=== PATIENT | male | born 1985 ===

== ENCOUNTER 2021-05-11 13:30 | Outpatient (REF) | payer MEDICAID, OTHER, SELFPAY ==
--- NOTE | ~2021-05-11 | XR_ITS ---
EXAMINATION: XR CHEST CLINICAL INFORMATION: Chest pain COMPARISON: None TECHNIQUE: 2 views of the chest were obtained. FINDINGS: No significant abnormality is noted involving the heart, lungs, mediastinum, bony thorax or soft tissues. XR/XR chest 2V IMPRESSION: Unremarkable examination.
== END 2021-05-11 13:31 | disposition home or self-care (01) ==
LOC: HO.XRAY 13:30
PROVIDERS: PCP Emergency Medicine; Visit Provider Emergency Medicine
DX: R07.9 Chest pain, unspecified (principal); M54.9 Dorsalgia, unspecified
CPT/HCPCS: 71046

== ENCOUNTER 2022-01-04 14:19 | Outpatient (REF) | payer MEDICAID, OTHER, SELFPAY ==
--- NOTE | ~2022-01-04 | XR_ITS ---
EXAMINATION: XR CERVICAL SPINE XR THORACIC SPINE CLINICAL INFORMATION: Cervical dorsalgia. COMPARISON: None TECHNIQUE: 6 views of the cervical spine, 2 views thoracic spine FINDINGS: Cervical Spine: There is reversal of the normal cervical lordosis. Vertebral body heights are well maintained. There is disc space narrowing at C7-T1. Remainder of the disc spaces are well maintained. Foramina are not optimally visualized. No soft tissue swelling, fractures or subluxations are seen. Thoracic Spine: Vertebral body heights and disc spaces are well maintained. No paravertebral soft tissue swelling is seen. No fractures or bony destructive lesions XR/XR cervical spine 4V IMPRESSION: 1. Mild disc space narrowing at C7-T1. 2. No significant abnormality seen in the thoracic spine.
--- NOTE | ~2022-01-04 | XR_ITS ---
EXAMINATION: XR CERVICAL SPINE XR THORACIC SPINE CLINICAL INFORMATION: Cervical dorsalgia. COMPARISON: None TECHNIQUE: 6 views of the cervical spine, 2 views thoracic spine FINDINGS: Cervical Spine: There is reversal of the normal cervical lordosis. Vertebral body heights are well maintained. There is disc space narrowing at C7-T1. Remainder of the disc spaces are well maintained. Foramina are not optimally visualized. No soft tissue swelling, fractures or subluxations are seen. Thoracic Spine: Vertebral body heights and disc spaces are well maintained. No paravertebral soft tissue swelling is seen. No fractures or bony destructive lesions XR/XR thoracic spine 3V IMPRESSION: 1. Mild disc space narrowing at C7-T1. 2. No significant abnormality seen in the thoracic spine.
== END 2022-01-04 14:20 | disposition home or self-care (01) ==
LOC: HO.XRAY 14:19
PROVIDERS: Visit Provider Registered Nurse
DX: M54.2 Cervicalgia (principal); M54.9 Dorsalgia, unspecified
CPT/HCPCS: 72050; 72072

== ENCOUNTER 2022-01-16 19:03 | Emergency (ER) | payer MEDICAID, OTHER, SELFPAY ==
[2022-01-16 19:24] VITALS: BP 128/67; PULSE 77; RESP 18; TEMP 36.7; O2SAT 97; BMI 24.9
--- NOTE | 2022-01-16 19:24 | ED.CHESTPAIN ---
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 Patient states that he has a constant burning sensation which is 9/10 at its worst. He states that the pain is in his the neck, throat, and chest. The pain does not change with hunger or with eating. He states that he has been seen by his primary care doctor and was started on medication but does not know the name of this medication. He states that the medication is not working. The patient states that he is not taking any other medications for the burning sensation. He also states for the last 3 days he has been urinating more frequently knees had pain with urination. He has not noticed any penile discharge. He is sexually active and states that he last had intercourse 1 month prior. The patient is being treated for TB exposure but he does not know the medications that he is taking. <Chris Christie MD - Last Filed: 01/16/22 21:35> MD complaint: chest pain <Chris Christie MD - Last Filed: 01/16/22 21:35> Onset (ago): month(s) (3) <Chris Christie MD - Last Filed: 01/16/22 21:35> Timing of current episode: constant <Chris Christie MD - Last Filed: 01/16/22 21:35> Prior episodes: Yes <Chris Christie MD - Last Filed: 01/16/22 21:35> Pain location: left chest <Chris Christie MD - Last Filed: 01/16/22 21:35> Pain radiation: none <Chris Christie MD - Last Filed: 01/16/22 21:35> Severity: severe <Chris Christie MD - Last Filed: 01/16/22 21:35> Pain scale (0-10): 8 <Chris Christie MD - Last Filed: 01/16/22 21:35> Quality: other (Burning) <Chris Christie MD - Last Filed: 01/16/22 21:35> Relieving factors: nothing <Chris Christie MD - Last Filed: 01/16/22 21:35> Exacerbating factors: nothing <Chris Christie MD - Last Filed: 01/16/22 21:35> Related Data Home Medications: Previous Rx's Medication Instructions Recorded aluminum hydrox-magnesium carb 254 10 ml PO QID PRN dyspepsia #355 mL 01/16/22 mg-237.5 mg/5 mL oral suspension (Gaviscon Extra Strength) omeprazole 20 mg capsule,delayed 40 mg PO DAILY 30 days #60 caps 01/16/22 release <Patricia Wang CNP - Last Filed: 01/16/22 20:59> Allergies/Adverse Reactions: Allergies Allergy/AdvReac Type Severity Reaction Status Date / Time No Known Allergies Allergy Verified 01/16/22 19:30 <Patricia Wang CNP - Last Filed: 01/16/22 20:59> Review of Systems Review of Systems: Yes all other systems are reviewed and are negative <Chris Christie MD - Last Filed: 01/16/22 21:35> [facility] Past Medical History [facility] Narrative: Past medical history: TB treatment-current. Past surgical history: None. Social history: He denies tobacco, alcohol and drug use. <Chris Christie MD - Last Filed: 01/16/22 21:35> Social History Social History: Social History Advance Directives: No Advance Directives Information Provided: No <Patricia WangDAVID - Last Filed: 01/16/22 20:59> Physical Exam Vital Signs: Vital Signs: Last Vital Signs Temp 99.1 F 01/16/22 20:57 Pulse 75 01/16/22 20:57 Resp 20 01/16/22 20:57 BP 131/90 H 01/16/22 20:57 Pulse Ox 99 01/16/22 20:57 O2 Del Method 01/16/22 20:57 BMI result Body Mass Index 24.9 <Patricia Wang CNP - Last Filed: 01/16/22 20:59> Vital Signs: Last Vital Signs Temp 99.1 F 01/16/22 20:57 Pulse 75 01/16/22 20:57 Resp 20 01/16/22 20:57 BP 131/90 H 01/16/22 20:57 Pulse Ox 99 01/16/22 20:57 O2 Del Method 01/16/22 20:57 BMI result Body Mass Index 24.9 <Chris Christie MD - Last Filed: 01/16/22 21:35> Const: General: cooperative and no acute distress <Chris Christie MD - Last Filed: 01/16/22 21:35> Orientation/consciousness: oriented to person and oriented to place <Chris Christie MD - Last Filed: 01/16/22 21:35> Limitations: no limitations <Chris Christie MD - Last Filed: 01/16/22 21:35> HEENT: Head: Yes normal to inspection, Yes normocephalic and Yes atraumatic <Chris Christie MD - Last Filed: 01/16/22 21:35> Ears: external ears normal <Chris Christie MD - Last Filed: 01/16/22 21:35> General nose exam: Normal external nose present <Chris Christie MD - Last Filed: 01/16/22 21:35> Face and sinus: Yes normal facial exam <Chris Christie MD - Last Filed: 01/16/22 21:35> Mouth: Normal oral and palatal mucosa present <Chris Christie MD - Last Filed: 01/16/22 21:35> Throat: Yes posterior oropharynx normal <MD Eleanor Petersen Last Filed: 01/16/22 21:35> Eyes: General: appearance normal, both eyes and all related structures <Chris Christie MD - Last Filed: 01/16/22 21:35> Pupils: Equal, round and reactive pupils present <Chris Christie MD - Last Filed: 01/16/22 21:35> Neck: Neck: Yes normal visual inspection, Yes no lymphadenopathy, Yes trachea midline and Yes supple <Chris Christie MD - Last Filed: 01/16/22 21:35> Chest: Chest palpation & inspection: normal inspection of the chest and normal palpation of entire chest wall <Chris Christie MD - Last Filed: 01/16/22 21:35> Resp: Effort & Inspection: normal respiratory effort and able to speak in complete sentences <MD Eleanor Petersen Last Filed: 01/16/22 21:35> Auscultation: clear to auscultation bilaterally <Chris Christie MD - Last Filed: 01/16/22 21:35> Cardio: Rate: regular rate <MD Eleanor Petersen Last Filed: 01/16/22 21:35> Rhythm: regular rhythm <MD Eleanor Petersen Last Filed: 01/16/22 21:35> Heart sounds: S1 normal heart sound present, S2 normal heart sound present and no murmurs <MD Eleanor Petersen Last Filed: 01/16/22 21:35> GI: Inspection: Yes normal to inspection <MD Eleanor Petersen Last Filed: 01/16/22 21:35> Palpation (GI): Soft to palpation, nontender and no guarding <MD Eleanor Petersen Last Filed: 01/16/22 21:35> Auscultation: normal bowel sounds <MD Eleanor Petersen Last Filed: 01/16/22 21:35> : Other: Normal, circumcised male penis, no penile discharge noted, no lesions noted, testicles are descended, nontender <Chris Christie MD - Last Filed: 01/16/22 21:35> General: Yes no CVA tenderness <Chris Christie MD - Last Filed: 01/16/22 21:35> Back/Spine/Pelvis: Back: no CVA tenderness <Chris Christie MD - Last Filed: 01/16/22 21:35> Skin: General skin exam: no rashes or lesions noted <Chris Christie MD - Last Filed: 01/16/22 21:35> Neuro: General: oriented to person and oriented to place <Chris Christie MD - Last Filed: 01/16/22 21:35> Cranial nerves: Yes CN's II-XII intact bilaterally and Yes Equal, round and reactive pupils present <Chris Christie MD - Last Filed: 01/16/22 21:35> Cognition (Neuro): normal cognition <Chris Christie MD - Last Filed: 01/16/22 21:35> Motor exam (neuro): 5/5 motor strength present throughout <Chris Christie MD - Last Filed: 01/16/22 21:35> Extrem: General: Yes normal to inspection <Chris Christie MD - Last Filed: 01/16/22 21:35> Psych: Appearance: grossly normal <Chris Christie MD - Last Filed: 01/16/22 21:35> Speech and movement: Normal speech and movement present <Chris Christie MD - Last Filed: 01/16/22 21:35> Affect: normal affect <Chris Christie MD - Last Filed: 01/16/22 21:35> Attitude: cooperative <Chris Christie MD - Last Filed: 01/16/22 21:35> Thought process: Normal thought process present <Chris Christie MD - Last Filed: 01/16/22 21:35> Thought content: Normal thought content present <Chris Christie MD - Last Filed: 01/16/22 21:35> Course Course Course Narrative: RME: Patient is a 36 year old male with no reported pmhx, who presents to the emergency department for chest pain. Described as a burning pain. felt all throughout the middle and left anterior chest. Pain is constant since onset a few months ago. States it is not made worsewith eating or while lying supine. Also having dysuria x 3 days. States he has been taking a medication from PCP for TB, reports he does not have an active infection but to prevent spread. Denies shortness of breath, weight loss, night sweats. PE: CA&Ox4, speaking clear full sentences, LSCTA, no respiratory distress. Ambulatory with steady gait. Epigastric tenderness upon exam Plan: CBC, CMP, troponin, EKG, Chest x-ray, unrinalysis <Patricia Wang, TAX ASSESSOR - Last Filed: 01/16/22 20:59> RME: Patient is a 36 year old male with no reported pmhx, who presents to the emergency department for chest pain. Described as a burning pain. felt all throughout the middle and left anterior chest. Pain is constant since onset a few months ago. States it is not made worsewith eating or while lying supine. Also having dysuria x 3 days. States he has been taking a medication from PCP for TB, reports he does not have an active infection but to prevent spread. Denies shortness of breath, weight loss, night sweats. PE: CA&Ox4, speaking clear full sentences, LSCTA, no respiratory distress. Ambulatory with steady gait. Epigastric tenderness upon exam Plan: CBC, CMP, troponin, EKG, Chest x-ray, unrinalysis Course: RME reviewed. Patient's physical examination was unremarkable, exam was normal. Laboratory evaluation revealed a normal CBC. CMP revealed an elevated glucose of 143. High sensitive troponin I was below detectable limits. Urinalysis was negative. COVID-19 and influenza were negative. Is 12 EKG was unremarkable. At this time I suspect that the patient's pain is secondary to his esophagitis/gastritis I did discuss this with him. Patient is not no what medications he is taking. I prescribed Prilosec 40 mg daily and this time Gaviscon 4 times a day. I also ordered a urine for gonorrhea and chlamydia. The patient was advised to follow-up with his PCP in 2 weeks for re-evaluation and return if he is worse in any way. <Chris Christie MD - Last Filed: 01/16/22 21:35> MDM - Chest Pain Medical Records Data Attestation: I reviewed the patient's medical records. <Chris Christie MD - Last Filed: 01/16/22 21:35> Lab Data Attestation: I reviewed the patient's lab results. <Chris Christie MD - Last Filed: 01/16/22 21:35> Result diagrams: : 01/16/22 20:07 01/16/22 20:07 <Patricia Wang CNP - Last Filed: 01/16/22 20:59> Labs: Lab Results 01/16/22 01/16/22 01/16/22 Range/Units 20:00 20:00 20:00 WBC (4.8-10.8) X10*3/uL RBC (4.60-5.80) X10*6/uL Hgb (14.0-18.0) g/dl Hct (42.0-52.0) % MCV (80.0-98.0) fL MCH (27.0-33.0) pg MCHC (31.0-36.0) g/dl RDW (11.0-16.0) % Plt Count (160-400) X10*3/uL MPV (9.4-12.4) fL Immature Gran % (Auto) (0.0-0.4) % Neut % (Auto) (45-73) % Lymph % (Auto) (20-40) % [place] % (Auto) (2-11) % Eos % (Auto) (0-4) % Baso % (Auto) (0-2) % Lymph # (Auto) (1.2-4.9) X10*3/uL [place] # (Auto) (0.1-1.2) X10*3/uL Eos # (Auto) (0.0-0.4) X10*3/uL Baso # (Auto) (0.0-0.2) X10*3/uL Abs Immat Gran (auto) (0.00-0.03) X10*3/uL Absolute Neuts (auto) (2.0-8.3) x10*3/uL Absolute Nucleated RBC (0.0-0.012) X10*3/uL Nucleated RBC % (auto) (0.0-0.2) /100WBC Sodium (135-145) mmol/L Potassium (3.3-5.1) mmol/L Chloride (96-108) mmol/L Carbon Dioxide (22-29) mmol/L Anion Gap (12-20) BUN (9-16) mg/dL Creatinine (0.5-1.4) mg/dL Estim Creat Clear Calc Estimated GFR Random Glucose (60-115) mg/dL Calcium (8.4-10.2) mg/dL Total Bilirubin (0.0-1.0) mg/dL AST (5-37) U/L ALT (0-40) U/L Alkaline Phosphatase (39-117) U/L Troponin I High Sens (<3.5-35.0) ng/L Total Protein (6.5-8.0) g/dL Albumin (3.5-5.0) g/dL Lipase (8-78) U/L Urine Color Yellow Urine Appearance Clear Urine pH 6.5 (5.0-9.0) Ur Specific [place] <= 1.005 (1.005-1.025) Urine Protein Negative (Neg-Trace) mg/dL Urine Glucose (UA) Negative (Negative) mg/dL Urine Ketones Negative (Negative) mg/dL Urine Blood Negative (Negative) Urine Nitrite Negative (Negative) Ur Leukocyte Esterase Negative (Negative) COVID-19 ([facility]ICK) Negative (Negative) COVID-19 Clin Com See Note Influenza Type A ([facility]) Negative (Negative) Influenza Type B ([facility]S) Negative (Negative) Influenza A & B Note See Note 01/16/22 01/16/22 01/16/22 Range/Units 20:07 20:07 20:07 WBC 5.4 (4.8-10.8) X10*3/uL RBC 4.49 L (4.60-5.80) X10*6/uL Hgb 14.3 (14.0-18.0) g/dl Hct 40.7 L (42.0-52.0) % MCV 90.6 (80.0-98.0) fL MCH 31.8 (27.0-33.0) pg MCHC 35.1 (31.0-36.0) g/dl RDW 11.9 (11.0-16.0) % Plt Count 212 (160-400) X10*3/uL MPV 8.9 L (9.4-12.4) fL Immature Gran % (Auto) 0.2 (0.0-0.4) % Neut % (Auto) 51.3 (45-73) % Lymph % (Auto) 40.6 H (20-40) % [place] % (Auto) 5.8 (2-11) % Eos % (Auto) 1.5 (0-4) % Baso % (Auto) 0.6 (0-2) % Lymph # (Auto) 2.2 (1.2-4.9) X10*3/uL [place] # (Auto) 0.3 (0.1-1.2) X10*3/uL Eos # (Auto) 0.1 (0.0-0.4) X10*3/uL Baso # (Auto) 0.0 (0.0-0.2) X10*3/uL Abs Immat Gran (auto) 0.01 (0.00-0.03) X10*3/uL Absolute Neuts (auto) 2.8 (2.0-8.3) x10*3/uL Absolute Nucleated RBC 0.000 (0.0-0.012) X10*3/uL Nucleated RBC % (auto) 0.0 (0.0-0.2) /100WBC Sodium 140 (135-145) mmol/L Potassium 4.0 (3.3-5.1) mmol/L Chloride 104 (96-108) mmol/L Carbon Dioxide 27 (22-29) mmol/L Anion Gap 13 (12-20) BUN 10 (9-16) mg/dL Creatinine 0.77 (0.5-1.4) mg/dL Estim Creat Clear Calc 125.1 Estimated GFR > 60 Random Glucose 143 H (60-115) mg/dL Calcium 9.3 (8.4-10.2) mg/dL Total Bilirubin 0.3 (0.0-1.0) mg/dL AST 28 (5-37) U/L ALT 39 (0-40) U/L Alkaline Phosphatase 96 (39-117) U/L Troponin I High Sens < 3.5 (<3.5-35.0) ng/L Total Protein 7.2 (6.5-8.0) g/dL Albumin 4.5 (3.5-5.0) g/dL Lipase 17 (8-78) U/L Urine Color Urine Appearance Urine pH (5.0-9.0) Ur Specific [place] (1.005-1.025) Urine Protein (Neg-Trace) mg/dL Urine Glucose (UA) (Negative) mg/dL Urine Ketones (Negative) mg/dL Urine Blood (Negative) Urine Nitrite (Negative) Ur Leukocyte Esterase (Negative) COVID-19 ([facility]ICK) (Negative) COVID-19 Clin Com Influenza Type A ([facility]) (Negative) Influenza Type B ([facility]) (Negative) Influenza A & B Note <Patricia Wang CNP - Last Filed: 01/16/22 20:59> Lab Results 01/16/22 01/16/22 01/16/22 Range/Units 20:00 20:00 20:00 WBC (4.8-10.8) X10*3/uL RBC (4.60-5.80) X10*6/uL Hgb (14.0-18.0) g/dl Hct (42.0-52.0) % MCV (80.0-98.0) fL MCH (27.0-33.0) pg MCHC (31.0-36.0) g/dl RDW (11.0-16.0) % Plt Count (160-400) X10*3/uL MPV (9.4-12.4) fL Immature Gran % (Auto) (0.0-0.4) % Neut % (Auto) (45-73) % Lymph % (Auto) (20-40) % [place] % (Auto) (2-11) % Eos % (Auto) (0-4) % Baso % (Auto) (0-2) % Lymph # (Auto) (1.2-4.9) X10*3/uL [place] # (Auto) (0.1-1.2) X10*3/uL Eos # (Auto) (0.0-0.4) X10*3/uL Baso # (Auto) (0.0-0.2) X10*3/uL Abs Immat Gran (auto) (0.00-0.03) X10*3/uL Absolute Neuts (auto) (2.0-8.3) x10*3/uL Absolute Nucleated RBC (0.0-0.012) X10*3/uL Nucleated RBC % (auto) (0.0-0.2) /100WBC Sodium (135-145) mmol/L Potassium (3.3-5.1) mmol/L Chloride (96-108) mmol/L Carbon Dioxide (22-29) mmol/L Anion Gap (12-20) BUN (9-16) mg/dL Creatinine (0.5-1.4) mg/dL Estim Creat Clear Calc Estimated GFR Random Glucose (60-115) mg/dL Calcium (8.4-10.2) mg/dL Total Bilirubin (0.0-1.0) mg/dL AST (5-37) U/L ALT (0-40) U/L Alkaline Phosphatase (39-117) U/L Troponin I High Sens (<3.5-35.0) ng/L Total Protein (6.5-8.0) g/dL Albumin (3.5-5.0) g/dL Lipase (8-78) U/L Urine Color Yellow Urine Appearance Clear Urine pH 6.5 (5.0-9.0) Ur Specific [place] <= 1.005 (1.005-1.025) Urine Protein Negative (Neg-Trace) mg/dL Urine Glucose (UA) Negative (Negative) mg/dL Urine Ketones Negative (Negative) mg/dL Urine Blood Negative (Negative) Urine Nitrite Negative (Negative) Ur Leukocyte Esterase Negative (Negative) COVID-19 ([facility]ICK) Negative (Negative) COVID-19 Clin Com See Note Influenza Type A ([facility]) Negative (Negative) Influenza Type B ([facility]) Negative (Negative) Influenza A & B Note See Note 01/16/22 01/16/22 01/16/22 Range/Units 20:07 20:07 20:07 WBC 5.4 (4.8-10.8) X10*3/uL RBC 4.49 L (4.60-5.80) X10*6/uL Hgb 14.3 (14.0-18.0) g/dl Hct 40.7 L (42.0-52.0) % MCV 90.6 (80.0-98.0) fL MCH 31.8 (27.0-33.0) pg MCHC 35.1 (31.0-36.0) g/dl RDW 11.9 (11.0-16.0) % Plt Count 212 (160-400) X10*3/uL MPV 8.9 L (9.4-12.4) fL Immature Gran % (Auto) 0.2 (0.0-0.4) % Neut % (Auto) 51.3 (45-73) % Lymph % (Auto) 40.6 H (20-40) % [place] % (Auto) 5.8 (2-11) % Eos % (Auto) 1.5 (0-4) % Baso % (Auto) 0.6 (0-2) % Lymph # (Auto) 2.2 (1.2-4.9) X10*3/uL [place] # (Auto) 0.3 (0.1-1.2) X10*3/uL Eos # (Auto) 0.1 (0.0-0.4) X10*3/uL Baso # (Auto) 0.0 (0.0-0.2) X10*3/uL Abs Immat Gran (auto) 0.01 (0.00-0.03) X10*3/uL Absolute Neuts (auto) 2.8 (2.0-8.3) x10*3/uL Absolute Nucleated RBC 0.000 (0.0-0.012) X10*3/uL Nucleated RBC % (auto) 0.0 (0.0-0.2) /100WBC Sodium 140 (135-145) mmol/L Potassium 4.0 (3.3-5.1) mmol/L Chloride 104 (96-108) mmol/L Carbon Dioxide 27 (22-29) mmol/L Anion Gap 13 (12-20) BUN 10 (9-16) mg/dL Creatinine 0.77 (0.5-1.4) mg/dL Estim Creat Clear Calc 125.1 Estimated GFR > 60 Random Glucose 143 H (60-115) mg/dL Calcium 9.3 (8.4-10.2) mg/dL Total Bilirubin 0.3 (0.0-1.0) mg/dL AST 28 (5-37) U/L ALT 39 (0-40) U/L Alkaline Phosphatase 96 (39-117) U/L Troponin I High Sens < 3.5 (<3.5-35.0) ng/L Total Protein 7.2 (6.5-8.0) g/dL Albumin 4.5 (3.5-5.0) g/dL Lipase 17 (8-78) U/L Urine Color Urine Appearance Urine pH (5.0-9.0) Ur Specific [place] (1.005-1.025) Urine Protein (Neg-Trace) mg/dL Urine Glucose (UA) (Negative) mg/dL Urine Ketones (Negative) mg/dL Urine Blood (Negative) Urine Nitrite (Negative) Ur Leukocyte Esterase (Negative) COVID-19 ([facility]) (Negative) COVID-19 Clin Com Influenza Type A ([facility]) (Negative) Influenza Type B ([facility]) (Negative) Influenza A & B Note <Chris Christie MD - Last Filed: 01/16/22 21:35> ECG Data ECG #1: Interpretation: 2000: Normal sinus rhythm with a rate of 71, normal intervals, no ST segment elevation, no ST segment depression, no PVCs, no PACs, no T-wave abnormalities. This is a normal EKG. There is no previous EKG for comparison. <Chris Christie MD - Last Filed: 01/16/22 21:35> Discharge Plan Discharge Clinical Impression: Esophagitis, Dysuria Gastritis Qualifiers: Gastritis type: unspecified gastritis Chronicity: acute Gastritis bleeding: without bleeding Qualified Code(s): K29.00 - Acute gastritis without bleeding <Patricia Wang CNP - Last Filed: 01/16/22 20:59> Patient Disposition: Home, Self-Care <Patricia Wang CNP - Last Filed: 01/16/22 20:59> Instructions: Gastritis (ED), Dysuria (ED), Esophagitis (ED) <Patricia Wang CNP - Last Filed: 01/16/22 20:59> Additional Instructions: Your blood work was normal. Your urinalysis was normal with no signs of an infection Your COVID-19 and flu test were negative. Your EKG was normal. At this time, I believe that your chest and throat pain or caused by too much acid in your stomach and on your esophagus which is causing the burning. Take Prilosec (omeprazole) 20 mg pills, 2 pill once a day for 1 month. This medication shuts off your acid production and lets the inflammation in your stomach and esophagus heal. Take Gaviscon 10 mL 4 times a day for 2 weeks. I sent a urine test for gonorrhea and chlamydia, this will not come back today, you will need to check this with your doctor to see if this is the cause of the burning sensation when you. Follow-up with your doctor in 2 days. Please return to the emergency department if your symptoms get worse or if you develop any symptoms that are concerning to you. <Patricia Wang CNP - Last Filed: 01/16/22 20:59> Prescriptions: New omeprazole 20 mg capsule,delayed release(DR/EC) 40 mg PO DAILY 30 Days Qty: 60 0RF Gaviscon Extra Strength 254-237.5 mg/5 mL suspension 10 ml PO QID PRN (Reason: dyspepsia) Qty: 355 0RF <Patricia Wang CNP - Last Filed: 01/16/22 20:59>
--- NOTE | 2022-01-16 19:30 | ECG_ITS ---
Test Reason : CP Blood Pressure : / mmHG Vent. Rate : 071 BPM Atrial Rate : 071 BPM P-R Int : 154 ms QRS Dur : 092 ms QT Int : 392 ms P-R-T Axes : 053 054 035 degrees QTc Int : 425 ms Normal sinus rhythm Normal ECG No previous ECGs available Referred By: Patricia Wang Electronically Signed By:ERIKA DIAZ MD
[2022-01-16 20:13] LABS: MANUAL DIFF FLAG NO
[2022-01-16 20:16] LABS: Basophils Percent Auto 0.6 % (0-2); Eosinophils Absolute Auto 0.1 X10*3/uL (0.0-0.4); Eosinophils Percent Auto 1.5 % (0-4); Hematocrit 40.7 % (42.0-52.0); Hemoglobin 14.3 g/dl (14.0-18.0); Imm Gran Abs Auto 0.01 X10*3/uL (0.00-0.03); Imm Gran Pct Auto 0.2 % (0.0-0.4); Lymphocytes Absolute Auto 2.2 X10*3/uL (1.2-4.9); Lymphocytes Percent Auto 40.6 % (20-40); Mean Corpuscular HGB Conc 35.1 g/dl (31.0-36.0); Mean Corpuscular Hemoglobin 31.8 pg (27.0-33.0); Mean Corpuscular Volume 90.6 fL (80.0-98.0); Mean Platelet Volume 8.9 fL (9.4-12.4); Monocytes Absolute Auto 0.3 X10*3/uL (0.1-1.2); Monocytes Percent Auto 5.8 % (2-11); Neutrophils Absolute Auto 2.8 x10*3/uL (2.0-8.3); Neutrophils Percent Auto 51.3 % (45-73); Platelet Count 212 X10*3/uL (160-400); Red Blood Count 4.49 X10*6/uL (4.60-5.80); Red Cell Distribution Width 11.9 % (11.0-16.0); White Blood Count 5.4 X10*3/uL (4.8-10.8)
[2022-01-16 20:26] LABS: Appearance Urine Clear; Color Urine Yellow; Glucose Urine UA Negative (Negative); Leukocyte Esterase Urine Negative (Negative); Nitrite Urine Negative (Negative); PH 6.5 (5.0-9.0); Specific Gravity - Urine <= 1.005 (1.005-1.025); Urine Blood Negative (Negative); Urine Ketones Negative (Negative); Urine Protein Negative (Neg-Trace)
[2022-01-16 20:35] LABS: Alanine Aminotransferase 39 U/L (0-40); Albumin Level 4.5 g/dL (3.5-5.0); Alkaline Phosphatase 96 U/L (39-117); Anion Gap 13 (12-20); Aspartate Amino Transferase 28 U/L (5-37); Bilirubin Total 0.3 mg/dL (0.0-1.0); Blood Urea Nitrogen 10 mg/dL (9-16); Calcium 9.3 mg/dL (8.4-10.2); Carbon Dioxide 27 mmol/L (22-29); Chloride 104 mmol/L (96-108); Creatinine Clr Calc Pharmacy 125.1; Estimated Glomerular Filt Rate > 60; Glucose Random 143 mg/dL (60-115); Lipase 17 U/L (8-78); Sodium 140 mmol/L (135-145); Total Protein 7.2 g/dL (6.5-8.0)
[2022-01-16 20:36] LABS: IDNOW Serial# BCCEAD1C; Influenza A Negative (Negative); Influenza B2 Negative (Negative)
[2022-01-16 20:37] LABS: COVID-19 Test Negative (Negative); IDNOW Serial# 16C4AD1C
[2022-01-16 20:42] LABS: Troponin-I High Sensitivity < 3.5 ng/L (<3.5-35.0)
[2022-01-16 20:57] VITALS: BP 131/90; PULSE 75; RESP 20; TEMP 37.3; O2SAT 99
[2022-01-16 21:49] VITALS: BP 111/71; PULSE 75; RESP 16; TEMP 37; O2SAT 98
[2022-01-17 01:16] LABS: CT PCR NOT DETECTED (Not Detect.); NG PCR NOT DETECTED (Not Detect.)
== END 2022-01-16 22:00 | disposition home or self-care (01) ==
PROVIDERS: Nurse Practitioner Family; Emergency Provider Emergency Medicine Emergency Medical Services
DX: K29.00 Acute gastritis without bleeding (principal); K20.90 Esophagitis, unspecified without bleeding; R30.0 Dysuria; Z20.822 Contact with and (suspected) exposure to COVID-19
CPT/HCPCS: 80053; 81003; 83690; 84484; 85025; 87491; 87502; 87591; 87635; 93005; 99283; 99284

== ENCOUNTER 2022-01-23 00:35 | Emergency (ER) | payer MEDICAID, OTHER, SELFPAY ==
--- NOTE | ~2022-01-23 | XR_ITS ---
EXAMINATION: XR CHEST CLINICAL INFORMATION: Chest pain COMPARISON: 05/11/2021 TECHNIQUE: 2 views of the chest were obtained. FINDINGS: The lungs are clear with no focal consolidation. No evidence of pneumothorax, pulmonary edema, or pleural effusions. The cardiomediastinal silhouette is unremarkable. No acute osseous findings. XR/XR chest 2V IMPRESSION: No acute cardiopulmonary findings.
[2022-01-23 00:40] VITALS: BP 126/79; PULSE 69; RESP 18; TEMP 36.6; O2SAT 100; BMI 30.4
--- OUTSIDE RECORDS SUMMARY | 2022-01-23 01:52 | XMS_ITS | Continuity of Care Document ---
:1985 Author Organization [facility] Address [address] [place] [id number]- Care Team Providers Name Role Phone Stella MCMILLAN, Kira Primary Care Physician Encounter [facility] [place] Date(s): 10/30/21 - 11/29/21 [facility] [address] [id number] Allergies, Adverse Reactions, Alerts No Known Medication Allergies Immunizations Given and Recorded Vaccine Date Status Refusal Reason influenza virus vaccine, inactivated 03/01/13 Given influenza virus vaccine, inactivated1 01/12/12 Given influenza virus vaccine, inactivated2 03/30/11 Given hepatitis B adult vaccine3 01/12/12 Given hepatitis B adult vaccine4 04/13/11 Given tetanus-diphtheria toxoids (Td)5 03/30/11 Given 1Admin Note: [id number] Note: vis 09/15/20103Admin Note: VIS 03/25/20114 Admin Note: VIS 09/07/06 [id number] Note: vis 10/19/2007 Given Medications albuterol CFC free 90 mcg/inh inhalation aerosol 2 puffs, Inhalation, 4 times a day, PRN for wheezing, # 18 Gm, 0 Refills, Maintenance, 11/29/13 17:17:53, Aerosol, 2 puffs Inhalation 4 times a day,PRN:for wheezing Start Date: 11/29/13 Status: Orderedamitriptyline 10 mg oral tablet 1 tablet = 10 mg, By Mouth, Daily at bedtime, # 90 tablet, 2 Refills, Maintenance, 06/04/13 13:30:10, Tablet, 1 tablet By Mouth Daily at bedtime Start Date: 06/04/13 Status: OrderedFlomax 0.4 mg oral capsule 0.4 mg, 1, capsule, By Mouth, Daily, # 5 capsule, Refills 0, Tot. Refills 0, Maintenance, 10/16/15 9:02:54, Print Requisition Start Date: 10/16/15 Status: Orderedibuprofen 600 mg oral tablet 1 tablet = 600 mg, By Mouth, Every 8 hours, PRN as needed for pain, Nauruan label, # 42 tablet, 0 Refills, Maintenance, 12/09/14 11:50:41, Tablet, 1 tablet By Mouth Every 8 hours,x14 days,PRN:as neededfor pain,Instr:Nauruan label Start Date: 12/09/14 Stop Date: 12/23/14 Status: OrderedLacri-Lube S.O.P. - ointment 1 application, Eyes, Both, Daily at bedtime, PRN for dry eyes, # 15 Gm, 0 Refills, Maintenance, Ointment Start Date: 08/11/12 Stop Date: 09/01/12 Status: Orderedomeprazole 20 mg oral enteric coated capsule 1 capsule = 20 mg, By Mouth, Daily, cymro instructions, # 30 capsule, 0 Refills, Maintenance, 03/21/14 15:23:52, EC Capsule, 1 capsule By Mouth Daily,Instr:cymro instructions Start Date: 03/21/14 Status: OrderedPercocet-5/325 325 mg-5 mg oral tablet 1, tablet, By Mouth, Every 4 hours, PRN, partial fill possible, # 12 tablet, Refills 0, Tot. Refills0, Maintenance, for pain, 10/16/15 9:03:05, Print Requisition, Tablet Start Date: 10/16/15 Status: Orderedrifampin 300 mg oral capsule 2 capsule = 600 mg, By Mouth, Daily, # 60 capsule, 3 Refills, Maintenance, 09/07/21 14:53:00 EDT, [facility], home delivery- ; [address] [place] [address], [facility], , 165, cm, 08/25/21 11:04:00 EDT, Height Start Date: 09/07/21 Stop Date: 01/05/22 Status: OrderedZofran ODT 4 mg oral tablet, disintegrating 1 tablet = 4 mg, By Mouth, 3 times a day, # 8 tablet, 0 Refills, Maintenance, 10/16/15 9:03:17 Start Date: 10/16/15 Status: Ordered Problem List Condition Confirmation Course Effective Dates Status Health Stat us Informant Tinea pedis Confirmed Active Social History Social History Type Response Smoking Status Never smoker entered on: 06/14/13 Sex Patient Care team information PersonnelName: Kira Douglas NP Address: Address: [address] [place] [id number]
--- OUTSIDE RECORDS SUMMARY | 2022-01-23 01:52 | XMS_ITS | Continuity of Care Document ---
:1985 Author Organization [facility] Address [address] [place] [address]- Care Team Providers Name Role Phone Stella MCMILLAN, Kira Primary Care Physician Encounter [facility] Date(s): 10/30/21 - 11/29/21 [facility] [address] [address] Allergies, Adverse Reactions, Alerts No Known Medication Allergies Immunizations Given and Recorded Vaccine Date Status Refusal Reason influenza virus vaccine, inactivated 03/01/13 Given influenza virus vaccine, inactivated1 01/12/12 Given influenza virus vaccine, inactivated2 03/30/11 Given hepatitis B adult vaccine3 01/12/12 Given hepatitis B adult vaccine4 04/13/11 Given tetanus-diphtheria toxoids (Td)5 03/30/11 Given 1Admin Note: [id number] Note: vis 09/15/20103Admin Note: VIS 03/25/20114 Admin Note: VIS 09/07/06 [id number] Note: vis 10/19/2007 Given Medications albuterol CFC [...] 8 hours, PRN as needed for pain, Kittitian label, # 42 tablet, 0 Refills, Maintenance, 12/09/14 11:50:41, Tablet, 1 tablet By Mouth Every 8 hours,x14 days,PRN:as neededfor pain,Instr:Kittitian label Start Date: 12/09/14 Stop Date: 12/23/14 Status: OrderedLacri-Lube S.O.P. - ointment 1 application, Eyes, Both, Daily at bedtime, PRN for dry eyes, # 15 Gm, 0 Refills, Maintenance, Ointment Start Date: 08/11/12 Stop Date: 09/01/12 Status: Orderedomeprazole 20 mg oral enteric coated capsule 1 capsule = 20 mg, By Mouth, Daily, guinean instructions, # 30 capsule, 0 Refills, Maintenance, 03/21/14 15:23:52, EC Capsule, 1 capsule By Mouth Daily,Instr:guinean instructions Start Date: 03/21/14 Status: OrderedPercocet-5/325 325 mg-5 mg oral tablet 1, tablet, By Mouth, Every 4 hours, PRN, partial fill possible, # 12 tablet, Refills 0, Tot. Refills0, Maintenance, for pain, 10/16/15 9:03:05, Print Requisition, Tablet Start Date: 10/16/15 Status: Orderedrifampin 300 mg oral capsule 2 capsule = 600 mg, By Mouth, Daily, # 60 capsule, 3 Refills, Maintenance, 09/07/21 14:53:00 EDT, [facility], home delivery- ; [address] [place] [address], [facility], , 165, cm, 08/25/21 11:04:00 EDT, [...] information PersonnelName: Kira Douglas NP Address: Address: [address] [place] [id number]
--- OUTSIDE RECORDS SUMMARY | 2022-01-23 01:52 | XMS_ITS | Continuity of Care Document ---
:1985 Author Organization [facility] Address [address] [place] [address]- Care Team Providers Name Role Phone Stella MCMILLAN, Kira Primary Care Physician Encounter [facility] [place] Date(s): 10/30/21 - 11/29/21 [facility] [address] [address] Allergies, Adverse Reactions, Alerts No Known Medication Allergies Immunizations Given and Recorded Vaccine Date Status Refusal Reason influenza virus vaccine, inactivated 03/01/13 Given influenza virus vaccine, inactivated1 01/12/12 Given influenza virus vaccine, inactivated2 03/30/11 Given hepatitis B adult vaccine3 01/12/12 Given hepatitis B adult vaccine4 04/13/11 Given tetanus-diphtheria toxoids (Td)5 03/30/11 Given 1Admin Note: [id number] Note: vis 09/15/20103Admin Note: VIS 03/25/20114 Admin Note: VIS 09/07/06 [id number] Note: vis 10/19/2007 Given Medications albuterol CFC [...] 8 hours, PRN as needed for pain, Malian label, # 42 tablet, 0 Refills, Maintenance, 12/09/14 11:50:41, Tablet, 1 tablet By Mouth Every 8 hours,x14 days,PRN:as neededfor pain,Instr:Malian label Start Date: 12/09/14 Stop Date: 12/23/14 Status: OrderedLacri-Lube S.O.P. - ointment 1 application, Eyes, Both, Daily at bedtime, PRN for dry eyes, # 15 Gm, 0 Refills, Maintenance, Ointment Start Date: 08/11/12 Stop Date: 09/01/12 Status: Orderedomeprazole 20 mg oral enteric coated capsule 1 capsule = 20 mg, By Mouth, Daily, mauritian instructions, # 30 capsule, 0 Refills, Maintenance, 03/21/14 15:23:52, EC Capsule, 1 capsule By Mouth Daily,Instr:mauritian instructions Start Date: 03/21/14 Status: OrderedPercocet-5/325 325 mg-5 mg oral tablet 1, tablet, By Mouth, Every 4 hours, PRN, partial fill possible, # 12 tablet, Refills 0, Tot. Refills0, Maintenance, for pain, 10/16/15 9:03:05, Print Requisition, Tablet Start Date: 10/16/15 Status: Orderedrifampin 300 mg oral capsule 2 capsule = 600 mg, By Mouth, Daily, # 60 capsule, 3 Refills, Maintenance, 09/07/21 14:53:00 EDT, [facility], home delivery- ; [address] [place] [address], [facility], , 165, cm, 08/25/21 11:04:00 EDT, Height [...] information PersonnelName: Kira Douglas NP Address: Address: [address] [place] [id number]
--- OUTSIDE RECORDS SUMMARY | 2022-01-23 01:52 | XMS_ITS | Continuity of Care Document ---
:1985 Author Organization [facility] enter/[facility] Address Unavailable , Care Team Providers Name Role Phone Abhi MCMILLAN, Calista Mcneill Primary Care Physician Encounter [facility] [id number] Date(s): 03/13/21 - 04/12/21 [facility] Attending Physician: Tima Gupta Admitting Physician: Tima Gupta Referring Physician: Tima Gupta Allergies, Adverse Reactions, Alerts No Known Medication Allergies Immunizations Given and Recorded Vaccine Date Status Refusal Reason influenza virus vaccine, inactivated 03/01/13 Given influenza virus vaccine, inactivated1 01/12/12 Given influenza virus vaccine, inactivated2 03/30/11 Given hepatitis B adult vaccine3 01/12/12 Given hepatitis B adult vaccine4 04/13/11 Given tetanus-diphtheria toxoids (Td)5 03/30/11 Given 1Admin Note: [id number] Note: vis 09/15/20103Admin Note: VIS 03/25/20114 Admin Note: VIS 09/07/06 [id number] Note: vis 10/19/2007 Given Medications albuterol CFC free 90 mcg/inh inhalation aerosol 2 puffs, Inhalation, 4 times a day, PRN for wheezing, # 18 Gm, 0 Refills, Maintenance, 11/29/13 17:17:53, Aerosol, 2 puffs Inhalation 4 times a day,PRN:for wheezing Start Date: 11/29/13 Status: Orderedibuprofen 600 mg oral tablet 1 tablet = 600 mg, By Mouth, Every 8 hours, PRN as needed for pain, Polish label, # 42 tablet, 0 Refills, Maintenance, 12/09/14 11:50:41, Tablet, 1 tablet By Mouth Every 8 hours,x14 days,PRN:as neededfor pain,Instr:Polish label Start Date: 12/09/14 Stop Date: 12/23/14 Status: Orderedomeprazole 20 mg oral enteric coated capsule 1 capsule = 20 mg, By Mouth, Daily, french instructions, # 30 capsule, 0 Refills, Maintenance, 03/21/14 15:23:52, EC Capsule, 1 capsule By Mouth Daily,Instr:french instructions Start Date: 03/21/14 Status: Ordered Problem List Condition Effective Dates Status Health Status Informant Tinea pedis(Confirmed) Active Vital Signs Most recent to oldest [Reference Range]: 1 Height 153 cm (12/09/14 11:30 AM) Weight 69 kg (12/09/14 11:30 AM) Pulse Rate [55-90 bpm] 69 bpm (12/09/14 11:30 AM) Body Mass Index [18.50-24.99] 29.48 *H* (12/09/14 11:30 AM) Blood Pressure [90-138/55-84 mm Hg] 118/72 mm Hg (12/09/14 11:30 AM) Temperature [96.8-100.4 DegF] 98.3 DegF (12/09/14 11:30 AM) Temperature Route Oral (12/09/14 11:30 AM) Weight Obtained Via Standing scale (12/09/14 11:30 AM) Social History Social History Type Response Smoking Status Never smoker entered on: 06/14/13 Sex
--- OUTSIDE RECORDS SUMMARY | 2022-01-23 01:53 | XMS_ITS | Continuity of Care Document ---
:1985 Author Organization [facility] Address [address] [place] [address]- Care Team Providers Name Role Phone Kira Douglas NP Primary Care Physician Encounter [facility] Date(s): 09/07/21 - 10/07/21 [facility] [address] [id number] Allergies, Adverse Reactions, Alerts No Known Medication Allergies Immunizations Given and Recorded Vaccine Date Status Refusal Reason influenza virus vaccine, inactivated 03/01/13 Given influenza virus vaccine, inactivated1 01/12/12 Given influenza virus vaccine, inactivated2 03/30/11 Given hepatitis B adult vaccine3 01/12/12 Given hepatitis B adult vaccine4 04/13/11 Given tetanus-diphtheria toxoids (Td)5 03/30/11 Given 1Admin Note: [id number] Note: vis 09/15/20103Admin Note: VIS 03/25/20114 Admin Note: VIS 09/07/06 [id number] Note: vis 10/19/2007 Given Medications albuterol CFC [...] 8 hours, PRN as needed for pain, Afghan label, # 42 tablet, 0 Refills, Maintenance, 12/09/14 11:50:41, Tablet, 1 tablet By Mouth Every 8 hours,x14 days,PRN:as neededfor pain,Instr:Afghan label Start Date: 12/09/14 Stop Date: 12/23/14 Status: OrderedLacri-Lube S.O.P. - ointment 1 application, Eyes, Both, Daily at bedtime, PRN for dry eyes, # 15 Gm, 0 Refills, Maintenance, Ointment Start Date: 08/11/12 Stop Date: 09/01/12 Status: Orderedomeprazole 20 mg oral enteric coated capsule 1 capsule = 20 mg, By Mouth, Daily, sinhala instructions, # 30 capsule, 0 Refills, Maintenance, 03/21/14 15:23:52, EC Capsule, 1 capsule By Mouth Daily,Instr:sinhala instructions Start Date: 03/21/14 Status: OrderedPercocet-5/325 325 mg-5 mg oral tablet 1, tablet, By Mouth, Every 4 hours, PRN, partial fill possible, # 12 tablet, Refills 0, Tot. Refills0, Maintenance, for pain, 10/16/15 9:03:05, Print Requisition, Tablet Start Date: 10/16/15 Status: Orderedrifampin 300 mg oral capsule 2 capsule = 600 mg, By Mouth, Daily, # 60 capsule, 3 Refills, Maintenance, 09/07/21 14:53:00 EDT, [facility], home delivery- ; [address] [place] [address], [facility], , 165, cm, 08/25/21 11:04:00 EDT, Height Start Date: 09/07/21 Stop Date: 01/05/22 Status: OrderedZofran ODT 4 mg oral tablet, disintegrating 1 tablet = 4 mg, By Mouth, 3 times a day, # 8 tablet, 0 Refills, Maintenance, 10/16/15 9:03:17 Start Date: 10/16/15 Status: Ordered Problem List Condition Effective Dates Status Health Status Informant Tinea pedis(Confirmed) Active Social History Social History Type Response Smoking Status Never smoker entered on: 06/14/13 Sex
--- OUTSIDE RECORDS SUMMARY | 2022-01-23 01:53 | XMS_ITS | Continuity of Care Document ---
:1985 Author Organization [facility] Address [address] [place] [address]- Care Team Providers Name Role Phone Kira Douglas NP Primary Care Physician Encounter [facility] Date(s): 08/25/21 - 09/24/21 [facility] [address] [address] Attending Physician: Tima Gupta Admitting Physician: Tima Gupta Referring Physician: AdmtrTima Allergies, Adverse Reactions, Alerts No Known Medication Allergies Immunizations Given and Recorded Vaccine Date Status Refusal Reason influenza virus vaccine, inactivated 03/01/13 Given influenza virus vaccine, inactivated1 01/12/12 Given influenza virus vaccine, inactivated2 03/30/11 Given hepatitis B adult vaccine3 01/12/12 Given hepatitis B adult vaccine4 04/13/11 Given tetanus-diphtheria toxoids (Td)5 03/30/11 Given 1Admin Note: [id number] Note: vis 09/15/20103Admin Note: VIS Admin Note: VIS 09/07/06 [id number] Note: vis 10/19/2007 Given Medications albuterol CFC [...] 8 hours, PRN as needed for pain, Kazakh label, # 42 tablet, 0 Refills, Maintenance, 12/09/14 11:50:41, Tablet, 1 tablet By Mouth Every 8 hours,x14 days,PRN:as neededfor pain,Instr:Kazakh label Start Date: 12/09/14 Stop Date: 12/23/14 Status: OrderedLacri-Lube S.O.P. - ointment 1 application, Eyes, Both, Daily at bedtime, PRN for dry eyes, # 15 Gm, 0 Refills, Maintenance, Ointment Start Date: 08/11/12 Stop Date: 09/01/12 Status: Orderedomeprazole 20 mg oral enteric coated capsule 1 capsule = 20 mg, By Mouth, Daily, wallisian instructions, # 30 capsule, 0 Refills, Maintenance, 03/21/14 15:23:52, EC Capsule, 1 capsule By Mouth Daily,Instr:wallisian instructions Start Date: 03/21/14 Status: OrderedPercocet-5/325 325 mg-5 mg oral tablet 1, tablet, By Mouth, Every 4 hours, PRN, partial fill possible, # 12 tablet, Refills 0, Tot. Refills0, Maintenance, for pain, 10/16/15 9:03:05, Print Requisition, Tablet Start Date: 10/16/15 Status: Orderedrifampin 300 mg oral capsule 2 capsule = 600 mg, By Mouth, Daily, # 60 capsule, 3 Refills, Maintenance, 09/07/21 14:53:00 EDT, [facility], home delivery- ; [address] [place] [address], , 165, cm, 08/25/21 11:04:00 EDT, Height [...]
--- OUTSIDE RECORDS SUMMARY | 2022-01-23 01:53 | XMS_ITS | Continuity of Care Document ---
:1985 Author Organization [facility] Address [address] [place] [address]- Care Team Providers Name Role Phone Stella MCMILLAN, Kira Primary Care Physician [place] [facility] [place] 10/[place]/21 - 11/29/21 [facility] [address] [id number] Allergies, Adverse Reactions, Alerts No Known Medication Allergies Immunizations Given and Recorded Vaccine Date Status Refusal Reason influenza virus vaccine, inactivated 03/01/13 Given influenza virus vaccine, inactivated1 01/12/12 Given influenza virus vaccine, inactivated2 03/30/11 Given hepatitis B adult vaccine3 01/12/12 Given hepatitis B adult vaccine4 04/13/11 Given tetanus-diphtheria toxoids (Td)5 03/30/11 Given 1Admin Note: [id number] Note: vis 09/15/20103Admin Note: VIS 03/25/20114 Admin Note: VIS 09/07/06 [id number] Note: vis 10/19/2007 Given Medications albuterol CFC [...] 8 hours, PRN as needed for pain, Botswanan label, # 42 tablet, 0 Refills, Maintenance, 12/09/14 11:50:41, Tablet, 1 tablet By Mouth Every 8 hours,x14 days,PRN:as neededfor pain,Instr:Botswanan label Start Date: 12/09/14 Stop Date: 12/23/14 Status: OrderedLacri-Lube S.O.P. - ointment 1 application, Eyes, Both, Daily at bedtime, PRN for dry eyes, # 15 Gm, 0 Refills, Maintenance, Ointment Start Date: 08/11/12 Stop Date: 09/01/12 Status: Orderedomeprazole 20 mg oral enteric coated capsule 1 capsule = 20 mg, By Mouth, Daily, taiwanese instructions, # 30 capsule, 0 Refills, Maintenance, 03/21/14 15:23:52, EC Capsule, 1 capsule By Mouth Daily,Instr:taiwanese instructions Start Date: 03/21/14 Status: OrderedPercocet-5/325 325 mg-5 mg oral tablet 1, tablet, By Mouth, Every 4 hours, PRN, partial fill possible, # 12 tablet, Refills 0, Tot. Refills0, Maintenance, for pain, 10/16/15 9:03:05, Print Requisition, Tablet Start Date: 10/16/15 Status: Orderedrifampin 300 mg oral capsule 2 capsule = 600 mg, By Mouth, Daily, # 60 capsule, 3 Refills, Maintenance, 09/07/21 14:53:00 EDT, [facility], home delivery- ; [address] [place] [address], [facility], , 165, cm, 08/25/21 11:04:00 EDT, [...] information PersonnelName: Kira Douglas NP Address: Address: [address] [place] [id number]
--- NOTE | 2022-01-23 03:47 | ED.GENADULT ---
HPI - General Adult General Chief complaint: General Medical Stated complaint: Chest discomfort Time Seen by Provider: 01/23/22 03:32 Source: patient Mode of arrival: ambulatory Limitations: no limitations History of Present Illness HPI narrative: 36-year-old male who presents emergency department for evaluation of left-sided chest pain times 2-3 months. Patient states that he has a constant burning sensation in his left chest and in the center of his chest. He states that the pain is 10/10 at its worst. He feels the pain in his neck and his throat as well. Pain does not change with hunger or with eating. The patient was seen in the emergency department by me on 01/16/2022 for similar complaints. The patient's laboratory evaluation was unremarkable and his EKG was unremarkable. I treated the patient for gastritis and esophagitis with omeprazole 40 mg once a day and Gaviscon extra-strength 10 mL 4 times a day. He states that despite taking this medication he is not feeling better, therefore came back to the emergency department for evaluation. Related Data Previous Rx's Medication Instructions Recorded aluminum hydrox-magnesium carb 254 10 ml PO QID PRN dyspepsia #355 mL 01/16/22 mg-237.5 mg/5 mL oral suspension (Gaviscon Extra Strength) omeprazole 20 mg capsule,delayed 40 mg PO DAILY 30 days #60 caps 01/16/22 release Allergies Allergy/AdvReac Type Severity Reaction Status Date / Time No Known Allergies Allergy Verified 01/23/22 00:54 Review of Systems Review of Systems: Yes all other systems are reviewed and are negative [facility] Past Medical History [facility] Narrative: Past medical history: None. Past surgical history: None. Social history: He denies tobacco, alcohol and drug use. Social History Social History Advance Directives: No Advance Directives Information Provided: Yes Physical Exam ED Vital Signs: Vital Signs - 24 hr 01/23/22 00:40 Temperature 97.9 F Pulse Rate 69 Respiratory Rate 18 Blood Pressure 126/79 Pulse Oximetry 100 Oxygen Delivery Method Room Air BMI result Body Mass Index 30.4 Const General: cooperative and no acute distress Orientation/consciousness: oriented to person and oriented to place Limitations: no limitations HENMT Head: Yes normal to inspection, Yes normocephalic and Yes atraumatic Ears: external ears normal General nose exam: Normal external nose present Face and sinus: Yes normal facial exam Mouth: Normal oral and palatal mucosa present Throat: Yes posterior oropharynx normal Eyes General: appearance normal, both eyes and all related structures Pupils: Equal, round and reactive pupils present Neck Neck: Yes normal visual inspection, Yes no lymphadenopathy, Yes trachea midline and Yes supple Chest Chest palpation & inspection: normal inspection of the chest and normal palpation of entire chest wall Resp Effort & Inspection: normal respiratory effort and able to speak in complete sentences Auscultation: clear to auscultation bilaterally Cardio Rate: regular rate Rhythm: regular rhythm Heart sounds: S1 normal heart sound present, S2 normal heart sound present and no murmurs GI Inspection: Yes normal to inspection Palpation (GI): Soft to palpation, nontender and no guarding Auscultation: normal bowel sounds General: Yes no CVA tenderness Back/Spine/Pelvis Back: no CVA tenderness Skin General skin exam: no rashes or lesions noted Neuro General: oriented to person and oriented to place Cranial nerves: Yes CN's II-XII intact bilaterally and Yes Equal, round and reactive pupils present Cognition (Neuro): normal cognition Motor exam (neuro): 5/5 motor strength present throughout Extrem General: Yes normal to inspection Psych Appearance: grossly normal Speech and movement: Normal speech and movement present Affect: normal affect Attitude: cooperative Thought process: Normal thought process present Thought content: Normal thought content present Course Course Course Narrative: 36-year-old male who presents emergency department for evaluation neck, sternal and left-sided chest burning sensation times 2-3 months. Patient was seen in the emergency department on 01/16/2022 by me and had a negative workup. Patient was treated for possible esophagitis and gastritis causes pain with Prilosec 40 mg once a day and Gaviscon extra-strength 10 mL 4 times a day. He states that despite taking this medication is not feeling better therefore came to the emergency department for re-evaluation. Patient's vital signs were normal. Examination was unremarkable. At this time I do not think that repeating his blood work would be helpful but I did order a chest x-ray two view. Patient was treated with Maalox 30 cc, viscous lidocaine 10 cc and 10 cc orally to see if this improves his discomfort. 0505: Patient did get improvement with the above medications. His chest x-ray was unremarkable. At this time I do believe that his pain is caused by gastritis esophagitis encouraged him to continue taking the Prilosec and the Gaviscon. Patient will need to follow-up with his PCP for re-evaluation and possible referral to a room service runner. Medications Administered Discontinued Medications Generic Name Dose Route Start Last Admin Trade Name Freq PRN Reason Stop Dose Admin Al Hydroxide/Mg Hydroxide 30 ml 01/23/22 03:46 01/23/22 03:56 Magnesium Hydrox/Alum Hydrox 30 Ml Oral.Susp PO 01/23/22 03:47 30 ml ONCE STA Administration Belladonna Alkaloids/Phenobarbital 10 ml 01/23/22 03:46 01/23/22 03:59 Phenobarb/Hyoscy/Atropine/Scop 10 Ml Elixir PO 01/23/22 03:47 10 ml ONCE ONE Administration Lidocaine HCl 10 ml 01/23/22 03:46 01/23/22 03:59 Lidocaine Hcl Viscous 2 % 15 Ml Solution PO 01/23/22 03:47 10 ml ONCE ONE Administration Discharge Plan Discharge Clinical Impression: Gastritis, Esophagitis Patient Disposition: Home, Self-Care Instructions: Esophagitis (ED) Additional Instructions: Continue taking your Prilosec and extra-strength Gaviscon as prescribed that your previous ED visit. Follow-up with your doctor in 2 days to discuss further treatment and to discuss referral to a room service runner. Please return to the emergency department if your symptoms get worse or if you develop any symptoms that are concerning to you. Prescriptions: No Action omeprazole 20 mg capsule,delayed release(DR/EC) 40 mg PO DAILY 30 Days Qty: 60 0RF Gaviscon Extra Strength 254-237.5 mg/5 mL suspension 10 ml PO QID PRN (Reason: dyspepsia) Qty: 355 0RF Print Language: Mongolian
[2022-01-23] MEDS: Magnesium Hydrox/Alum Hydrox 30 ML ORAL.SUSP PO (03:56)
[2022-01-23] MEDS: PHENobarb/Hyoscy/Atropine/Scop 10 ML ELIXIR PO (03:59)
[2022-01-23] MEDS: Lidocaine HCl Viscous 2 % 15 ML SOLUTION 10 ML PO (03:59)
== END 2022-01-23 05:17 | disposition home or self-care (01) ==
PROVIDERS: Emergency Provider Emergency Medicine Emergency Medical Services
DX: K29.70 Gastritis, unspecified, without bleeding (principal); K20.90 Esophagitis, unspecified without bleeding
CPT/HCPCS: 71046; 99283

== ENCOUNTER 2022-02-04 15:58 | Outpatient (REF) | payer MEDICAID, OTHER, SELFPAY ==
--- NOTE | ~2022-02-04 | XR_ITS ---
EXAMINATION: XR CHEST CLINICAL INFORMATION: Burning chest pain COMPARISON: Chest radiographs 01/23/2022, 05/11/2021 TECHNIQUE: 2 views of the chest were obtained. FINDINGS: Lungs clear. No pneumothorax, pleural reaction, infiltrate, or effusion. Heart size normal. The hilar and mediastinal contours and visualized bony structures are unremarkable. XR/XR chest 2V IMPRESSION: Unremarkable examination.
== END 2022-02-04 15:59 | disposition home or self-care (01) ==
LOC: HO.XRAY 15:58
PROVIDERS: PCP Registered Nurse; Visit Provider Registered Nurse
DX: R07.89 Other chest pain (principal)
CPT/HCPCS: 71046

== ENCOUNTER 2022-02-11 16:15 | Outpatient (REF) | payer MEDICAID, OTHER, SELFPAY | END 2022-02-11 16:16 | disposition home or self-care (01) | LOC: HO.RESP 16:15 | PROVIDERS: PCP Registered Nurse; Visit Provider Registered Nurse | DX: R06.02 Shortness of breath (principal) | CPT/HCPCS: 94060; 94727; 94729 ==

== ENCOUNTER 2022-02-24 23:25 | Emergency (ER) | payer MEDICAID, OTHER, SELFPAY ==
--- NOTE | 2022-02-24 | ECG_ITS ---
Test Reason : CHEST PAIN Blood Pressure : / mmHG Vent. Rate : 059 BPM Atrial Rate : 059 BPM P-R Int : 154 ms QRS Dur : 092 ms QT Int : 416 ms P-R-T Axes : 053 056 052 degrees QTc Int : 411 ms Sinus bradycardia Otherwise normal ECG When compared with ECG of 16-JAN-2022 20:01, No significant change was found Referred By: Generic ED Physician Electronically Signed By:BRAD LION
--- NOTE | ~2022-02-24 | XR_ITS ---
EXAMINATION: XR CHEST CLINICAL INFORMATION: Chest pain COMPARISON: 02/04/2022 TECHNIQUE: Frontal view of the chest was obtained. FINDINGS: No significant abnormality is noted involving the heart, lungs, mediastinum, bony thorax or soft tissues. XR/XR chest 1V IMPRESSION: Unremarkable examination.
[2022-02-24 23:35] VITALS: BP 126/80; PULSE 65; RESP 20; TEMP 36.6; O2SAT 99; BMI 25.0
[2022-02-25 00:12] LABS: Basophils Percent Auto 0.7 % (0-2); Eosinophils Absolute Auto 0.1 X10*3/uL (0.0-0.4); Eosinophils Percent Auto 1.9 % (0-4); Hematocrit 42.1 % (42.0-52.0); Hemoglobin 15.1 g/dl (14.0-18.0); Imm Gran Abs Auto 0.01 X10*3/uL (0.00-0.03); Imm Gran Pct Auto 0.2 % (0.0-0.4); Lymphocytes Percent Auto 48.3 % (20-40); MANUAL DIFF FLAG NO; Mean Corpuscular HGB Conc 35.9 g/dl (31.0-36.0); Mean Corpuscular Hemoglobin 32.5 pg (27.0-33.0); Mean Corpuscular Volume 90.5 fL (80.0-98.0); Mean Platelet Volume 9.4 fL (9.4-12.4); Monocytes Absolute Auto 0.3 X10*3/uL (0.1-1.2); Monocytes Percent Auto 6.4 % (2-11); Neutrophils Absolute Auto 1.8 x10*3/uL (2.0-8.3); Neutrophils Percent Auto 42.5 % (45-73); Platelet Count 188 X10*3/uL (160-400); Red Blood Count 4.65 X10*6/uL (4.60-5.80); Red Cell Distribution Width 11.5 % (11.0-16.0); White Blood Count 4.2 X10*3/uL (4.8-10.8)
[2022-02-25 00:26] LABS: Anion Gap 14 (12-20); Blood Urea Nitrogen 7 mg/dL (9-16); Calcium 9.4 mg/dL (8.4-10.2); Carbon Dioxide 26 mmol/L (22-29); Chloride 101 mmol/L (96-108); Creatinine Clr Calc Pharmacy 105.5; Estimated Glomerular Filt Rate > 60; Glucose Random 108 mg/dL (60-115); Potassium 4.3 mmol/L (3.3-5.1); Sodium 137 mmol/L (135-145)
[2022-02-25 00:34] LABS: Troponin-I High Sensitivity < 3.5 ng/L (<3.5-35.0)
[2022-02-25 02:26] VITALS: BP 113/78; PULSE 65; RESP 11; TEMP 36.7; O2SAT 98
--- NOTE | 2022-02-25 02:26 | MHC.EDTECH ---
pt is resting on the stretcher vitals were taken, i ask how he was feeling he replied not good i have pain , i said ok i will let the nurse know
--- NOTE | 2022-02-25 03:42 | ED.CHESTPAIN ---
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 No shortness of breath, symptoms is not exertional in nature. No lower extremity swelling or pain. No nausea, no vomiting, no change in the bowel movement, no recent loss of weight. Related Data Previous Rx's Medication Instructions Recorded aluminum hydrox-magnesium carb 254 10 ml PO QID PRN dyspepsia #355 mL 01/16/22 mg-237.5 mg/5 mL oral suspension (Gaviscon Extra Strength) omeprazole 20 mg capsule,delayed 40 mg PO DAILY 30 days #60 caps 01/16/22 release omeprazole magnesium 20 mg 20 mg PO BID #30 tabs 02/25/22 tablet,delayed release (Prilosec OTC) Allergies Allergy/AdvReac Type Severity Reaction Status Date / Time No Known Allergies Allergy Verified 01/23/22 00:54 Review of Systems Review of Systems: all other systems are reviewed and are negative Constitutional: Reports as per HPI and Reports no additional constitutional complaints Eyes: Reports as per HPI and Reports no additional eye complaints Reports system reviewed and no additional complaints, except as documented Cardiovascular: Reports as per HPI and Reports no additional cardiovascular complaints Respiratory: Reports as per HPI and Reports no additional respiratory complaints Gastrointestinal: Reports as per HPI and Reports no additional gastrointestinal complaints Genitourinary: Reports no additional female genitourinary complaints Musculoskeletal: Reports no additional musculoskeletal complaints Skin/Breast: Reports system reviewed and no additional complaints, except as docu Psychiatric: Reports no additional psychiatric complaints Endocrine: Reports no additional endocrine complaints Hematologic/Lymphatic: Reports no additional hematologic/lymphatic complaints Allergic/Immunologic: Reports no additional allergic/immunologic complaints Reports system reviewed and no additional complaints, except as documented and Reports Abnormal speech present [facility] Social History Social History Advance Directives: No Physical Exam Vital Signs: Vital Signs: Last Vital Signs Temp 98.1 F 02/25/22 02:26 Pulse 65 02/25/22 02:26 Resp 11 L 02/25/22 02:26 BP 113/78 02/25/22 02:26 Pulse Ox 98 02/25/22 02:26 O2 Del Method 02/25/22 02:26 BMI result Body Mass Index 25.0 vital signs have been reviewed as appeared to be correct. Blood pressure normal. Heart rate normal. Respiration rate normal. Temperature normal. Oxygen saturation normal. Appearance: Alert. Oriented X3. No acute distress. Head: Normal external exam. Normocephalic. Atraumatic. No Collazo signs noted. No raccoon eyes noted Eyes: PERRLA. EOMI. Conjunctiva and sclera normal. Eyelids normal. ENT: TM's Normal. Pharynx normal. Uvula midline. Moist mucous membranes. No trismus noted. No drooling noted. No muffled voice noted. Neck: Normal inspection. Neck supple. FROM. No adenopathy. Thyroid Normal. No meningeal signs. No neck mass noted. CVS: Normal heart rate and rhythm. Heart sound normal. No murmurs noted. Pulses normal throughout. Respiratory: No respiratory distress. Painless inspiration. Breath sounds normal. No wheezes/rales/rhonchi noted. Chest nontender. No accessory muscle usage noted or decreased air movement noted. Abdomen: Soft, epigastric tenderness, no rebound tenderness, no guarding. Bowel sounds normal in all 4 quadrants. No distention noted. No organomegaly noted. No visible injury noted. Back: No CVA tenderness. Full range of motion noted. Skin: Skin warm and dry. Normal skin color. Normal skin turgor. No rashes/lesions/lacerations noted. Extremities: No lower extremity edema. Extremities exhibit normal range of motion. Extremities nontender. Neuro: Oriented X 3. Cranial nerve exam: II-XII are grossly intact No motor deficit. No sensory deficit. Reflexes normal. Course Course Course Narrative: 37-year-old male came in for epigastric burning sensation with radiation to the chest history of GERD, patient's exam and history is consistent with gastritis/GERD. Will start the patient on PPI and will have the patient follow-up with PCP. Unremarkable cardiac workup with HEART score of 0. Medications Administered Discontinued Medications Generic Name Dose Route Start Last Admin Trade Name Freq PRN Reason Stop Dose Admin Al Hydroxide/Mg Hydroxide 30 ml 02/25/22 03:42 02/25/22 04:01 Magnesium Hydrox/Alum Hydrox 30 Ml Oral.Susp PO 02/25/22 03:43 30 ml ONCE ONE Administration Omeprazole 40 mg 02/25/22 03:42 02/25/22 04:01 Omeprazole 40 Mg Capsule. PO 02/25/22 03:43 40 mg ONCE ONE Administration Medical Decision Making Differential Diagnosis Differential Diagnoses: The differential diagnosis associated with the presentation includes ( Gastritis, GERD, ACS, pneumonia , pneumothorax.) Lab Data MDM Lab Attestation statement: I reviewed the patient's lab results. Result Diagrams: 02/25/22 00:06 02/25/22 00:06 Labs: Lab Results 02/25/22 02/25/22 02/25/22 Range/Units 00:06 00:06 00:06 WBC 4.2 L (4.8-10.8) X10*3/uL RBC 4.65 (4.60-5.80) X10*6/uL Hgb 15.1 (14.0-18.0) g/dl Hct 42.1 (42.0-52.0) % MCV 90.5 (80.0-98.0) fL MCH 32.5 (27.0-33.0) pg MCHC 35.9 (31.0-36.0) g/dl RDW 11.5 (11.0-16.0) % Plt Count 188 (160-400) X10*3/uL MPV 9.4 (9.4-12.4) fL Immature Gran % (Auto) 0.2 (0.0-0.4) % Neut % (Auto) 42.5 L (45-73) % Lymph % (Auto) 48.3 H (20-40) % [place] % (Auto) 6.4 (2-11) % Eos % (Auto) 1.9 (0-4) % Baso % (Auto) 0.7 (0-2) % Lymph # (Auto) 2.0 (1.2-4.9) X10*3/uL [place] # (Auto) 0.3 (0.1-1.2) X10*3/uL Eos # (Auto) 0.1 (0.0-0.4) X10*3/uL Baso # (Auto) 0.0 (0.0-0.2) X10*3/uL Abs Immat Gran (auto) 0.01 (0.00-0.03) X10*3/uL Absolute Neuts (auto) 1.8 L (2.0-8.3) x10*3/uL Absolute Nucleated RBC 0.000 (0.0-0.012) X10*3/uL Nucleated RBC % (auto) 0.0 (0.0-0.2) /100WBC Sodium 137 (135-145) mmol/L Potassium 4.3 (3.3-5.1) mmol/L Chloride 101 (96-108) mmol/L Carbon Dioxide 26 (22-29) mmol/L Anion Gap 14 (12-20) BUN 7 L (9-16) mg/dL Creatinine 0.81 (0.5-1.4) mg/dL Estim Creat Clear Calc 105.5 Estimated GFR > 60 Random Glucose 108 (60-115) mg/dL Calcium 9.4 (8.4-10.2) mg/dL Total Bilirubin 0.5 (0.0-1.0) mg/dL Direct Bilirubin 0.2 (0.0-0.5) mg/dL AST 19 (5-37) U/L ALT 19 (0-40) U/L Alkaline Phosphatase 106 (39-117) U/L Troponin I High Sens < 3.5 (<3.5-35.0) ng/L Total Protein 7.3 (6.5-8.0) g/dL Albumin 4.5 (3.5-5.0) g/dL Lipase 27 (8-78) U/L Independent Interpretation I performed an independent interpretation of an: EKG ( normal sinus rhythm at 60 beat per minutes, normal intervals, no ST-T changes, no change from old EKG.) and Plain X-Ray ( Chest: No acute pathology.) Radiology Impression Discussion of test interpretation with radiology: I have reviewed the radiologist's reading. Discharge Plan Discharge Clinical Impression: Chest pain due to GERD Patient Disposition: Home, Self-Care Instructions: Diet for Stomach Ulcers and Gastritis (ED) Prescriptions: New omeprazole magnesium [Prilosec OTC] 20 mg tablet,delayed release (DR/EC) 20 mg PO BID Qty: 30 0RF No Action omeprazole 20 mg capsule,delayed release(DR/EC) 40 mg PO DAILY 30 Days Qty: 60 0RF Gaviscon Extra Strength 254-237.5 mg/5 mL suspension 10 ml PO QID PRN (Reason: dyspepsia) Qty: 355 0RF Referrals: Jerod Serra MD [Physician] -
[2022-02-25] MEDS: Omeprazole 40 MG CAPSULE.DR PO (04:01)
[2022-02-25] MEDS: Magnesium Hydrox/Alum Hydrox 30 ML ORAL.SUSP PO (04:01)
[2022-02-25 04:07] LABS: Alanine Aminotransferase 19 U/L (0-40); Albumin Level 4.5 g/dL (3.5-5.0); Alkaline Phosphatase 106 U/L (39-117); Aspartate Amino Transferase 19 U/L (5-37); Bilirubin Direct 0.2 mg/dL (0.0-0.5); Bilirubin Total 0.5 mg/dL (0.0-1.0); Lipase 27 U/L (8-78); Total Protein 7.3 g/dL (6.5-8.0)
== END 2022-02-25 04:22 | disposition home or self-care (01) ==
PROVIDERS: Emergency Provider Emergency Medicine
DX: R07.89 Other chest pain (principal); K21.9 Gastro-esophageal reflux disease without esophagitis; Z79.899 Other long term (current) drug therapy
CPT/HCPCS: 36415; 71045; 71250; 80048; 80076; 83690; 84484; 85025; 93005; 99283; 99284

== ENCOUNTER 2022-02-25 14:24 | Outpatient (REF) | payer MEDICAID, OTHER, SELFPAY ==
--- NOTE | ~2022-02-25 | CT_ITS ---
EXAMINATION: CT CHEST WITHOUT CONTRAST CLINICAL INFORMATION: Chest pain COMPARISON: Chest x-ray 02/25/2022 TECHNIQUE: Multidetector volumetric CT imaging of the chest was done. Axial MIP volume rendering provided. Sagittal and coronal reformatted images were obtained. This CT examination was performed using dose optimization techniques as appropriate, variously including the following: *Automated exposure control *Adjustment of mA and/or kV according to patient size (this includes techniques or standardized protocols for targeted exams where dose is matched to indication/reason for exam; i.e. extremities or head) *Use of iterative reconstruction technique DLP: 120 mGy-cm FINDINGS: RETURNING OFFICER: Symmetrically expanded lungs LUNGS: 3 mm calcified right upper lobe granuloma image [id number]. There are a few areas of perifissural thickening likely representing intrapulmonary lymph nodes. 2-3 mm right lower lobe pulmonary nodule image [id number]. MEDIASTINUM: The mediastinum is normal. CORONARY ARTERY CALCIFICATION: None visualized on this study. PLEURA: There is no pleural effusion. No pleural mass or thickening. AXILLA: No lymphadenopathy. UPPER ABDOMEN: Unremarkable. OSSEOUS STRUCTURES: No rib fractures. CT/CT chest wo IV con IMPRESSION: 2 to 3 mm right lower lobe pulmonary micronodule. According to the UPDATED 2017 Fleischner Society recommendations, the advised follow-up imaging for solid nodules < 6 mm is: LOW RISK PATIENT: No routine follow-up. HIGH RISK PATIENT: Optional CT at 12 months. Fleischner guidelines were followed.
== END 2022-02-25 14:25 | disposition home or self-care (01) ==
LOC: HO.CT 14:24
PROVIDERS: PCP Registered Nurse; Visit Provider Internal Medicine
DX: R07.9 Chest pain, unspecified (principal); R63.4 Abnormal weight loss
CPT/HCPCS: 71250

== ENCOUNTER 2022-03-01 11:13 | Outpatient (REF) | payer MEDICAID, OTHER, SELFPAY ==
--- NOTE | ~2022-03-01 | FL_ITS ---
EXAMINATION: FL BARIUM SWALLOW CLINICAL INFORMATION: Dysphagia. COMPARISON: None. TECHNIQUE: Barium swallow examination is performed using fluoroscopic evaluation in addition to multiple fluoroscopic spot views. The patient is imaged both upright and prone and using both thick and thin sulfate along with effervescent granules. Fluoroscopy time: 1.6 minutes. DAP: 5.264 Gy-cm2. Images: 47. FINDINGS: Following oral administration of thick, thin barium and barium-coated turkey, there is normal propagation of bolus from the oral cavity through the pharynx and esophagus and into the stomach without any evidence of obstruction, narrowing or stricture. There is no laryngeal penetration or aspiration. No intraluminal filling defects seen in the pharynx. There is mild retention of barium in the piriform sinuses. On placing patient prone lying and oral administration thin barium, there is good distention of the entire esophagus without any intraluminal filling defect. No gastroesophageal reflux or hiatal hernia seen. FL/FL barium swallow IMPRESSION: Unremarkable barium swallow exam.
== END 2022-03-01 11:14 | disposition home or self-care (01) ==
LOC: HO.XRAY 11:13
PROVIDERS: PCP Internal Medicine; Visit Provider Internal Medicine
DX: R13.10 Dysphagia, unspecified (principal)
CPT/HCPCS: 74220

== ENCOUNTER → 2022-03-17 13:40 | Outpatient (BNVA) | payer MEDICAID, OTHER, SELFPAY | PROVIDERS: PCP Internal Medicine; Visit Provider Internal Medicine | DX: K21.9 Gastro-esophageal reflux disease without esophagitis (principal) | CPT/HCPCS: 99202 ==

== ENCOUNTER 2022-03-22 11:53 | Day surgery (SDC) | payer MEDICAID, OTHER, SELFPAY ==
--- NOTE | 2022-03-19 13:48 | HO.ANESPROP2 ---
Documented by User: Francy Coats NP 03/19/22 13:51 PMFSH Active Problems Active Problems: All Active Problems (Updated 03/17/22 @ 16:31 by Felicia Vega MD) GERD (gastroesophageal reflux disease) (Acute) Social History Social History Alcohol intake: never Patient Tobacco Use Status: Never used Tobacco Use of substances other than those prescribed or required for medical reasons: No Advance Directives: No Advance Directives Information Provided: Yes Meds Allergies Allergy/AdvReac Type Severity Reaction Status Date / Time No Known Allergies Allergy Verified 03/17/22 13:58 Exam Exam Date and Time: March 19, 2022 1348 Pertinent Lab Results Pertinent Lab Results: Laboratory Tests 02/25/22 02/25/22 00:06 00:06 WBC 4.2 L Hgb 15.1 Hct 42.1 Plt Count 188 Sodium 137 Potassium 4.3 Chloride 101 Carbon Dioxide 26 BUN 7 L Creatinine 0.81 Assessment and Plan Assessment Anesthesia Assessment: Chart Reviewed Documented by User: Rosanna Rose MD 03/22/22 14:46 HPI - Anesthesia Eval Consult details Narrative: 37 yr old male for upper GI PMFSH Family History Family history of problems with anesthesia: No Surgical History History of Problems with Anesthesia: No Social History Social History Alcohol intake: never Patient Tobacco Use Status: Never used Tobacco Use of substances other than those prescribed or required for medical reasons: No Advance Directives: No Advance Directives Information Provided: Yes Meds Allergies Allergy/AdvReac Type Severity Reaction Status Date / Time No Known Allergies Allergy Verified 03/17/22 13:58 Exam Airway Mallampati Class: II TM Dist: >3cm Heart: rrr Lungs: cta Assessment and Plan Assessment Anesthesia Assessment: Anesthesia Plan Discussed Final Anesthetic Review Family History of Problems with Anesthesia: No History of Problems with Anesthesia: No NPO: Yes ASA Class: II Final Preanesthetic Review: No Changes in Pt Med Stat, Meds/Allgs Chart Reviewed, Consent Obtained/Reviewed and Anes Risks/Benef Reviewed Patient Risk: Low Procedure Risk: Low Anesthetic Plan Anesthetic Plan: MAC: Disposition: Standard PACU
[2022-03-22 13:35] VITALS: BP 110/73; PULSE 66; RESP 16; TEMP 36.8; O2SAT 99; BMI 27.7
[2022-03-22] MEDS: Lactated Ringers 1,000 ML 100 ML IVCONT (13:47)
--- NOTE | 2022-03-22 14:05 | MHC.SHP ---
Pre-Procedural Eval Section A Date of Service: 03/22/22 The patient is an INPATIENT: No Changes since office visit: Yes Patient answered all questions; No Cold of Flu in the past 2 weeks, No New Medical Problems and No Changes in Medication The History & Physical has been completed within 30 days and I have reviewed it.: Yes Section B Chief Complaint: Esophagitis,reflux disease Allergies: Allergies Allergy/AdvReac Type Severity Reaction Status Date / Time No Known Allergies Allergy Verified 03/17/22 13:58 Plan I have reviewed the history and physical and performed a pertinent physical examination on my patient. No changes have occurred unless specified. Time Spent With Patient Time: Total time managing care of this patient today ____ minutes.
--- NOTE | 2022-03-22 14:06 | P.OP_ITS ---
Operative Note Operative Note Date of Service: 03/22/22 Narrative: Pre-op diagnosis: GERD, chest and epigastric pain Post-op diagnosis:?other (GERD, inlet patch, gastritis, prominent gastric folds) Surgeon: Germán Dickinson MD Anesthesia:?MAC FLEXIBLE TRANSORAL UPPER GASTROINTESTINAL ENDOSCOPY WITH BIOPSIES Consent: Indications for the procedure and potential complications of bleeding, perforation, reaction to medications and missed diagnosis were discussed with the patient and informed consent was obtained. Instrument: Olympus GIF H 190 mid size upper endoscope Monitoring: Vital signs and clinical assessment, continuous EKG monitoring, Pulse oximetry, Carbon Dioxide monitoring and blood pressure monitoring were done throughout the procedure. Procedure: The patient was placed in the left lateral decubitis position and pre-procedure medications were administered and a bite block was placed. The endoscope was inserted into the mouth and advanced under direct vision to the third part of duodenum. A careful inspection was made as the upper endoscope was withdrawn including a retroflexed examination of the proximal stomach; Findings and interventions are described below. Findings: Larynx: Normal Esophagus: A 1.5 cms circular inlet patch in the proximal esophagus ar 16 cms - biopsied. GE junction at 38 cms. No esophagitis or Fisher's. Biopsies were obtained from proximal esophagus to check for EOE and from distal esophagus (33 cms) to check for esophagitis. Stomach: Moderate diffuse gastric erythema with prominent gastric folds. Biopsies were obtained from the gastric folds and antrum. Grade 2 flap valve on retroflexed examination of the cardia. Duodenum: Normal bulb and descending duodenum Intervention: Biopsies as noted above Impression and Post Procedure Diagnosis: Endoscopy Findings: ESOPHAGUS: A 1.5 cms circular inlet patch in the proximal esophagus ar 16 cms - biopsied. GE junction at 38 cms. No esophagitis or Fisher's. Biopsies were obtained from proximal esophagus to check for EOE and from distal esophagus (33 cms) to check for esophagitis. STOMACH: Gastritis, prominent gastric folds. Plan: Await pathology results Patient has an appointment on 04/07/22 in the [facility] with Dr Vega. Above findings were reviewed with the patient and GERD handouts were given in the discharge area Pt appears anxious and had several questions after the procedure which were answered with the help of a Sinhala tap and die maker technician.
--- NOTE | 2022-03-22 14:06 | PM.OP ---
Brief Operative Note Date of Service: 03/22/22 Pre-op diagnosis: GERD, chest and epigastric pain Post-op diagnosis: other (GERD, inlet patch, gastritis, prominent gastric folds) Procedure: FLEXIBLE TRANSORAL UPPER GASTROINTESTINAL ENDOSCOPY WITH BIOPSIES Surgeon: Germán Dickinson MD Anesthesia: MAC Was an Compliance Vice President used for this Procedure?: No Compliance Vice President: Lela Amor Estimated blood loss (mL): 0 Pathology: other (A. gastric antrum bxs, R/O H. pylori B. gastric fold bxs C. distal esophagus, bxs, R/O esophagitis D. proximal esophagus bxs, R/O EoE E. inlet patch bxs @ 16 cms) Condition: stable Disposition: PACU
[2022-03-22 15:39] VITALS: BP 98/59; PULSE 57; RESP 16; TEMP 36.9; O2SAT 99
[2022-03-22 15:54] VITALS: BP 104/69; PULSE 57; RESP 16; TEMP 36.9; O2SAT 99
[2022-03-22 16:10] VITALS: BP 103/68; PULSE 57; RESP 16; TEMP 36.9; O2SAT 100
== END 2022-03-22 16:45 | disposition home or self-care (01) ==
PROVIDERS: Visit Provider Internal Medicine Gastroenterology
PROC: 0DJ08ZZ Inspection of Upper Intestinal Tract, Via Natural or Artificial Opening Endoscopic (ICD-10-PCS; CPT 43235; principal; 2022-03-22 13:50)
DX: K21.9 Gastro-esophageal reflux disease without esophagitis (principal); K22.89 Other specified disease of esophagus; K29.60 Other gastritis without bleeding
CPT/HCPCS: 43239; 88305; 88342

== ENCOUNTER 2022-04-03 18:40 | Emergency (ER) | payer MEDICAID, OTHER, SELFPAY ==
--- NOTE | ~2022-04-03 | US_ITS ---
EXAMINATION: US ABDOMEN COMPLETE CLINICAL INFORMATION: Nausea. Upper abdominal pain. Status post endoscopy.. COMPARISON: None TECHNIQUE: Real-time imaging of the abdominal viscera. FINDINGS: PANCREAS: Obscured by bowel gas. ABDOMINAL AORTA: The proximal, mid, and distal segments are normal in caliber. INFERIOR VENA CAVA: Visualized portions are normal. LIVER: Normal. The liver is normal in size. The liver contour is normal. Parenchymal echogenicity is normal. No focal hepatic lesion. There is no intrahepatic biliary duct dilatation seen. GALLBLADDER: Normal. The gallbladder is physiologically distended without evidence of stones, sludge, polyps, wall thickening or pericholecystic fluid. COMMON BILE DUCT: Normal in caliber measuring 0.2 cm in diameter. RIGHT KIDNEY: Normal. No hydronephrosis. No renal calculi or focal parenchymal lesions. The kidney measures 10.4 cm in maximum dimension. LEFT KIDNEY: Normal. No hydronephrosis. No renal calculi or focal parenchymal lesions. The kidney measures 10.1 cm in maximum dimension. SPLEEN: Normal. The spleen measures 8.1 cm in maximum dimension. FREE FLUID: None. US/US abdomen complete IMPRESSION: Normal ultrasound of the abdomen.
[2022-04-03 19:12] VITALS: BP 106/86; PULSE 71; RESP 16; TEMP 36.3; O2SAT 98; BMI 26.4
--- NOTE | 2022-04-03 19:12 | ED_ITS ---
HPI - Nausea/Vomiting/Diarrhea General Chief complaint: Abdominal Pain <DEYVI Norton - Last Filed: 04/03/22 19:16> Stated complaint: chest/abd pain <DEYVI Norton - Last Filed: 04/03/22 19:16> Time Seen by Provider: 04/03/22 21:04 <DEYVI Norton - Last Filed: 04/03/22 19:16> Source: patient <Ranulfo Lima MD - Last Filed: 04/03/22 21:48> Mode of arrival: ambulatory <Ranulfo Lima MD - Last Filed: 04/03/22 21:48> Limitations: no limitations <Ranulfo Lima MD - Last Filed: 04/03/22 21:48> History of Present Illness HPI Narrative: 37-year-old male presents with epigastric abdominal pain. The pain is moderate to severe in nature. It is burning in sensation. The pain radiates up his esophagus. It is associated with mild nausea but no vomiting. He denies any bloody stools or melanotic stools. Patient had a recent upper endoscopy. The identified a possible H pylori infection. He was started on a medication package with antibiotics and PPI. Since he started the medication, however, his symptoms have worsened significantly. He believes they are associated with the medications themselves. He has had no fever or chills. There are no clear relieving features. It is clearly exacerbated when he takes the medications. He would like to stop taking medications at this time. <Ranulfo Lima MD - Last Filed: 04/03/22 21:48> Related Data Home medications: Previous Rx's Medication Instructions Recorded aluminum hydrox-magnesium carb 254 10 ml PO QID PRN dyspepsia #355 mL 01/16/22 mg-237.5 mg/5 mL oral suspension (Gaviscon Extra Strength) omeprazole 20 mg capsule,delayed 40 mg PO DAILY 30 days #60 caps 01/16/22 release omeprazole magnesium 20 mg 20 mg PO BID #30 tabs 02/25/22 tablet,delayed release (Prilosec OTC) omeprazole 40 mg capsule,delayed 40 mg PO BID 4 weeks #56 caps 03/17/22 release sucralfate 1 gram tablet 1 g PO QIDACHS 14 days #60 tabs 03/17/22 Magic Mouthwash 5 ml PO TID 10 days #240 mL 03/23/22 Diphen/Lido/Antacid 1:1:1 240 mL suspension sennosides 8.6 mg capsule (senna) 17.2 mg PO DAILY PRN constipation 03/23/22 30 days #60 caps bismuth subcit K 140 3 cap PO QID 14 days #168 caps 03/25/22 mg-metronidazole 125 mg-tetracycline 125 mg cap (Pylera) famotidine 20 mg tablet 20 mg PO BEDTIME #30 tabs 04/03/22 pantoprazole 40 mg tablet,delayed 40 mg PO DAILY #30 tabs 04/03/22 release <DEYVI Norton - Last Filed: 04/03/22 19:16> Allergies/Adverse reactions: Allergies Allergy/AdvReac Type Severity Reaction Status Date / Time No Known Allergies Allergy Verified 03/17/22 13:58 <DEYVI Norton - Last Filed: 04/03/22 19:16> Review of Systems Review of Systems: CONSTITUTIONAL: Denies weight loss, fever and chills. HEENT: Denies changes in vision and hearing. RESPIRATORY: Denies SOB and cough. CV: Denies palpitations no CP. GI: + abdominal pain, nausea, no vomiting diarrhea. : Denies dysuria and urinary frequency. MSK: Denies myalgia and joint pain. SKIN: Denies rash and pruritus. NEUROLOGICAL: Denies headache and syncope. PSYCHIATRIC: Denies recent changes in mood. Denies anxiety and depression. All other ROS are negative unless in HPI <Ranulfo Lima MD - Last Filed: 04/03/22 21:48> [facility] Social History Social History: Social History Alcohol intake: never Patient Tobacco Use Status: Never used Tobacco Advance Directives: No Advance Directives Information Provided: No <DEYVI Norton - Last Filed: 04/03/22 19:16> Physical Exam Vital Signs: Vital Signs: Last Vital Signs Temp 97.4 F 04/03/22 19:12 Pulse 71 04/03/22 19:12 Resp 16 04/03/22 19:12 BP 106/86 04/03/22 19:12 Pulse Ox 98 04/03/22 19:12 O2 Del Method 04/03/22 19:12 BMI result Body Mass Index 26.4 <DEYVI Norton - Last Filed: 04/03/22 19:16> Vital Signs: Last Vital Signs Temp 97.4 F 04/03/22 19:12 Pulse 71 04/03/22 19:12 Resp 16 04/03/22 19:12 BP 106/86 04/03/22 19:12 Pulse Ox 98 04/03/22 19:12 O2 Del Method 04/03/22 19:12 BMI result Body Mass Index 26.4 GEN: Well developed, no acute distress, alert, oriented HEENT: Normocephalic, atraumatic, normal external ears, nose appears normal, no oropharyngeal edema or exudates Eyes: Normal to appearance Neck: Supple, no lymphadenopathy Respiratory: Talks in complete sentences, no respiratory distress, clear to auscultation bilaterally Cardiovascular: Regular rate and rhythm, no murmurs rubs or gallops Abdomen: Soft, nontender, nondistended, no guarding, no rebound Back: No CVA tenderness Extremities: No clubbing cyanosis or edema Neurologic: No focal neurologic deficits, cranial nerves 2-12 intact, strength is 5/5 bilaterally, gait normal Skin: No rash <Ranulfo Lima MD - Last Filed: 04/03/22 21:48> Course Course Course Narrative: SUJATA 9:15PM - 37yoM who is French-speaking with a past medical history of GERD was recently seen by Dr. Dickinson and had endoscopy on 03/22/2022 and discharged home with Pylera capsules taking as prescribed although reports he feels worsening symptoms which include epigastric abdominal pain/burning sensation that is radiating to his chest with associated nausea worse every time he takes these medications. Reports that he believes it is related to the medication he does not want to continue taking this medication because of making him feel worse. He denies any fevers, vomiting, chest pain or shortness of breath, diarrhea constipation or any other symptoms complaints or concerns at this time. Plan: will obtain basic labs and abdominal ultrasound. Patient will be sent to the waiting room to be evaluated in the ED. <DEYVI Norton - Last Filed: 04/03/22 19:16> Reevaluation(s) Reevaluation #1: The workup is complete. Patient's results have been discussed with him. Including his ultrasound. At this time, I would recommend stopping his antibiotic packet for H pylori until he is able to follow up with his heading and priming operator on Tuesday or Tuesday. In the meantime, I will recommend patient start a PPI and H2 sharmin at night. We also discussed diet which include low acid, low grease, low-fat diet. He will return for worsening and uncontrolled symptoms. All discharge instructions were discussed and understood. All questions were answered. <Ranulfo Lima MD - Last Filed: 04/03/22 21:48> Time: 21:41 <Ranulfo Lima MD - Last Filed: 04/03/22 21:48> Medical Decision Making Medical Decision Making [facility] Narrative: 37-year-old male with no major medical problems presents with epigastric abdominal pain radiating up his esophagus. Patient had a recent upper endoscopy and he was started on a Prevpac. Since then, patient's symptoms have gotten significantly worse. His symptoms preceded approximately 6 months in duration. He has had no significant nausea vomiting. Denies any melanotic stools. His examination was unremarkable. Multiple differential diagnoses being considered including medication reaction, gastritis, esophagitis, ulcer. His symptoms are not consistent with biliary colic although will order an ultrasound to make sure there is no biliary component. Patient will likely be able to be discharged with follow-up with his heading and priming operator. <Ranulfo Lima MD - Last Filed: 04/03/22 21:48> Differential Diagnosis Differential Diagnoses: The differential diagnosis associated with the presentation includes ( Gastritis, ulcer, esophagitis, biliary colic, esophageal dysmotility, esophageal spasm) <Ranulfo Lima MD - Last Filed: 04/03/22 21:48> gastritis, esophagitis <Ranulfo Lima MD - Last Filed: 04/03/22 21:48> Admission/Observation Consideration of admission/observation: Escalation of care including admission/observation considered <Ranulfo Lima MD - Last Filed: 04/03/22 21:48> Lab Data [facility] Lab Attestation statement: I reviewed the patient's lab results. <Ranulfo Lima MD - Last Filed: 04/03/22 21:48> Result Diagrams: 04/03/22 20:29 04/03/22 20:28 <DEYVI Norton - Last Filed: 02/11/23 19:16> Labs: Lab Results 04/03/22 04/03/22 04/03/22 Range/Units 00:00 20:28 20:29 WBC 4.4 L (4.8-10.8) X10*3/uL RBC 4.60 (4.60-5.80) X10*6/uL Hgb 15.1 (14.0-18.0) g/dl Hct 41.4 L (42.0-52.0) % MCV 90.0 (80.0-98.0) fL MCH 32.8 (27.0-33.0) pg MCHC 36.5 H (31.0-36.0) g/dl RDW 11.9 (11.0-16.0) % Plt Count 191 (160-400) X10*3/uL MPV 9.5 (9.4-12.4) fL Immature Gran % (Auto) 0.2 (0.0-0.4) % Neut % (Auto) 44.5 L (45-73) % Lymph % (Auto) 45.6 H (20-40) % Morrill % (Auto) 7.9 (2-11) % Eos % (Auto) 1.1 (0-4) % Baso % (Auto) 0.7 (0-2) % Lymph # (Auto) 2.0 (1.2-4.9) X10*3/uL Morrill # (Auto) 0.4 (0.1-1.2) X10*3/uL Eos # (Auto) 0.1 (0.0-0.4) X10*3/uL Baso # (Auto) 0.0 (0.0-0.2) X10*3/uL Abs Immat Gran (auto) 0.01 (0.00-0.03) X10*3/uL Absolute Neuts (auto) 2.0 (2.0-8.3) x10*3/uL Absolute Nucleated RBC 0.000 (0.0-0.012) X10*3/uL Nucleated RBC % (auto) 0.0 (0.0-0.2) /100WBC PT 13.4 H (10.0-13.1) SEC INR 1.2 H (0.9-1.1) Sodium 138 (135-145) mmol/L Potassium 4.2 (3.3-5.1) mmol/L Chloride 103 (96-108) mmol/L Carbon Dioxide 26 (22-29) mmol/L Anion Gap 13 (12-20) BUN 7 L (9-16) mg/dL Creatinine 0.73 (0.5-1.4) mg/dL Estim Creat Clear Calc 112.3 Estimated GFR > 60 Random Glucose 82 (60-115) mg/dL Calcium 9.3 (8.4-10.2) mg/dL Magnesium 2.2 (1.6-2.6) mg/dL Total Bilirubin 0.6 (0.0-1.0) mg/dL AST 21 (5-37) U/L ALT 19 (0-40) U/L Alkaline Phosphatase 89 (39-117) U/L Total Protein 7.0 (6.5-8.0) g/dL Albumin 4.4 (3.5-5.0) g/dL Lipase 17 (8-78) U/L <DEYVI Norton - Last Filed: 04/03/22 19:16> Lab Results 04/03/22 04/03/22 04/03/22 Range/Units 00:00 20:28 20:29 WBC 4.4 L (4.8-10.8) X10*3/uL RBC 4.60 (4.60-5.80) X10*6/uL Hgb 15.1 (14.0-18.0) g/dl Hct 41.4 L (42.0-52.0) % MCV 90.0 (80.0-98.0) fL MCH 32.8 (27.0-33.0) pg MCHC 36.5 H (31.0-36.0) g/dl RDW 11.9 (11.0-16.0) % Plt Count 191 (160-400) X10*3/uL MPV 9.5 (9.4-12.4) fL Immature Gran % (Auto) 0.2 (0.0-0.4) % Neut % (Auto) 44.5 L (45-73) % Lymph % (Auto) 45.6 H (20-40) % Morrill % (Auto) 7.9 (2-11) % Eos % (Auto) 1.1 (0-4) % Baso % (Auto) 0.7 (0-2) % Lymph # (Auto) 2.0 (1.2-4.9) X10*3/uL Morrill # (Auto) 0.4 (0.1-1.2) X10*3/uL Eos # (Auto) 0.1 (0.0-0.4) X10*3/uL Baso # (Auto) 0.0 (0.0-0.2) X10*3/uL Abs Immat Gran (auto) 0.01 (0.00-0.03) X10*3/uL Absolute Neuts (auto) 2.0 (2.0-8.3) x10*3/uL Absolute Nucleated RBC 0.000 (0.0-0.012) X10*3/uL Nucleated RBC % (auto) 0.0 (0.0-0.2) /100WBC PT 13.4 H (10.0-13.1) SEC INR 1.2 H (0.9-1.1) Sodium 138 (135-145) mmol/L Potassium 4.2 (3.3-5.1) mmol/L Chloride 103 (96-108) mmol/L Carbon Dioxide 26 (22-29) mmol/L Anion Gap 13 (12-20) BUN 7 L (9-16) mg/dL Creatinine 0.73 (0.5-1.4) mg/dL Estim Creat Clear Calc 112.3 Estimated GFR > 60 Random Glucose 82 (60-115) mg/dL Calcium 9.3 (8.4-10.2) mg/dL Magnesium 2.2 (1.6-2.6) mg/dL Total Bilirubin 0.6 (0.0-1.0) mg/dL AST 21 (5-37) U/L ALT 19 (0-40) U/L Alkaline Phosphatase 89 (39-117) U/L Total Protein 7.0 (6.5-8.0) g/dL Albumin 4.4 (3.5-5.0) g/dL Lipase 17 (8-78) U/L <Ranulfo Lima MD - Last Filed: 04/03/22 21:48> Independent Interpretation I performed an independent interpretation of an: Ultrasound ( normal ultrasound of the abdomen) <Ranulfo Lima MD - Last Filed: 04/03/22 21:48> Radiology Impression Discussion of test interpretation with radiology: I have reviewed the radiologist's reading. ([address] [id number] ReportSigned Patient: Zack Louie#: [id number]: 1985Acct:[id number]/Sex: 37 / MADM Date: 04/03/22Loc: EDAttending Dr: Ordering Physician: Shelli Bailey Date of Service: 04/03/22 Procedure(s): US abdomen complete) <Ranulfo Lima MD - Last Filed: 04/03/22 21:48> External Record Review External record reviewed: Outpatient record ( endoscopy report) <Ranulfo Lima MD - Last Filed: 04/03/22 21:48> Prescription Management I considered prescription management with: Pain Medication and Antibiotic <Ranulfo Lima MD - Last Filed: 04/03/22 21:48> Discharge Plan Discharge Clinical Impression: GERD (gastroesophageal reflux disease), Gastritis <DEYVI Norton - Last Filed: 04/03/22 19:16> Patient Disposition: Home, Self-Care <DEYVI Norton - Last Filed: 04/03/22 19:16> Instructions: Gastritis (ED), Diet for Stomach Ulcers and Gastritis (ED), Gastroeso phageal Reflux Disease (ED) <DEYVI Norton - Last Filed: 04/03/22 19:16> Additional Instructions: for the time being, I am recommending that you stop the medications provided by her heading and priming operator until your able to follow-up with them. In the meantime, he will start pantoprazole in the morning and famotidine 20 mg at night. Should her symptoms worsen, develops dark black stools or bloody stools, please return to the emergency department for re-evaluation. <DEYVI Norton - Last Filed: 04/03/22 19:16> Prescriptions: New pantoprazole 40 mg tablet,delayed release (DR/EC) 40 mg PO DAILY Qty: 30 0RF famotidine 20 mg tablet 20 mg PO BEDTIME Qty: 30 0RF No Action senna 8.6 mg capsule 17.2 mg PO DAILY PRN (Reason: constipation) 30 Days Qty: 60 2RF Rx Instructions: Take 2 capsules by mouth at bedtime as needed for constipation Magic Mouthwash Diphen/Lido/Antacid 1:1:1 240 mL suspension 5 ml PO TID 10 Days Qty: 240 0RF Rx Instructions: Lidocaine Viscous 2 % 80mL; diphenhydramine 12.5 mg/5 mL 80mL; aluminum-mag hydrox-simeth [id number]/5mL 80mL Pylera 140-125-125 mg capsule 3 cap PO QID 14 Days Qty: 168 0RF omeprazole 20 mg capsule,delayed release(DR/EC) 40 mg PO DAILY 30 Days Qty: 60 0RF Gaviscon Extra Strength 254-237.5 mg/5 mL suspension 10 ml PO QID PRN (Reason: dyspepsia) Qty: 355 0RF omeprazole magnesium [Prilosec OTC] 20 mg tablet,delayed release (DR/EC) 20 mg PO BID Qty: 30 0RF omeprazole 40 mg capsule,delayed release(DR/EC) 40 mg PO BID 28 Days Qty: 56 1RF sucralfate 1 gram tablet 1 g PO QIDACHS 14 Days Qty: 60 0RF <DEYVI Norton - Last Filed: 04/03/22 19:16>
[2022-04-03 20:36] LABS: MANUAL DIFF FLAG NO
[2022-04-03 20:37] LABS: Basophils Percent Auto 0.7 % (0-2); Eosinophils Absolute Auto 0.1 X10*3/uL (0.0-0.4); Eosinophils Percent Auto 1.1 % (0-4); Hematocrit 41.4 % (42.0-52.0); Hemoglobin 15.1 g/dl (14.0-18.0); Imm Gran Abs Auto 0.01 X10*3/uL (0.00-0.03); Imm Gran Pct Auto 0.2 % (0.0-0.4); Lymphocytes Percent Auto 45.6 % (20-40); Mean Corpuscular HGB Conc 36.5 g/dl (31.0-36.0); Mean Corpuscular Hemoglobin 32.8 pg (27.0-33.0); Mean Platelet Volume 9.5 fL (9.4-12.4); Monocytes Absolute Auto 0.4 X10*3/uL (0.1-1.2); Monocytes Percent Auto 7.9 % (2-11); Neutrophils Percent Auto 44.5 % (45-73); Platelet Count 191 X10*3/uL (160-400); Red Cell Distribution Width 11.9 % (11.0-16.0); White Blood Count 4.4 X10*3/uL (4.8-10.8)
[2022-04-03 20:48] LABS: INTERNATIONAL NORM RATIO 1.2 (0.9-1.1); Prothrombin Time 13.4 SEC (10.0-13.1)
[2022-04-03 20:53] LABS: Alanine Aminotransferase 19 U/L (0-40); Albumin Level 4.4 g/dL (3.5-5.0); Alkaline Phosphatase 89 U/L (39-117); Anion Gap 13 (12-20); Aspartate Amino Transferase 21 U/L (5-37); Bilirubin Total 0.6 mg/dL (0.0-1.0); Blood Urea Nitrogen 7 mg/dL (9-16); Calcium 9.3 mg/dL (8.4-10.2); Carbon Dioxide 26 mmol/L (22-29); Chloride 103 mmol/L (96-108); Creatinine Clr Calc Pharmacy 112.3; Estimated Glomerular Filt Rate > 60; Glucose Random 82 mg/dL (60-115); Lipase 17 U/L (8-78); Magnesium 2.2 mg/dL (1.6-2.6); Potassium 4.2 mmol/L (3.3-5.1); Sodium 138 mmol/L (135-145)
== END 2022-04-03 22:00 | disposition home or self-care (01) ==
PROVIDERS: Physician Assistant Medical; Emergency Provider Emergency Medicine
DX: K29.70 Gastritis, unspecified, without bleeding (principal); K21.9 Gastro-esophageal reflux disease without esophagitis; R10.13 Epigastric pain; A04.8 Other specified bacterial intestinal infections
CPT/HCPCS: 36415; 76700; 80053; 83690; 83735; 85025; 85610; 99282; 99284

== ENCOUNTER → 2022-04-07 11:39 | Outpatient (BNVA) | payer MEDICAID, OTHER, SELFPAY | PROVIDERS: Visit Provider Internal Medicine | DX: R07.9 Chest pain, unspecified (principal); R91.8 Other nonspecific abnormal finding of lung field; R22.1 Localized swelling, mass and lump, neck; A04.8 Other specified bacterial intestinal infections | CPT/HCPCS: 99212 ==

== ENCOUNTER → 2022-04-28 08:53 | Outpatient (BNVA) | payer MEDICAID, OTHER, SELFPAY | PROVIDERS: PCP Registered Nurse; Visit Provider Internal Medicine | DX: Z11.0 Encounter for screening for intestinal infectious diseases (principal) | CPT/HCPCS: 99211 ==

== ENCOUNTER 2022-04-29 17:24 | Outpatient (REF) | payer SELFPAY ==
[2022-04-30 13:46] LABS: H Pylori Breath Test Negative (Negative)
== END 2022-04-29 17:25 | disposition home or self-care (01) ==
LOC: HO.LNP 17:24
PROVIDERS: Visit Provider Internal Medicine
DX: A04.8 Other specified bacterial intestinal infections (principal)
CPT/HCPCS: 83013

== ENCOUNTER 2022-07-01 18:55 | Emergency (ER) | payer MEDICAID, OTHER, SELFPAY ==
--- NOTE | ~2022-07-01 | XR_ITS ---
EXAMINATION: XR CHEST CLINICAL INFORMATION: Chest pain. COMPARISON: Chest done on 02/25/2022. TECHNIQUE: Frontal view of the chest was obtained. FINDINGS: No significant abnormality is noted involving the heart, lungs, mediastinum, bony thorax or soft tissues. XR/XR chest 1V IMPRESSION: No radiographic evidence of acute cardiopulmonary disease, unchanged since 02/25/2022.
[2022-07-01 18:58] VITALS: BP 97/52; PULSE 64; RESP 18; TEMP 36.8; O2SAT 100; BMI 25.8
--- NOTE | 2022-07-01 18:59 | ECG_ITS ---
Test Reason : CHEST PAIN Blood Pressure : / mmHG Vent. Rate : 060 BPM Atrial Rate : 060 BPM P-R Int : 152 ms QRS Dur : 084 ms QT Int : 404 ms P-R-T Axes : 057 044 035 degrees QTc Int : 404 ms Normal sinus rhythm Normal ECG When compared with ECG of 24-FEB-2022 23:54, No significant change was found Referred By: Olive Mcclure Electronically Signed By:BRAD LION
--- NOTE | 2022-07-01 18:59 | ED_ITS ---
HPI - General Adult General Chief complaint: Chest Pain Stated complaint: chest pain Time Seen by Provider: 07/01/22 22:02 Source: patient Mode of arrival: ambulatory Limitations: no limitations History of Present Illness HPI narrative: Patient comes to the emergency room complaining of 7 months of epigastric burni ng sensation. Patient states that he takes omeprazole at home. Patient has also been diagnosed with H pylori in the past. Related Data Previous Rx's Medication Instructions Recorded aluminum hydrox-magnesium carb 254 10 ml PO QID PRN dyspepsia #355 mL 01/16/22 mg-237.5 mg/5 mL oral suspension (Gaviscon Extra Strength) omeprazole 20 mg capsule,delayed 40 mg PO DAILY 30 days #60 caps 01/16/22 release omeprazole 40 mg capsule,delayed 40 mg PO BID 4 weeks #56 caps 03/17/22 release sucralfate 1 gram tablet 1 g PO QIDACHS 14 days #60 tabs 03/17/22 Magic Mouthwash 5 ml PO TID 10 days #240 mL 03/23/22 Diphen/Lido/Antacid 1:1:1 240 mL suspension sennosides 8.6 mg capsule (senna) 17.2 mg PO DAILY PRN constipation 03/23/22 30 days #60 caps bismuth subcit K 140 3 cap PO QID 14 days #168 caps 03/25/22 mg-metronidazole 125 mg-tetracycline 125 mg cap (Pylera) famotidine 20 mg tablet 20 mg PO BEDTIME #30 tabs 04/03/22 sucralfate 1 gram tablet 1 g PO BID #60 tabs 07/01/22 Allergies Allergy/AdvReac Type Severity Reaction Status Date / Time No Known Allergies Allergy Verified 03/17/22 13:58 Review of Systems Review of Systems: Constitutional : No Weight loss, No Fever, No Chills, No Night Sweats, No Fatigue, No Malaise ENT/Mouth : No Hearing loss, No Ear Pain, No Nasal Congestion, No Sinus Pain, No Hoarseness, No sore throat, No Rhinorrhea, No Swallowing Difficulty Eyes: No Eye Pain, No Swelling, No Redness, No Foreign Body, No Discharge, No Vision Changes Cardiovascular : No Chest Pain, complaining of burning sensation radiating from the stomach up to the chest for 7 months, No SOB, No Dyspnea on Exertion, No Orthopnea, No Edema, No Palpitations Respiratory : No Cough, No Sputum, No Wheezing, No Smoke Exposure, No Dyspnea Gastrointestinal : No Nausea, No Vomiting, No Diarrhea, No Constipation, No abdominal Pain, No Hematochezia, No Melena Genitourinary : no irregular bleeding, No Dysuria, No Urinary Frequency, No Hematuria, No Urinary Incontinence, No Urgency, No Flank Pain, No Urinary Flow Changes, No Hesitancy Musculoskeletal : No joint pain, No Myalgias, No Joint Swelling Skin : No Skin Lesions, No rash Neuro : No Weakness, No Numbness, No Paresthesias, No Loss of Consciousness, No Dizziness, No Headache Psych : No Anxiety/Panic, No Depression, No SI/HI/AH/VH, No Social Issues, Heme/Lymph: No Bruising, No Bleeding,No Lymphadenopathy Endocrine : No Polyuria, No Polydipsia, No Temperature Intolerance [facility] Past Medical History Medical History (Updated 07/01/22 @ 22:25 by Adriana Wilkins MD) H. pylori infection Surgical History History of esophagogastroduodenoscopy (EGD) Social History Social History Alcohol intake: never Patient Tobacco Use Status: Never used Tobacco Advance Directives: No Advance Directives Information Provided: Yes Physical Exam ED Vital Signs: Vital Signs - 24 hr 07/01/22 18:58 Temperature 98.3 F Pulse Rate 64 Respiratory Rate 18 Blood Pressure 97/52 L Pulse Oximetry 100 Oxygen Delivery Method Room Air BMI result Body Mass Index 25.8 Const Other: Appearance: Alert. Oriented X3. No acute distress. Eyes: Pupils equal, round and reactive to light. ENT: Pharynx normal. Neck: Normal inspection. Neck supple. No lymph nodes noted. No crepitus CVS: Normal heart rate and rhythm. Pulses normal. Normal S1 and S2 Respiratory: No respiratory distress. Breath sounds normal. No Wheezing. No rales Abdomen: Soft and nontender. No rigidity. No distention. Skin: Skin warm and dry. Normal skin color. Normal skin turgor. Extremities: No lower extremity edema. No Lacerations. No Rash Neuro: Oriented X 3. No motor deficit. No sensory deficit. Moving all extremities. No slurred speech. CN 2 through 12 grossly intact Psych: calm, cooperative, normal affect Course Course Course Narrative: This is an RME: Additional HPI, ROS, PE not included below will be deferred to primary provider. 37 year old male with PMH of H pylori presents with burning chest pain for 7 months. Patient denies alcohol use for 17 years. Plan: Labs, EKG,medications Medications Administered Discontinued Medications Generic Name Dose Route Start Last Admin Trade Name Freq PRN Reason Stop Dose Admin Al Hydroxide/Mg Hydroxide 30 ml 07/01/22 19:00 07/01/22 21:56 Magnesium Hydrox/Alum Hydrox 30 Ml Oral.Susp PO 07/01/22 19:01 30 ml ONCE ONE Administration Belladonna Alkaloids/Phenobarbital 10 ml 07/01/22 19:00 07/01/22 21:57 Phenobarb/Hyoscy/Atropine/Scop 10 Ml Elixir PO 07/01/22 19:01 10 ml ONCE ONE Administration Ondansetron HCl 4 mg 07/01/22 19:00 07/01/22 21:58 Ondansetron Hcl 4 Mg/2 Ml Vial IVPUSH 07/01/22 19:01 Not Given ONCE ONE Medical Decision Making Medical Decision Making MDM Narrative: -EKG my interpretation: Sinus rhythm, heart rate 60, no ST segment depression elevation, no T-wave inversion, QTC 404, EKG did not transfer to the EMR -troponin negative -patient has been having symptoms for 7 months, no new symptoms. Likely to have peptic ulcer disease. Discussed with the patient that he will likely need an endoscopy and follow-up with Gastroenterology. Lab Data 07/01/22 19:51 07/01/22 19:51 Labs: Lab Results 07/01/22 07/01/22 07/01/22 Range/Units 19:51 19:51 19:51 WBC 6.9 (4.8-10.8) X10*3/uL RBC 4.23 L (4.60-5.80) X10*6/uL Hgb 13.9 L (14.0-18.0) g/dl Hct 38.0 L (42.0-52.0) % MCV 89.8 (80.0-98.0) fL MCH 32.9 (27.0-33.0) pg MCHC 36.6 H (31.0-36.0) g/dl RDW 11.9 (11.0-16.0) % Plt Count 166 (160-400) X10*3/uL MPV 10.0 (9.4-12.4) fL Immature Gran % (Auto) 0.1 (0.0-0.4) % Neut % (Auto) 63.9 (45-73) % Lymph % (Auto) 28.3 (20-40) % [place] % (Auto) 6.8 (2-11) % Eos % (Auto) 0.6 (0-4) % Baso % (Auto) 0.3 (0-2) % Lymph # (Auto) 2.0 (1.2-4.9) X10*3/uL [place] # (Auto) 0.5 (0.1-1.2) X10*3/uL Eos # (Auto) 0.0 (0.0-0.4) X10*3/uL Baso # (Auto) 0.0 (0.0-0.2) X10*3/uL Abs Immat Gran (auto) 0.01 (0.00-0.03) X10*3/uL Absolute Neuts (auto) 4.4 (2.0-8.3) x10*3/uL Absolute Nucleated RBC 0.000 (0.0-0.012) X10*3/uL Nucleated RBC % (auto) 0.0 (0.0-0.2) /100WBC Sodium 140 (135-145) mmol/L Potassium 3.7 (3.3-5.1) mmol/L Chloride 109 H (96-108) mmol/L Carbon Dioxide 25 (22-29) mmol/L Anion Gap 10 L (12-20) BUN 11 (9-16) mg/dL Creatinine 0.73 (0.5-1.4) mg/dL Estim Creat Clear Calc 126.2 Estimated GFR > 60 Random Glucose 85 (60-115) mg/dL Calcium 9.1 (8.4-10.2) mg/dL Magnesium 1.9 (1.6-2.6) mg/dL Total Bilirubin 1.1 H (0.0-1.0) mg/dL AST 24 (5-37) U/L ALT 34 (0-40) U/L Alkaline Phosphatase 116 (39-117) U/L Troponin I High Sens < 2.7 (<3.5-35.0) ng/L Total Protein 7.0 (6.5-8.0) g/dL Albumin 4.3 (3.5-5.0) g/dL Lipase 15 (8-78) U/L Scores Heart Score History: -0- slightly suspicious ECG: -0- normal Age: -0- < or = 45 Risk factory: -0- no risk factors known Troponin: -0- < or = normal limit Score: 0 Risk: 1.7% Discharge Plan Discharge Clinical Impression: Peptic ulcer disease Patient Disposition: Home, Self-Care Instructions: Peptic Ulcer (ED), Diet for Stomach Ulcers and Gastritis (ED) Additional Instructions: Please follow-up with your primary care physician tomorrow. If you have any worsening or new symptoms, please return to the emergency room or call 911 Prescriptions: New sucralfate 1 gram tablet 1 g PO BID Qty: 60 0RF No Action senna 8.6 mg capsule 17.2 mg PO DAILY PRN (Reason: constipation) 30 Days Qty: 60 2RF Rx Instructions: Take 2 capsules by mouth at bedtime as needed for constipation Magic Mouthwash Diphen/Lido/Antacid 1:1:1 240 mL suspension 5 ml PO TID 10 Days Qty: 240 0RF Rx Instructions: Lidocaine Viscous 2 % 80mL; diphenhydramine 12.5 mg/5 mL 80mL; aluminum-mag hydrox-simeth [id number]-[id number]-52zr/5mL 80mL Pylera 140-125-125 mg capsule 3 cap PO QID 14 Days Qty: 168 0RF omeprazole 20 mg capsule,delayed release(DR/EC) 40 mg PO DAILY 30 Days Qty: 60 0RF Gaviscon Extra Strength 254-237.5 mg/5 mL suspension 10 ml PO QID PRN (Reason: dyspepsia) Qty: 355 0RF famotidine 20 mg tablet 20 mg PO BEDTIME Qty: 30 0RF omeprazole 40 mg capsule,delayed release(DR/EC) 40 mg PO BID 28 Days Qty: 56 1RF sucralfate 1 gram tablet 1 g PO QIDACHS 14 Days Qty: 60 0RF
[2022-07-01 19:57] LABS: MANUAL DIFF FLAG NO
[2022-07-01 19:59] LABS: Basophils Percent Auto 0.3 % (0-2); Eosinophils Percent Auto 0.6 % (0-4); Hemoglobin 13.9 g/dl (14.0-18.0); Imm Gran Abs Auto 0.01 X10*3/uL (0.00-0.03); Imm Gran Pct Auto 0.1 % (0.0-0.4); Lymphocytes Percent Auto 28.3 % (20-40); Mean Corpuscular HGB Conc 36.6 g/dl (31.0-36.0); Mean Corpuscular Hemoglobin 32.9 pg (27.0-33.0); Mean Corpuscular Volume 89.8 fL (80.0-98.0); Monocytes Absolute Auto 0.5 X10*3/uL (0.1-1.2); Monocytes Percent Auto 6.8 % (2-11); Neutrophils Absolute Auto 4.4 x10*3/uL (2.0-8.3); Neutrophils Percent Auto 63.9 % (45-73); Platelet Count 166 X10*3/uL (160-400); Red Blood Count 4.23 X10*6/uL (4.60-5.80); Red Cell Distribution Width 11.9 % (11.0-16.0); White Blood Count 6.9 X10*3/uL (4.8-10.8)
[2022-07-01 20:12] LABS: Alanine Aminotransferase 34 U/L (0-40); Albumin Level 4.3 g/dL (3.5-5.0); Alkaline Phosphatase 116 U/L (39-117); Anion Gap 10 (12-20); Aspartate Amino Transferase 24 U/L (5-37); Bilirubin Total 1.1 mg/dL (0.0-1.0); Blood Urea Nitrogen 11 mg/dL (9-16); Calcium 9.1 mg/dL (8.4-10.2); Carbon Dioxide 25 mmol/L (22-29); Chloride 109 mmol/L (96-108); Creatinine Clr Calc Pharmacy 126.2; Estimated Glomerular Filt Rate > 60; Glucose Random 85 mg/dL (60-115); Lipase 15 U/L (8-78); Magnesium 1.9 mg/dL (1.6-2.6); Potassium 3.7 mmol/L (3.3-5.1); Sodium 140 mmol/L (135-145)
[2022-07-01 20:20] LABS: Troponin-I High Sensitivity < 2.7 ng/L (<3.5-35.0)
--- NOTE | 2022-07-01 21:51 | PC.NURSE ---
medications not administered on time due to patient being in the waiting room, no IV access at this time
[2022-07-01] MEDS: Magnesium Hydrox/Alum Hydrox 30 ML ORAL.SUSP PO (21:56)
[2022-07-01] MEDS: PHENobarb/Hyoscy/Atropine/Scop 10 ML ELIXIR PO (21:57)
--- NOTE | 2022-07-01 21:58 | PC.NURSE ---
pt brought back from waiting room, reporting burning chest pain unrelieved by medications he has taken at home. Medications administered per MAR at this time. No IV access at this time. Pt is lux[place] speaking only, in no apparent distress at this time, respirations even and unlabored, skin pwd, alert and oriented x4
[2022-07-01 22:22] VITALS: BP 98/64; PULSE 70; RESP 15; TEMP 36.8; O2SAT 97
[2022-07-01 22:28] VITALS: BP 97/67; PULSE 57; RESP 14; TEMP 36.6; O2SAT 99
--- NOTE | 2022-07-01 22:40 | PC.NURSE ---
Addendum entered by Margaret Schroeder 07/01/22 22:42: no sob, can speak in ful sentences Original Note: per charge d/c pt discharge instructions given and explained to pt no apparent distress ambulates safely/independently
== END 2022-07-01 22:42 | disposition home or self-care (01) ==
PROVIDERS: Physician Assistant; Emergency Provider Emergency Medicine
DX: K27.9 Peptic ulcer, site unspecified, unspecified as acute or chronic, without hemorrhage or perforation (principal); R07.89 Other chest pain; R10.13 Epigastric pain; Z79.899 Other long term (current) drug therapy
CPT/HCPCS: 36415; 71045; 80053; 83690; 83735; 84484; 85025; 93005; 99283; 99284

== ENCOUNTER 2022-08-22 19:47 | Emergency (ER) | payer MEDICAID, OTHER, SELFPAY ==
[2022-08-22 19:49] VITALS: BP 105/71; PULSE 60; RESP 18; TEMP 36.4; O2SAT 97; BMI 23.3
[2022-08-22 23:28] VITALS: BP 123/77; PULSE 54; RESP 15; O2SAT 99
--- NOTE | 2022-08-22 23:47 | ED.CHESTPAIN ---
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 Left-sided chest pain for few months, came in today describing left-sided chest pain localized to the left chest with no radiation, no clear aggravating or exacerbating factors, no clear relieving factors, pain happen randomly, with no radiation, no other association of SOB, nausea, or vomiting, no recent travel, no lower extremities swelling, with chest pain patient feels itching in the throat that trigger him to have dry coughing. No chest trauma, patient was seen and evaluated by GI and had upper endoscopy shows no suspicion for a severe GI days or gastritis or GERD, patient also had chest CT 5 months ago which showed low risk right lower lobe pulmonary nodule, PCP is managing patient's chest pain and scheduled to see a application systems administrator in the near future. Related Data Previous Rx's Medication Instructions Recorded aluminum hydrox-magnesium carb 254 10 ml PO QID PRN dyspepsia #355 mL 01/16/22 mg-237.5 mg/5 mL oral suspension (Gaviscon Extra Strength) omeprazole 20 mg capsule,delayed 40 mg PO DAILY 30 days #60 caps 01/16/22 release omeprazole 40 mg capsule,delayed 40 mg PO BID 4 weeks #56 caps 03/17/22 release sucralfate 1 gram tablet 1 g PO QIDACHS 14 days #60 tabs 03/17/22 Magic Mouthwash 5 ml PO TID 10 days #240 mL 03/23/22 Diphen/Lido/Antacid 1:1:1 240 mL suspension sennosides 8.6 mg capsule (senna) 17.2 mg PO DAILY PRN constipation 03/23/22 30 days #60 caps bismuth subcit K 140 3 cap PO QID 14 days #168 caps 03/25/22 mg-metronidazole 125 mg-tetracycline 125 mg cap (Pylera) famotidine 20 mg tablet 20 mg PO BEDTIME #30 tabs 04/03/22 sucralfate 1 gram tablet 1 g PO BID #60 tabs 07/01/22 Allergies Allergy/AdvReac Type Severity Reaction Status Date / Time No Known Allergies Allergy Verified 03/17/22 13:58 Review of Systems Review of Systems: All other systems are reviewed and are negative Constitutional: Reports as per HPI and Reports no additional constitutional complaints Eyes: Reports as per HPI and Reports no additional eye complaints Reports system reviewed and no additional complaints, except as documented Cardiovascular: Reports as per HPI and Reports no additional cardiovascular complaints Respiratory: Reports as per HPI and Reports no additional respiratory complaints Gastrointestinal: Reports as per HPI and Reports no additional gastrointestinal complaints Genitourinary: Reports no additional female genitourinary complaints Musculoskeletal: Reports no additional musculoskeletal complaints Skin/Breast: Reports system reviewed and no additional complaints, except as docu Psychiatric: Reports no additional psychiatric complaints Endocrine: Reports no additional endocrine complaints Hematologic/Lymphatic: Reports no additional hematologic/lymphatic complaints Allergic/Immunologic: Reports no additional allergic/immunologic complaints Reports system reviewed and no additional complaints, except as documented and Reports Abnormal speech present [facility] Past Medical History Medical History H. pylori infection Surgical History History of esophagogastroduodenoscopy (EGD) Social History Social History Alcohol intake: never Patient Tobacco Use Status: Never used Tobacco Advance Directives: No Advance Directives Information Provided: No Physical Exam Vital Signs: Vital Signs: Last Vital Signs Temp 97.5 F 08/22/22 19:49 Pulse 54 08/22/22 23:28 Resp 15 08/22/22 23:28 BP 123/77 08/22/22 23:28 Pulse Ox 99 08/22/22 23:28 O2 Del Method Room Air 08/22/22 23:28 BMI result Body Mass Index 23.3 Vital signs have been reviewed as appeared to be correct. Blood pressure normal. Heart rate normal. Respiration rate normal. Temperature normal. Oxygen saturation normal. Appearance: Alert. Oriented X3. No acute distress. Head: Normal external exam. Normocephalic. Atraumatic. No [place] signs noted. No raccoon eyes noted Eyes: PERRLA. EOMI. Conjunctiva and sclera normal. Eyelids normal. ENT: TM's Normal. Pharynx normal. Uvula midline. Moist mucous membranes. No trismus noted. No drooling noted. No muffled voice noted. Neck: Normal inspection. Neck supple. FROM. No adenopathy. Thyroid Normal. No meningeal signs. No neck mass noted. CVS: Normal heart rate and rhythm. Heart sound normal. No murmurs noted. Pulses normal throughout. Respiratory: No respiratory distress. Painless inspiration. Breath sounds normal. No wheezes/rales/rhonchi noted. Chest nontender. No accessory muscle usage noted or decreased air movement noted. Abdomen: Soft and nontender. Bowel sounds normal in all 4 quadrants. No distention noted. No organomegaly noted. No visible injury noted. Back: No CVA tenderness. Full range of motion noted. Skin: Skin warm and dry. Normal skin color. Normal skin turgor. No rashes/lesions/lacerations noted. Extremities: No lower extremity edema. Extremities exhibit normal range of motion. Extremities nontender. Neuro: Oriented X 3. Cranial nerve exam: II-XII are grossly intact No motor deficit. No sensory deficit. Reflexes normal. Course Course Course Narrative: Chronic left-sided chest pain, negative cardiac workup in the emergency department, was seen and evaluated by GI and had upper endoscopy showed no GI issues, will refer the patient to our application systems administrator for outpatient further workup for chest pain. Medical Decision Making Differential Diagnosis Differential Diagnoses: The differential diagnosis associated with the presentation includes (ACS, costochondritis, chest wall pain, electrolytes abnormalities, severe anemia.) Admission/Observation Consideration of admission/observation: Escalation of care including admission/observation considered Lab Data MDM Lab Attestation statement: I reviewed the patient's lab results. 08/22/22 20:08 08/22/22 20:08 Labs: Lab Results 08/22/22 08/22/22 08/22/22 Range/Units 20:08 20:08 20:08 WBC 4.7 L (4.8-10.8) X10*3/uL RBC 4.48 L (4.60-5.80) X10*6/uL Hgb 14.3 (14.0-18.0) g/dl Hct 40.2 L (42.0-52.0) % MCV 89.7 (80.0-98.0) fL MCH 31.9 (27.0-33.0) pg MCHC 35.6 (31.0-36.0) g/dl RDW 11.9 (11.0-16.0) % Plt Count 185 (160-400) X10*3/uL MPV 10.3 (9.4-12.4) fL Immature Gran % (Auto) 0.2 (0.0-0.4) % Neut % (Auto) 45.9 (45-73) % Lymph % (Auto) 43.8 H (20-40) % [place] % (Auto) 7.6 (2-11) % Eos % (Auto) 2.3 (0-4) % Baso % (Auto) 0.2 (0-2) % Lymph # (Auto) 2.1 (1.2-4.9) X10*3/uL [place] # (Auto) 0.4 (0.1-1.2) X10*3/uL Eos # (Auto) 0.1 (0.0-0.4) X10*3/uL Baso # (Auto) 0.0 (0.0-0.2) X10*3/uL Abs Immat Gran (auto) 0.01 (0.00-0.03) X10*3/uL Absolute Neuts (auto) 2.2 (2.0-8.3) x10*3/uL Absolute Nucleated RBC 0.000 (0.0-0.012) X10*3/uL Nucleated RBC % (auto) 0.0 (0.0-0.2) /100WBC Sodium 139 (135-145) mmol/L Potassium 4.0 (3.3-5.1) mmol/L Chloride 104 (96-108) mmol/L Carbon Dioxide 24 (22-29) mmol/L Anion Gap 15 (12-20) BUN 14 (9-16) mg/dL Creatinine 0.92 (0.5-1.4) mg/dL Estim Creat Clear Calc 96.5 Estimated GFR > 60 Random Glucose 79 (60-115) mg/dL Calcium 9.2 (8.4-10.2) mg/dL Troponin I High Sens < 2.7 (<3.5-35.0) ng/L Independent Interpretation I performed an independent interpretation of an: EKG (Normal sinus rhythm at 58 beats per minutes, normal axis deviation, normal intervals, no ST-T changes, no change from old EKG.) and Plain X-Ray (Chest: No acute intrathoracic pathology.) Radiology Impression Discussion of test interpretation with radiology: I have reviewed the radiologist's reading. Discharge Plan Discharge Clinical Impression: Chest pain Patient Disposition: Home, Self-Care Instructions: Chest Pain (ED) Prescriptions: No Action senna 8.6 mg capsule 17.2 mg PO DAILY PRN (Reason: constipation) 30 Days Qty: 60 2RF Rx Instructions: Take 2 capsules by mouth at bedtime as needed for constipation Magic Mouthwash Diphen/Lido/Antacid 1:1:1 240 mL suspension 5 ml PO TID 10 Days Qty: 240 0RF Rx Instructions: Lidocaine Viscous 2 % 80mL; diphenhydramine 12.5 mg/5 mL 80mL; aluminum-mag hydrox-simeth 439gi-[id number]-55pb/5mL 80mL Pylera 140-125-125 mg capsule 3 cap PO QID 14 Days Qty: 168 0RF omeprazole 20 mg capsule,delayed release(DR/EC) 40 mg PO DAILY 30 Days Qty: 60 0RF Gaviscon Extra Strength 254-237.5 mg/5 mL suspension 10 ml PO QID PRN (Reason: dyspepsia) Qty: 355 0RF famotidine 20 mg tablet 20 mg PO BEDTIME Qty: 30 0RF sucralfate 1 gram tablet 1 g PO BID Qty: 60 0RF omeprazole 40 mg capsule,delayed release(DR/EC) 40 mg PO BID 28 Days Qty: 56 1RF sucralfate 1 gram tablet 1 g PO QIDACHS 14 Days Qty: 60 0RF Referrals: Karri Lee MD [Physician] -
== END 2022-08-23 00:09 | disposition home or self-care (01) ==
PROVIDERS: Emergency Provider Emergency Medicine
DX: R07.9 Chest pain, unspecified (principal); Z79.899 Other long term (current) drug therapy
CPT/HCPCS: 36415; 71045; 80048; 84484; 85025; 93005; 99283; 99284

== ENCOUNTER 2022-10-31 20:04 | Emergency (ER) | payer MEDICAID, OTHER, SELFPAY ==
--- NOTE | 2022-10-31 | ECG_ITS ---
Test Reason : CP Blood Pressure : / mmHG Vent. Rate : 055 BPM Atrial Rate : 055 BPM P-R Int : 146 ms QRS Dur : 084 ms QT Int : 442 ms P-R-T Axes : 040 048 033 degrees QTc Int : 422 ms Sinus bradycardia Otherwise normal ECG When compared with ECG of 22-AUG-2022 19:55, No significant change was found Referred By: Generic ED Physician Electronically Signed By:TRISTEN BOGGS
--- NOTE | ~2022-10-31 | XR_ITS ---
EXAMINATION: XR CHEST CLINICAL INFORMATION: Chest pain. COMPARISON: 08/22/2022 TECHNIQUE: Frontal view of the chest was obtained. FINDINGS: The cardiomediastinal silhouette is normal. There is no focal lung consolidation or pleural effusion. The bony structures and soft tissues are unremarkable. XR/XR chest 1V IMPRESSION: No active cardiopulmonary disease.
[2022-10-31 20:22] VITALS: BP 114/72; PULSE 54; RESP 16; TEMP 36.2; O2SAT 99; BMI 26.5
[2022-10-31 20:22] LABS: MANUAL DIFF FLAG NO
--- NOTE | 2022-10-31 20:28 | ED_ITS ---
HPI - Chest Pain General Chief Complaint: Chest Pain Stated Complaint: chest pain Time Seen by Provider: 10/31/22 21:58 Related Data Previous Rx's Medication Instructions Recorded aluminum hydrox-magnesium carb 254 10 ml PO QID PRN dyspepsia #355 mL 01/16/22 mg-237.5 mg/5 mL oral suspension (Gaviscon Extra Strength) omeprazole 20 mg capsule,delayed 40 mg (2 x 20 mg) PO DAILY 30 days 01/16/22 release #60 caps omeprazole 40 mg capsule,delayed 40 mg PO BID 4 weeks #56 caps 03/17/22 release sucralfate 1 gram tablet 1 g PO QIDACHS 14 days #60 tabs 03/17/22 Magic Mouthwash 5 ml PO TID 10 days #240 mL 03/23/22 Diphen/Lido/Antacid 1:1:1 240 mL suspension sennosides 8.6 mg capsule (senna) 17.2 mg (2 x 8.6 mg) PO DAILY PRN 03/23/22 constipation 30 days #60 caps bismuth subcit K 140 3 cap PO QID 14 days #168 caps 03/25/22 mg-metronidazole 125 mg-tetracycline 125 mg cap (Pylera) famotidine 20 mg tablet 20 mg PO BEDTIME #30 tabs 04/03/22 sucralfate 1 gram tablet 1 g PO BID #60 tabs 07/01/22 Allergies Allergy/AdvReac Type Severity Reaction Status Date / Time No Known Allergies Allergy Verified 03/17/22 13:58 PMFSH Past Medical History Medical History H. pylori infection Surgical History History of esophagogastroduodenoscopy (EGD) Social History Social History Alcohol intake: never Patient Tobacco Use Status: Never used Tobacco Advance Directives: No Advance Directives Information Provided: Yes Physical Exam 2 Vital Signs: Vital Signs: Last Vital Signs Temp 97.2 F 10/31/22 20:22 Pulse 54 10/31/22 20:22 Resp 16 10/31/22 20:22 BP 114/72 09/10/23 20:22 Pulse Ox 99 10/31/22 20:22 O2 Del Method Room Air 10/31/22 20:22 BMI result Body Mass Index 26.5 Course Course Course Narrative: This is an RME: Additional HPI, ROS, PE not included below will be deferred to primary provider. Patient is a 37-year-old male who presents to the emergency department for evaluation of left-sided chest pain radiating into the left shoulder intermittnet for the past year. He has previously been evaluated by his primary care provider without identified etiology. It is described as a burning sensation with pain. He had an endoscopy as well which was reportedly normal. Reportedly pain is significantly worsening since this afternoon without any injury. reports feeling shortness of breath associated with this Plan: labs, EKG Medical Decision Making Lab Data 10/31/22 20:18 10/31/22 20:18 Labs: Lab Results 10/31/22 Range/Units 20:18 WBC 5.4 (4.8-10.8) X10*3/uL RBC 4.42 L (4.60-5.80) X10*6/uL Hgb 14.2 (14.0-18.0) g/dl Hct 39.3 L (42.0-52.0) % MCV 88.9 (80.0-98.0) fL MCH 32.1 (27.0-33.0) pg MCHC 36.1 H (31.0-36.0) g/dl RDW 11.9 (11.0-16.0) % Plt Count 189 (160-400) X10*3/uL MPV 9.7 (9.4-12.4) fL Immature Gran % (Auto) 0.6 H (0.0-0.4) % Neut % (Auto) 46.7 (45-73) % Lymph % (Auto) 43.8 H (20-40) % [place] % (Auto) 6.3 (2-11) % Eos % (Auto) 2.2 (0-4) % Baso % (Auto) 0.4 (0-2) % Lymph # (Auto) 2.4 (1.2-4.9) X10*3/uL [place] # (Auto) 0.3 (0.1-1.2) X10*3/uL Eos # (Auto) 0.1 (0.0-0.4) X10*3/uL Baso # (Auto) 0.0 (0.0-0.2) X10*3/uL Abs Immat Gran (auto) 0.03 (0.00-0.03) X10*3/uL Absolute Neuts (auto) 2.5 (2.0-8.3) x10*3/uL Absolute Nucleated RBC 0.000 (0.0-0.012) X10*3/uL Nucleated RBC % (auto) 0.0 (0.0-0.2) /100WBC Sodium 138 (135-145) mmol/L Potassium 3.4 (3.3-5.1) mmol/L Chloride 106 (96-108) mmol/L Carbon Dioxide 24 (22-29) mmol/L Anion Gap 11 L (12-20) BUN 10 (9-16) mg/dL Creatinine 0.73 (0.5-1.4) mg/dL Estim Creat Clear Calc 117.7 Estimated GFR > 60 Random Glucose 119 H (60-115) mg/dL Calcium 8.8 (8.4-10.2) mg/dL Total Bilirubin 0.4 (0.0-1.0) mg/dL AST 25 (5-37) U/L ALT 33 (0-40) U/L Alkaline Phosphatase 112 (39-117) U/L Troponin I High Sens < 2.7 (<3.5-35.0) ng/L Total Protein 7.2 (6.5-8.0) g/dL Albumin 4.1 (3.5-5.0) g/dL COVID-19 ([facility]) Negative (Negative) COVID-19 Clin Com See Note Discharge Plan Discharge Clinical Impression: Chest pain Patient Disposition: Home, Self-Care Instructions: Chest Pain (DC) Prescriptions: No Action senna 8.6 mg capsule 17.2 mg PO DAILY PRN (Reason: constipation) 30 Days Qty: 60 2RF Rx Instructions: Take 2 capsules by mouth at bedtime as needed for constipation Magic Mouthwash Diphen/Lido/Antacid 1:1:1 240 mL suspension 5 ml PO TID 10 Days Qty: 240 0RF Rx Instructions: Lidocaine Viscous 2 % 80mL; diphenhydramine 12.5 mg/5 mL 80mL; aluminum-mag hydrox-simeth 407cg-[id number]-24uf/5mL 80mL Pylera 140-125-125 mg capsule 3 cap PO QID 14 Days Qty: 168 0RF omeprazole 20 mg capsule,delayed release(DR/EC) 40 mg PO DAILY 30 Days Qty: 60 0RF Gaviscon Extra Strength 254-237.5 mg/5 mL suspension 10 ml PO QID PRN (Reason: dyspepsia) Qty: 355 0RF famotidine 20 mg tablet 20 mg PO BEDTIME Qty: 30 0RF sucralfate 1 gram tablet 1 g PO BID Qty: 60 0RF omeprazole 40 mg capsule,delayed release(DR/EC) 40 mg PO BID 28 Days Qty: 56 1RF sucralfate 1 gram tablet 1 g PO QIDACHS 14 Days Qty: 60 0RF Referrals: Jung Rocha MD [Physician] - 11/02/22 Interventions: ED Discharge Assessment Last Done: 10/31/22 23:36 Discharge Date/Time: 10/31/22 23:37
[2022-10-31 20:36] LABS: Basophils Percent Auto 0.4 % (0-2); Eosinophils Absolute Auto 0.1 X10*3/uL (0.0-0.4); Eosinophils Percent Auto 2.2 % (0-4); Hematocrit 39.3 % (42.0-52.0); Hemoglobin 14.2 g/dl (14.0-18.0); Imm Gran Abs Auto 0.03 X10*3/uL (0.00-0.03); Imm Gran Pct Auto 0.6 % (0.0-0.4); Lymphocytes Absolute Auto 2.4 X10*3/uL (1.2-4.9); Lymphocytes Percent Auto 43.8 % (20-40); Mean Corpuscular HGB Conc 36.1 g/dl (31.0-36.0); Mean Corpuscular Hemoglobin 32.1 pg (27.0-33.0); Mean Corpuscular Volume 88.9 fL (80.0-98.0); Mean Platelet Volume 9.7 fL (9.4-12.4); Monocytes Absolute Auto 0.3 X10*3/uL (0.1-1.2); Monocytes Percent Auto 6.3 % (2-11); Neutrophils Absolute Auto 2.5 x10*3/uL (2.0-8.3); Neutrophils Percent Auto 46.7 % (45-73); Platelet Count 189 X10*3/uL (160-400); Red Blood Count 4.42 X10*6/uL (4.60-5.80); Red Cell Distribution Width 11.9 % (11.0-16.0); White Blood Count 5.4 X10*3/uL (4.8-10.8)
[2022-10-31 20:45] LABS: Alanine Aminotransferase 33 U/L (0-40); Albumin Level 4.1 g/dL (3.5-5.0); Alkaline Phosphatase 112 U/L (39-117); Anion Gap 11 (12-20); Aspartate Amino Transferase 25 U/L (5-37); Bilirubin Total 0.4 mg/dL (0.0-1.0); Blood Urea Nitrogen 10 mg/dL (9-16); Calcium 8.8 mg/dL (8.4-10.2); Carbon Dioxide 24 mmol/L (22-29); Chloride 106 mmol/L (96-108); Creatinine Clr Calc Pharmacy 117.7; Estimated Glomerular Filt Rate > 60; Glucose Random 119 mg/dL (60-115); Potassium 3.4 mmol/L (3.3-5.1); Sodium 138 mmol/L (135-145); Total Protein 7.2 g/dL (6.5-8.0)
[2022-10-31 20:49] LABS: COVID-19 Test Negative (Negative); IDNOW Serial# 08D9AD1C
[2022-10-31 20:59] LABS: Troponin-I High Sensitivity < 2.7 ng/L (<3.5-35.0)
--- NOTE | 2022-10-31 22:33 | ED.CHESTPAIN ---
HPI - Chest Pain General Chief Complaint: Chest Pain Stated Complaint: chest pain Time Seen by Provider: 10/31/22 21:58 History of Present Illness HPI narrative: Patient is a 37-year-old male presents today with having chest pain. The chest pain is on the left side. It has been constant for the last month. Patient previously it had an endoscopy colonoscopy done in the past was both grossly negative. He has no history of diabetes, hypertension, high cholesterol, smoking, [place]. Never had a heart attack. Did not have any leg swelling. No history of blood clots. Patient is from home. Chest pain has been continuous. Not associated with shortness of breath not associated with diaphoresis. Related Data Previous Rx's Medication Instructions Recorded aluminum hydrox-magnesium carb 254 10 ml PO QID PRN dyspepsia #355 mL 01/16/22 mg-237.5 mg/5 mL oral suspension (Gaviscon Extra Strength) omeprazole 20 mg capsule,delayed 40 mg (2 x 20 mg) PO DAILY 30 days 01/16/22 release #60 caps omeprazole 40 mg capsule,delayed 40 mg PO BID 4 weeks #56 caps 03/17/22 release sucralfate 1 gram tablet 1 g PO QIDACHS 14 days #60 tabs 03/17/22 Magic Mouthwash 5 ml PO TID 10 days #240 mL 03/23/22 Diphen/Lido/Antacid 1:1:1 240 mL suspension sennosides 8.6 mg capsule (senna) 17.2 mg (2 x 8.6 mg) PO DAILY PRN 03/23/22 constipation 30 days #60 caps bismuth subcit K 140 3 cap PO QID 14 days #168 caps 03/25/22 mg-metronidazole 125 mg-tetracycline 125 mg cap (Pylera) famotidine 20 mg tablet 20 mg PO BEDTIME #30 tabs 04/03/22 sucralfate 1 gram tablet 1 g PO BID #60 tabs 07/01/22 Allergies Allergy/AdvReac Type Severity Reaction Status Date / Time No Known Allergies Allergy Verified 03/17/22 13:58 Review of Systems Review of Systems: Positive chest pain Yes all other systems are reviewed and are negative PMFSH Past Medical History Medical History H. pylori infection Surgical History History of esophagogastroduodenoscopy (EGD) Social History Social History Alcohol intake: never Patient Tobacco Use Status: Never used Tobacco Advance Directives: No Advance Directives Information Provided: Yes Physical Exam Vital Signs: Vital Signs: Last Vital Signs Temp 97.2 F 10/31/22 20:22 Pulse 54 10/31/22 20:22 Resp 16 10/31/22 20:22 BP 114/72 10/31/22 20:22 Pulse Ox 99 10/31/22 20:22 O2 Del Method Room Air 10/31/22 20:22 BMI result Body Mass Index 26.5 Appearance: Alert. Oriented X3. No acute distress. Eyes: Pupils equal, round and reactive to light. ENT: Pharynx normal. Neck: Normal inspection. Neck supple. No lymph nodes noted. No crepitus CVS: Normal heart rate and rhythm. Pulses normal. Normal S1 and S2 Respiratory: No respiratory distress. Breath sounds normal. No Wheezing. No rales Abdomen: Soft and nontender. No rigidity. No distention. good BS x4 Skin: Skin warm and dry. Normal skin color. Normal skin turgor. Extremities: No lower extremity edema. Neurovascular intact to all extremities. No Lacerations. No Rash Neuro: Oriented X 3. No motor deficit. No sensory deficit. Moving all extermities. No slurred speech Medical Decision Making Medical Decision Making MDM Narrative: Positive chest pain, atypical for ACS. No significant cardiac risk factor. Patient's troponin is negative. My interpretation the patient's EKG showed a sinus pattern heart rate 68 AK QRS QT see within normal limits there is no acute ST segment elevation noted. Patient well-appearing. Pain is the same as prior. Unlikely GI is patient had endoscopy colonoscopy in the past. Is no risk for pulmonary emboli. Chest x-ray is currently pending to rule out the possibility of pneumonia pneumothorax. Is currently in stable condition. Will require follow-up on an outpatient basis with cardiology for his persistent chest pain My interpretation patient's chest x-ray is grossly negative. I reviewed radiology reading. There is no evidence of pneumonia no pneumo Differential Diagnosis Differential Diagnoses: The differential diagnosis associated with the presentation includes Chest wall pain, pneumonia, pneumothorax, pulmonary emboli, dissection, musculoskeletal chest pain Admission/Observation Consideration of admission/observation: Escalation of care including admission/observation considered Considered admission but patient's heart score less than 3 felt patient does not need to be admitted Lab Data MDM Lab Attestation statement: I reviewed the patient's lab results. 10/31/22 20:18 10/31/22 20:18 Labs: Lab Results 10/31/22 Range/Units 20:18 WBC 5.4 (4.8-10.8) X10*3/uL RBC 4.42 L (4.60-5.80) X10*6/uL Hgb 14.2 (14.0-18.0) g/dl Hct 39.3 L (42.0-52.0) % MCV 88.9 (80.0-98.0) fL MCH 32.1 (27.0-33.0) pg MCHC 36.1 H (31.0-36.0) g/dl RDW 11.9 (11.0-16.0) % Plt Count 189 (160-400) X10*3/uL MPV 9.7 (9.4-12.4) fL Immature Gran % (Auto) 0.6 H (0.0-0.4) % Neut % (Auto) 46.7 (45-73) % Lymph % (Auto) 43.8 H (20-40) % [place] % (Auto) 6.3 (2-11) % Eos % (Auto) 2.2 (0-4) % Baso % (Auto) 0.4 (0-2) % Lymph # (Auto) 2.4 (1.2-4.9) X10*3/uL [place] # (Auto) 0.3 (0.1-1.2) X10*3/uL Eos # (Auto) 0.1 (0.0-0.4) X10*3/uL Baso # (Auto) 0.0 (0.0-0.2) X10*3/uL Abs Immat Gran (auto) 0.03 (0.00-0.03) X10*3/uL Absolute Neuts (auto) 2.5 (2.0-8.3) x10*3/uL Absolute Nucleated RBC 0.000 (0.0-0.012) X10*3/uL Nucleated RBC % (auto) 0.0 (0.0-0.2) /100WBC Sodium 138 (135-145) mmol/L Potassium 3.4 (3.3-5.1) mmol/L Chloride 106 (96-108) mmol/L Carbon Dioxide 24 (22-29) mmol/L Anion Gap 11 L (12-20) BUN 10 (9-16) mg/dL Creatinine 0.73 (0.5-1.4) mg/dL Estim Creat Clear Calc 117.7 Estimated GFR > 60 Random Glucose 119 H (60-115) mg/dL Calcium 8.8 (8.4-10.2) mg/dL Total Bilirubin 0.4 (0.0-1.0) mg/dL AST 25 (5-37) U/L ALT 33 (0-40) U/L Alkaline Phosphatase 112 (39-117) U/L Troponin I High Sens < 2.7 (<3.5-35.0) ng/L Total Protein 7.2 (6.5-8.0) g/dL Albumin 4.1 (3.5-5.0) g/dL COVID-19 (SLICK) Negative (Negative) COVID-19 Clin Com See Note Independent Interpretation I performed an independent interpretation of an: EKG and Plain X-Ray Interpretation: My interpretation patient's EKG showed a sinus pattern heart rate is 60 AK QRS QTC within normal limits is no acute ST segment elevation noted. Chest x-ray showed pneumonia no pneumothorax Radiology Impression Discussion of test interpretation with radiology: I have reviewed the radiologist's reading. External Record Review External record reviewed: Inpatient record Chronic Conditions History of chest pain Discharge Plan Discharge Clinical Impression: Chest pain Patient Disposition: Home, Self-Care Instructions: Chest Pain (DC) Prescriptions: No Action senna 8.6 mg capsule 17.2 mg PO DAILY PRN (Reason: constipation) 30 Days Qty: 60 2RF Rx Instructions: Take 2 capsules by mouth at bedtime as needed for constipation Magic Mouthwash Diphen/Lido/Antacid 1:1:1 240 mL suspension 5 ml PO TID 10 Days Qty: 240 0RF Rx Instructions: Lidocaine Viscous 2 % 80mL; diphenhydramine 12.5 mg/5 mL 80mL; aluminum-mag hydrox-simeth [id number]/5mL 80mL Pylera 140-125-125 mg capsule 3 cap PO QID 14 Days Qty: 168 0RF omeprazole 20 mg capsule,delayed release(DR/EC) 40 mg PO DAILY 30 Days Qty: 60 0RF Gaviscon Extra Strength 254-237.5 mg/5 mL suspension 10 ml PO QID PRN (Reason: dyspepsia) Qty: 355 0RF famotidine 20 mg tablet 20 mg PO BEDTIME Qty: 30 0RF sucralfate 1 gram tablet 1 g PO BID Qty: 60 0RF omeprazole 40 mg capsule,delayed release(DR/EC) 40 mg PO BID 28 Days Qty: 56 1RF sucralfate 1 gram tablet 1 g PO QIDACHS 14 Days Qty: 60 0RF Referrals: Jung Rocha MD [Physician] - 11/02/22
== END 2022-10-31 23:37 | disposition home or self-care (01) ==
PROVIDERS: Emergency Provider Emergency Medicine Emergency Medical Services
DX: R07.89 Other chest pain (principal); R00.1 Bradycardia, unspecified; Z20.822 Contact with and (suspected) exposure to COVID-19; Z20.828 Contact with and (suspected) exposure to other viral communicable diseases; Z79.899 Other long term (current) drug therapy
CPT/HCPCS: 71045; 80053; 84484; 85025; 87635; 93005; 99283

== ENCOUNTER 2023-02-24 18:38 | Emergency (ER) | payer MEDICAID, OTHER, SELFPAY ==
[2023-02-24 19:26] VITALS: BP 112/76; PULSE 88; RESP 18; TEMP 36.5; O2SAT 96; BMI 23.3
--- NOTE | 2023-02-24 19:31 | ED.GENADULT ---
HPI - General Adult General Chief complaint: Abdominal Pain Stated complaint: abd pain Time Seen by Provider: 02/25/23 03:48 Source: patient Mode of arrival: ambulatory Limitations: no limitations History of Present Illness HPI narrative: Patient comes to the emergency room complaining of nausea vomiting and diarrhea and abdominal cramping since yesterday. Patient states that he takes omeprazole daily, patient has had H pylori in the past, states that he has had endoscopies in the past and he has been told that he does not have GERD Related Data Previous Rx's Medication Instructions Recorded aluminum hydrox-magnesium carb 254 10 ml PO QID PRN dyspepsia #355 mL 01/16/22 mg-237.5 mg/5 mL oral suspension (Gaviscon Extra Strength) omeprazole 20 mg capsule,delayed 40 mg (2 x 20 mg) PO DAILY 30 days 01/16/22 release #60 caps omeprazole 40 mg capsule,delayed 40 mg PO BID 4 weeks #56 caps 03/17/22 release sucralfate 1 gram tablet 1 g PO QIDACHS 14 days #60 tabs 03/17/22 Magic Mouthwash 5 ml PO TID 10 days #240 mL 03/23/22 Diphen/Lido/Antacid 1:1:1 240 mL suspension sennosides 8.6 mg capsule (senna) 17.2 mg (2 x 8.6 mg) PO DAILY PRN 03/23/22 constipation 30 days #60 caps bismuth subcit K 140 3 cap PO QID 14 days #168 caps 03/25/22 mg-metronidazole 125 mg-tetracycline 125 mg cap (Pylera) famotidine 20 mg tablet 20 mg PO BEDTIME #30 tabs 04/03/22 sucralfate 1 gram tablet 1 g PO BID #60 tabs 07/01/22 hyoscyamine sulfate 0.125 mg tablet 0.125 mg PO QID #14 tabs 02/25/23 loperamide 2 mg capsule 2 mg PO Q6H PRN loose stool #14 02/25/23 caps Allergies Allergy/AdvReac Type Severity Reaction Status Date / Time No Known Allergies Allergy Verified 03/17/22 13:58 Review of Systems Review of Systems: Constitutional : No Weight loss, No Fever, No Chills, No Night Sweats, No Fatigue, No Malaise ENT/Mouth : No Hearing loss, No Ear Pain, No Nasal Congestion, No Sinus Pain, No Hoarseness, No sore throat, No Rhinorrhea, No Swallowing Difficulty Eyes: No Eye Pain, No Swelling, No Redness, No Foreign Body, No Discharge, No Vision Changes Cardiovascular : No Chest Pain, No SOB, No Dyspnea on Exertion, No Orthopnea, No Edema, No Palpitations Respiratory : No Cough, No Sputum, No Wheezing, No Smoke Exposure, No Dyspnea Gastrointestinal : Complaining of nausea vomiting and diarrhea, complaining of diffuse abdominal cramping just before going to the bathroom with diarrhea Genitourinary : no irregular bleeding, No Dysuria, No Urinary Frequency, No Hematuria, No Urinary Incontinence, No Urgency, No Flank Pain, No Urinary Flow Changes, No Hesitancy Musculoskeletal : No joint pain, No Myalgias, No Joint Swelling Skin : No Skin Lesions, No rash Neuro : No Weakness, No Numbness, No Paresthesias, No Loss of Consciousness, No Dizziness, No Headache Psych : No Anxiety/Panic, No Depression, No SI/HI/AH/VH, No Social Issues, Heme/Lymph: No Bruising, No Bleeding,No Lymphadenopathy Endocrine : No Polyuria, No Polydipsia, No Temperature Intolerance PMFSH Past Medical History Onset Date is defined in the Problem List Problems that require an onset date and time if occurred within 24 hrs of arrival to the ED Aortic Dissection and Rupture; Neurologic impairment; Cardiopulmonary Arrest; Endotracheal Intubation; Insertion or Replacement of Mechanical Circulatory Assist Device Medical History H. pylori infection Surgical History History of esophagogastroduodenoscopy (EGD) Social History Social History Alcohol intake: never Patient Tobacco Use Status: Never used Tobacco Smoked in Last 30 Days: No Use of substances other than those prescribed or required for medical reasons: No Advance Directives: No Advance Directives Information Provided: No Physical Exam ED Vital Signs: Vital Signs - 24 hr 02/24/23 19:26 02/24/23 23:44 02/25/23 02:46 Temperature 97.7 F 98.8 F 98.2 F Pulse Rate 88 85 89 Respiratory Rate 18 18 15 Blood Pressure 112/76 100/65 106/70 Pulse Oximetry 96 97 100 Oxygen Delivery Method Room Air Room Air Room Air BMI result Body Mass Index 23.3 HENPR Other: Appearance: Alert. Oriented X3. No acute distress. Eyes: Pupils equal, round and reactive to light. ENT: Pharynx normal. Neck: Normal inspection. Neck supple. No lymph nodes noted. No crepitus CVS: Normal heart rate and rhythm. Pulses normal. Normal S1 and S2 Respiratory: No respiratory distress. Breath sounds normal. No Wheezing. No rales Abdomen: Soft and nontender. No rigidity. No distention. Skin: Skin warm and dry. Normal skin color. Normal skin turgor. Extremities: No lower extremity edema. No Lacerations. No Rash Neuro: Oriented X 3. No motor deficit. No sensory deficit. Moving all extremities. No slurred speech. CN 2 through 12 grossly intact Psych: calm, cooperative, normal affect Course Course Course Narrative: RME: 38 yold male presents to ED for nausea vomiting diarrhea since yesterday. Patient states subjective fever. Patient denies any urinary symptoms. Last SARS ordered. Medications Administered Discontinued Medications Generic Name Dose Route Start Last Admin Trade Name Freq PRN Reason Stop Dose Admin Al Hydroxide/Mg Hydroxide 30 ml 02/25/23 04:21 02/25/23 04:52 Magnesium Hydrox/Alum Hydrox 30 Ml Oral.Susp PO 02/25/23 04:22 30 ml ONCE ONE Administration Belladonna Alkaloids/Phenobarbital 10 ml 02/25/23 04:21 02/25/23 04:52 Phenobarb/Hyoscy/Atropine/Scop 10 Ml Elixir PO 02/25/23 04:22 10 ml ONCE ONE Administration Famotidine 20 mg 02/25/23 04:21 02/25/23 04:53 Famotidine/Pf 20 Mg/2 Ml Vial IVPUSH 02/25/23 04:22 20 mg ONCE ONE Administration Sodium Chloride 1,000 mls @ 999 mls/hr 02/25/23 04:21 02/25/23 06:32 Ns IVCONT 02/25/23 05:21 Infused .Q1H1M ONE Infusion Lidocaine HCl 15 ml 02/25/23 04:21 02/25/23 04:53 Lidocaine Hcl Viscous 2 % 15 Ml Solution MUCOUS MEM 02/25/23 04:22 15 ml ONCE ONE Administration Medical Decision Making Medical Decision Making [facility] Narrative: -patient receiving IV fluids,, famotidine, viscous lidocaine p.o., GI cocktail. -my interpretation of labs: Normal hematology, normal chemistry -my interpretation of EKG: Sinus rhythm, heart rate 66, no ST segment depression or elevation, no T-wave inversion, QTC 423 Differential Diagnosis Differential Diagnoses: The differential diagnosis associated with the presentation includes (Gastritis, H pylori, gastroenteritis) Lab Data [facility] Lab Attestation statement: I reviewed the patient's lab results. 02/24/23 19:48 02/24/23 19:48 Labs: Lab Results 02/24/23 02/24/23 Range/Units 19:48 19:57 WBC 6.4 (4.8-10.8) X10*3/uL RBC 5.12 (4.60-5.80) X10*6/uL Hgb 16.6 (14.0-18.0) g/dl Hct 45.8 (42.0-52.0) % MCV 89.5 (80.0-98.0) fL MCH 32.4 (27.0-33.0) pg MCHC 36.2 H (31.0-36.0) g/dl RDW 11.9 (11.0-16.0) % Plt Count 167 (160-400) X10*3/uL MPV 9.7 (9.4-12.4) fL Immature Gran % (Auto) 0.2 (0.0-0.4) % Neut % (Auto) 69.5 (45-73) % Lymph % (Auto) 21.7 (20-40) % [place] % (Auto) 7.7 (2-11) % Eos % (Auto) 0.6 (0-4) % Baso % (Auto) 0.3 (0-2) % Lymph # (Auto) 1.4 (1.2-4.9) X10*3/uL [place] # (Auto) 0.5 (0.1-1.2) X10*3/uL Eos # (Auto) 0.0 (0.0-0.4) X10*3/uL Baso # (Auto) 0.0 (0.0-0.2) X10*3/uL Abs Immat Gran (auto) 0.01 (0.00-0.03) X10*3/uL Absolute Neuts (auto) 4.4 (2.0-8.3) x10*3/uL Absolute Nucleated RBC 0.000 (0.0-0.012) X10*3/uL Nucleated RBC % (auto) 0.0 (0.0-0.2) /100WBC PT 11.3 (11.1-13.3) SEC INR 0.9 (0.9-1.1) APTT 29.5 (26.0-36.4) SEC Sodium 137 (135-145) mmol/L Potassium 3.9 (3.3-5.1) mmol/L Chloride 101 (96-108) mmol/L Carbon Dioxide 25 (22-29) mmol/L Anion Gap 15 (12-20) BUN 8 L (9-16) mg/dL Creatinine 0.79 (0.5-1.4) mg/dL Estim Creat Clear Calc 111.3 Estimated GFR > 60 Random Glucose 96 (60-115) mg/dL Calcium 9.6 D (8.4-10.2) mg/dL Total Bilirubin 0.6 (0.0-1.0) mg/dL AST 25 (5-37) U/L ALT 29 (0-40) U/L Alkaline Phosphatase 119 H (39-117) U/L Total Protein 8.5 H (6.5-8.0) g/dL Albumin 4.7 (3.5-5.0) g/dL Lipase 14 (8-78) U/L Urine Color Yellow Urine Appearance Clear Urine pH 6.0 (5.0-9.0) Ur Specific [place] 1.020 (1.005-1.025) Urine Protein Trace (Neg-Trace) mg/dL Urine Glucose (UA) Negative (Negative) mg/dL Urine Ketones Negative (Negative) mg/dL Urine Blood Trace H (Negative) Urine Nitrite Negative (Negative) Ur Leukocyte Esterase Negative (Negative) Urine RBC 3-5 H (0-2) /HPF Urine WBC 0-5 (0-5) /HPF Ur Squamous Epith Cells 0-2 (0-2) /HPF Urine Bacteria None Seen (None Seen) Hyaline Casts 0-2 (0-2) /LPF Influenza Type A (PCR) NEGATIVE (Negative) Influenza Type B (PCR) NEGATIVE (Negative) RSV RNA Qual (PCR) NEGATIVE (Negative) SARS-CoV-2 RNA (RT-PCR) NEGATIVE (Negative) Discharge Plan Discharge Clinical Impression: Gastroenteritis Patient Disposition: Home, Self-Care Instructions: Gastroenteritis (ED) Additional Instructions: Please follow-up with your primary care physician tomorrow. If you have any worsening or new symptoms, please return to the emergency room or call 911 Prescriptions: New loperamide 2 mg capsule 2 mg PO Q6H PRN (Reason: loose stool) Qty: 14 0RF hyoscyamine sulfate 0.125 mg tablet 0.125 mg PO QID Qty: 14 0RF No Action senna 8.6 mg capsule 17.2 mg PO DAILY PRN (Reason: constipation) 30 Days Qty: 60 2RF Rx Instructions: Take 2 capsules by mouth at bedtime as needed for constipation Magic Mouthwash Diphen/Lido/Antacid 1:1:1 240 mL suspension 5 ml PO TID 10 Days Qty: 240 0RF Rx Instructions: Lidocaine Viscous 2 % 80mL; diphenhydramine 12.5 mg/5 mL 80mL; aluminum-mag hydrox-simeth 800uo-[id number]-49xp/5mL 80mL Pylera 140-125-125 mg capsule 3 cap PO QID 14 Days Qty: 168 0RF omeprazole 20 mg capsule,delayed release(DR/EC) 40 mg PO DAILY 30 Days Qty: 60 0RF Gaviscon Extra Strength 254-237.5 mg/5 mL suspension 10 ml PO QID PRN (Reason: dyspepsia) Qty: 355 0RF famotidine 20 mg tablet 20 mg PO BEDTIME Qty: 30 0RF sucralfate 1 gram tablet 1 g PO BID Qty: 60 0RF omeprazole 40 mg capsule,delayed release(DR/EC) 40 mg PO BID 28 Days Qty: 56 1RF sucralfate 1 gram tablet 1 g PO QIDACHS 14 Days Qty: 60 0RF Interventions: ED Discharge Assessment Last Done: 02/25/23 06:32 Discharge Date/Time: 02/25/23 06:33
[2023-02-24 23:44] VITALS: BP 100/65; PULSE 85; RESP 18; TEMP 37.1; O2SAT 97
[2023-02-25 02:46] VITALS: BP 106/70; PULSE 89; RESP 15; TEMP 36.8; O2SAT 100
--- NOTE | 2023-02-25 05:19 | PC.NURSE ---
Took over care at 3:15am Medicated per Apr, Reviewed discharge instructions with pt, pt verbalized understanding.
== END 2023-02-25 06:33 | disposition home or self-care (01) ==
PROVIDERS: Emergency Provider Emergency Medicine
DX: K52.9 Noninfective gastroenteritis and colitis, unspecified (principal); R11.2 Nausea with vomiting, unspecified; Z20.822 Contact with and (suspected) exposure to COVID-19; Z20.828 Contact with and (suspected) exposure to other viral communicable diseases
CPT/HCPCS: 0241U; 36415; 80053; 81001; 83690; 85025; 85610; 85730; 93005; 96361; 96374; 99284; 99285

== ENCOUNTER → 2023-02-25 04:25 | Outpatient (BNV) | payer SELFPAY | PROVIDERS: Emergency Provider Emergency Medicine; Visit Provider Internal Medicine Cardiovascular Disease | DX: R10.9 Unspecified abdominal pain (principal) | CPT/HCPCS: 93010 ==

== ENCOUNTER 2024-06-14 22:34 | Emergency (ER) | payer MEDICAID, OTHER, SELFPAY ==
[2024-06-14 22:38] VITALS: BP 106/75; PULSE 72; RESP 18; TEMP 36.6; O2SAT 97; BMI 22.3
--- OUTSIDE RECORDS SUMMARY | 2024-06-15 01:01 | XMS_ITS | Encounter Summary ---
Author Organization [employer] [facility] Address [address] [place] [address] Care Team Providers Care Credentials Specialist Name Role Phone Elda Arciniega [facility] Primary Care Provider [phone] Reason for Visit * Reason Onset Date Comments Appointment Request 06/30/2022 Encounter Details Date Type Department Care Team ([facility] st Contact Info) Description 06/30/2022 Telephone [facility] MEDICINE [address] [place], [place] [id number] [facility] [address] [place], [place] [phone] Appointment Request Social History Tobacco Use Types Packs/Day Years Used Date Smoking Tobacco: Never Passive Smoke Exposure: Never Smokeless Tobacco: Never Alcohol Use Standard Drinks/Week Comments Never 0 (1 standard drink = 0.6 oz pur e alcohol) Sex and Gender Information Value Date Recorded Sex Assigned at Male 12/21/2021 10:40 AM EDT Legal Sex Male 10:40 AM EDT Gender Identity Male 12/21/2021 10:40 AM EDT Sexual Orientation Choose not to disclose 2021 10:40 AM EDT COVID-19 Exposure Response Date Recorded In the last 10 days, have yo u been in contact with someone who was confirmed or suspected to have Coronavirus/COVID-19? No / Unsure 06/28/2022 6:45 PM EDT documented as of this encounter Miscellaneous Notes * Telephone Encounter - Margaret Kaufman RN - 06/30/2022 12:27 PM EDT Call to [facility], reports continues to have upper abdominal and chest burning. Seen on 06/28 for these sx. Per pt was supposed to get an endoscopy and referral to GI. Per pt advised that referral submitted but awaiting appt details. Per pt did pickle cutter amitriptyline 25mg and is taking as instructed. No worsening pain. Pt advised to await call back regarding referral. To seek [facility] Or return call to [facility] if sx worsen, vomiting or fever develops. Protocol Used: Abdominal Pain - Upper (Adult) Protocol-Based Disposition: See in Office or Video Visit within 2 Weeks Override (Final) Disposition: Discuss with PCP and Callback by Nurse Today Override Reason: Already seen and questions Video visit offer not recorded Positive Triage Question: * Intermittent pains shoot into chest, with sour taste in mouth * All higher-acuity triage questions were negative Care Advice Discussed: * Drink Clear Fluids * Diet * Antacid Medicine * Reasons To Call Back - You become worse * Telephone Encounter - Gregor Ann - 06/30/2022 12:10 PM EDT Symptom: Chest Pain - Adult Outcome: Talk to a nurse or provider within 15 minutes Reason: Getting worse The caller accepted this outcome Please contact pt at [phone] Serbian Speaker documented in this encounter Plan of Treatment Not on file documented as of this encounter Visit Diagnoses Not on filedocumented in this encounter Additional Health Concerns Assessment Noted Time PHQ-9 Depression Total Score: 0 05/20/19 23 10:16 AM EDT documented as of this encounter Care Teams Credentials Specialist Relationship Specialty Start Date End Date Elda Arciniega FNP [address] [place] [address] PCP - General Family Medicine 10/19/21 documented as of this encounter
--- OUTSIDE RECORDS SUMMARY | 2024-06-15 01:01 | XMS_ITS | Encounter Summary ---
Author Organization [employer] [facility] Address [address] [place] [address] Care Team Providers Care Station Attendant Name Role Phone Demian [facility] Primary Care Provider [phone] Reason for Visit * Reason Onset Date Comments Referral 06/30/2022 Encounter Details Date Type Department Care Team ([facility] st Contact Info) Description 06/30/2022 Telephone [facility] MEDICINE [address] [place], [place] [phone] [place] [facility] [address] [place], [place] [phone] Referral Social History Tobacco Use Types Packs/Day Years [...] encounter Miscellaneous Notes * Telephone Encounter - Mayra Guthrie - 07/27/2022 2:36 PM EDT Referral was processed on 07/13/2022. Letter was generated and mailed to pt with further instructions and office location * Telephone Encounter - Gregor Ann - 06/30/2022 12:09 PM EDT Tc from pt requesting status on 06/29/2022 for Gastroenterology Please contact pt at [phone] Estonian Speaker documented in this encounter Plan of Treatment Not on file documented as of this encounter Visit Diagnoses Not on filedocumented in this encounter Additional Health Concerns Assessment Noted Time PHQ-9 Depression Total Score: 0 05/20/19 23 10:16 AM EDT documented as of this encounter Care Teams Station Attendant Relationship Specialty Start Date End Date Elda Arciniega FNP [address] [place] [id number] PCP - General Family Medicine 10/19/21 documented as of this encounter
--- OUTSIDE RECORDS SUMMARY | 2024-06-15 01:01 | XMS_ITS | Clinical Summary ---
Author Organization [employer] Address [address] [place] [address] Care Team Providers Care Oracle Identity Management Consultant Name Role Phone Elda Arciniega [facility] Primary Care Provider [phone] Allergies No known active allergies Medications cholecalciferol (Vitamin D-3) 50 MCG (1999) capsule Take by mouth 1 (one) time each day. 2 Active omeprazole (PriLOSEC) [address] capsule 20 mg 2 times daily. 5 Active acetaminophen (Tylenol) 500 MG tablet Take 2 tablets (1,000 mg) by mouth every 6 (six) hours if needed for moderate pain or fever for up to 25 doses. 40 tablet 3 Active lidocaine (Lidoderm) 5 % patchIndication s:Chest pain of unknown etiology Apply topically to affected areas. Leave on for up to 12 hours 30 patch 1 3 Active loratadine (Claritin) 10 MG tabletIndicatio ns:Throat irritation TAKE 1 TABLET BY MOUTH EVERY MORNING 90 tablet 3 Active pseudoephedrine (Sudafed) 30 MG tablet Take 1 tablet (30 mg) by mouth every 4 (four) hours if needed for congestion for up to 10 days. 30 tablet 4 Active albuterol 108 (90 Base) MCG/ACT inhaler Inhale 2 puffs every 4 (four) hours if needed for wheezing. 18 g 4 Active imipramine (Tofranil) 10 MG tabletIndicatio ns:Chest pain of unknown etiology Take 1 tablet (10 mg) by mouth at bedtime. 30 tablet 11 4 11/18/19 25 Active Active Problems Problem Noted Date Diagnosed Date Tinea pedis 06/29/2022 Healthcare maintenance 04/12/2022 Overview (04/12/2022): CRC: Routine age 46, no family hx PSA: Discuss age 41, no family hx Immunizations: Needs COVID and flu. Declines today Vision: Discuss at f/u Dental: Discuss at f/u STi screening: RPR neg 06/2021 HIV: Neg 06/2021 Hepatitis: Neg 06/2021 Screening Labs: A1c: 06/2021, 5.4 History of treatment for tuberculosis 03/30/2022 Overview (04/12/2022): ?? Completed tx through [facility] TB clinic Right lower lobe pulmonary nodule 03/30/2022 Odynophagia 02/25/2022 Assessment & Plan (08/16/2022 9:56 PM EDT): Pt already evaluated for similar symptom multiple times in the past w neg EKG per chart review and clinically symptoms not suggestive of cardiac etiology -CT chest w/o contrast :3 mm calcified right upper lobe granuloma . There are a few areas of perifissural thickening likely representing intrapulmonary lymph nodes. 2-3 mm right lower lobe pulmonary nodule -Barium swallow 02/2022: Unremarkable barium swallow exam. -EGD 03/22/2022-esophageal inlet patch presents, chronic gastric inflammation otherwise unremarkable. Biopsies negative. -per PCP records -Hx of H.pylori s/p tx w neg LEAH -Seen by ENT with negative laryngoscopy 06/2022-per PCP records Neg strep throat today Had 03/2022 Neg HIV,wnl chem,ESR,CBC -Pt has upcoming apt w GI esophagus specialist on 09/14/2022 to f up possible GI symptoms -will need EGD,manometry? To r/o if actual symptoms are from severe GERD, esophageal spasms? But seems not fully responsive to PPI and famotidine before so will hold on resuming h2 blockers,continue x now PPIs in fasting -will do Gn/Cl throat PCR obtained today -I will call pt if positive result -magic mouth wash S&S explained to pt and cepacol prn x now -continue to f w PCP after GI evaluation -alarm signs and symptoms discussed w pt -if neg GI workup -may need to continue w further cardiac eval? Assessment & Plan (02/25/2022 11:53 AM EST): Patient of [facility], here for a sick visit, seen at [facility] most recently yesterday on 02/24/2021 after patient presented due to severe thoracic chest pain that radiates into his throat, shoulders and back, Prior to that pt has been seen on numerous occassions at [facility] 12/27, 01/16 and 02/12 and he has been worked up to r/o ACS and has been given a diagnosis of GERD. Pt has been taking H2 Blockers and PPIs with no good results. Today he reports that he has been loosing weight and has difficulty swallowing. When reviewing his chart he has lost close to 20 lbs in a 2 month period.( Dec 2021- Feb 2022 His exam today shows a weight of 143 lbs down from 160 back in December, rest of vital signs are stable. I reviewed previous EKG results and blood work obtained during his previous ER visits. Etiology ? Acute Coronary syndrome has been ruled out on multiple occassions but other etiologies such as Prinzmetal angina should remain on his differential. Due to his lack of response to appropriate treatment for Gastritis.GERD other etiologies such as fungal esophagitis, infectious need to be ruled out as well Plan: Most concerning is his rapid weight loss associated with c/o severe heartburn and chest pain that has not responded to H2 blockers and PPIs and 17 lb weight loss In less than a 2 month period I have recommended we proceed with a Barium Swallow and a CT of his chest Chest CT has been scheduled for today and Barium Swallow for Tuesday. I have also ordered a CBC, ESR,HIV test Pt has an appointment at [facility] in 2 weeks, but pt tells me he feels he cannot wait until then. I have asked our Nurse to contact [facility] to see if they have a cancellation so he could be seen sooner. Pt has been placed on a waiting list In the meantime I have sent to his Pharmacy Sucralfate to use 3 to 4 x day. I have schedule an appointment with PCP soon to follow up on Barium Swallow and Chest CT Pt agreeable with plan Chest pain of unknown etiology 02/04/2022 Overview (11/21/2022): ?? Extensive hx of vague chest pain/burning radiating into back of throat since 10/2021. Sx started after COVID-19 infection. Not associated with food intake. No n/v/d. Sx are constant. Currently followed by [facility] GI ?? Negative serial troponins and EKG in ED setting ? ? Chest CT form 02/25/22 with incidental finding of 2-3mm R lower lobe pulmonary nodule. No follow up indicated per Amado guidelines. Otherwise CT negative. ? ? 03/01/2022 Negative barium swallow ? ? 03/22/2022-Endoscopy with esophageal inlet patch presents, chronic gastric inflammation otherwise unremarkable. Biopsies negative. ? ? 06/2022-Laryngoscopy by ENT: Negative ? ? Previously had negative Strep test and Throat Culture ? ? Negative Pharyngeal GC/CT, low risk ? ? Previously failed multiple trial of PPI, H2 blockers, sucralfate and amitryptiline ? ? 09/16/22-Repeat endoscopy negative Assessment & Plan (05/01/2023 4:59 PM EDT): Pt requesting body MRI for further evaluation of sx. I discussed with patient that I do not recommend further imaging as it is unlikely to yield additional information Provided reassurance that extensive lab and imaging eval has been normal Possible functional GERD sx? Patient will trial doxepin x 3 months as advised by GI. If no improvement will consider SSRI trial Declines BH referral Assessment & Plan (11/21/2022 6:57 PM EDT): ?? Provided reassurance to patient that extensive testing has thus far been reassuring although etiology remains unclear. Possible functional dysphagia/esophageal disorder. ?? Pt requesting referral to [facility]. Previously attempted to refer but insurance denied. Pt will speak to insurance to try and switch to c3 ?? INCREASE nortriptyline to 50mg at bedtime ?? Patient frequently rubbing intercostal muscles of left anterior chest wall. Will trial topical lidocaine patch ?? Will review literature for possible relationship with hx of COVID-19 infection Assessment & Plan (02/25/2022 11:54 AM EST): See Under dysphagia A/P Assessment & Plan (02/04/2022 9:55 AM EST): - Multiple negative ACS r/o - Abnormal CXR 12/28/2021 suggestive of possible penumonitis - No improvement with tx for dyspepsia - Given change in sx with cough and chills development will order CXR today to expedite care and consult with TB clinic pending results. Pt was previously inconsistent with rifampin but has now been regularly taking; low suspicion for active TB - Rx naproxen 500mg b.i.d - F/u with PFT's as scheduled - F/u with GI as scheduled - Will contact patient pending x-ray results Pterygium 01/27/2022 Resolved Problems Problem Noted Date Diagnosed Date Resolved Date Unintentional weight loss 02/25/2022 Assessment & Plan (02/25/2022 11:54 AM EST): See Under dysphagia A/P Encounters Date Type Department Care Team Description 04/30/2024 Telephone [facility] [address], [place] [phone] MillinocketElda FNP No show 04/23/2024 Patient Outreach [facility] [address], [place] [phone] Millin[place]Elda [facility] Pre-visit Planning (SDOH negative, Tobacco screening negative. ) from Last 3 Months Immunizations Name Administration Dates Next Due Hep B, adult 01/12/2012,04/13/2011 Influenza, IIV3, injectable 03/01/2013, 2,03/30/2011 TD (adult), 2 Lf tetanus tox oid, preservative free, adsorbed 02/21/2015 Td (adult), unspecified 02/21/2015,03/30/2011 Social History Tobacco Use Types Packs/Day Years Used Date Smoking Tobacco: Former Cigarettes Q uit: 02/22/2004 Passive Smoke Exposure: Past Smokeless Tobacco: Never Alcohol Use Standard Drinks/Week Comments Never 0 (1 standard drink = 0.6 oz pur e alcohol) Depression Answer Date Recorded Patient Health Questionnaire-9 Score 0 11/18/2023 Patient Health Questionnaire-9 Score 0 11/18/2023 Last PHQ-9: Questionnaire Data Not on file 0 11/18/2023 Housing Stability Answer Date Recorded What is your housing situation today? I have polly morrow 11/18/[address] you li ve. Do you have problems with any of the following? None of the above 11/18/2023 Food Insecurity Answer Date Recorded Within the past 12 months, y ou worried that your food would run out before you got money to buy more: Never True 11/18/2023 Within the past 12 months,th e food you bought just didn't last and you didn't have enough money to get more: Never True Transportation Answer Date Recorded In the past 12 months, has l ack of transportation kept you from medical appts, meetings, work or from getting things needed for daily living? No 11/18/2023 Utilities Answer Date Recorded In the past 12 months, has t he electric, gas, oil or water company threatened to shut off services in your home? No 11/18/2023 Depression Answer Date Recorded Patient Health Questionnaire-2 Score 0 11/18/2023 Internet Access Answer Date Recorded Internet Access Q1 Yes 11/18/2023 Internet Access Q2 Not on file 11/18/2023 Sex and Gender Information Value Date Recorded Sex Assigned at Male 12/21/2021 10:40 AM EDT Legal Sex Male 10:40 AM EDT Gender Identity Male 12/21/2021 10:40 AM EDT Sexual Orientation Choose not to disclose 2021 10:40 AM EDT Last Filed Vital Signs Vital Sign Reading Time Taken Comments Blood Pressure 120/71 11/18/2023 9:32 AM EDT Pulse 61 11/18/2023 9:32 AM EDT Temperature 36.6 ??C (97.8 ??F) 11/18/2023 9:32 AM ED T Respiratory Rate 18 11/18/2023 9:32 AM EDT Oxygen Saturation 100% 08/31/2023 4:01 PM EDT Inhaled Oxygen Concentration - - Weight 66.7 kg (147 lb) 11/18/2023 9:32 AM EDT Height 154.9 cm (5' 1 ) 11/18/2023 9:32 AM EDT Body Mass Index 27.78 11/18/2023 9:32 AM EDT Plan of Treatment Health Maintenance Due Date Last Done Comments Alcohol/Substance Use Screening 1998 Family Planning (PISQ) 2001 Pneumococcal Vaccine: Pediatrics (0 to 5 Years) and At-Risk Patients (6 to 49) Years) (1 of 2 - PCV) 2005 Hepatitis B Vaccines (3 of 3 - 19+ 3-dose series) 03/08/2012 01/12/2012, 04/13/2011 DTaP/Tdap/Td Vaccines (1 - Tdap) 02/22/2015 02/21/2015, 02/21/2015, 03/30/2011 COVID-19 Vaccine (1 - 2023-2 5 season) 2023 Influenza Vaccine (#1) 2023 4, 01/12/2012, 03/30/2011 Dental Oral Exam 02/15/2024 08/15/2023 Dental Prophylaxis 02/15/2024 08/15/2023 Dental X-Ray: Bitewings 08/15/2024 08/15/2023 Depression Screening 11/17/2024 11/18/2023, 11/18/2023 Tobacco Screening 12/11/2024 12/12/2023 SDOH Screening 04/23/2025 04/23/2024 Dental X-Ray: Full Mouth 08/15/2026 08/15/2023 Lipid Panel 12/24/2026 12/24/2021, 06/23/2021 Zoster Vaccines (1 of 2) 01/27/2036 RSV Patients and Patients Aged 60 years or older (1 - 1-dose 75+ series) 2061 Hepatitis C Screening Completed 06/23/2021 HIV Screening Completed 03/30/2022, 06/23/2021 HIB Vaccines Aged Out No longer eligi ble based on patient's age to complete this topic HPV Vaccines Aged Out No longer eligi ble based on patient's age to complete this topic Hepatitis A Vaccines Aged Out No long er eligible based on patient's age to complete this topic IPV Vaccines Aged Out No longer eligi ble based on patient's age to complete this topic Meningococcal Vaccine Aged Out No sadie krista eligible based on patient's age to complete this topic RSV under 20 months Aged Out No longe r eligible based on patient's age to complete this topic Rotavirus Vaccines Aged Out No longer eligible based on patient's age to complete this topic Procedures Procedure Name Priority Date/Time Associated Diagnosis Comments PROPHYLAXIS - ADULT Routine 08/15/2023 4 :00 PM EDT INTRAORAL - COMPLETE SERIES OF RADIOGRAPHIC IMAGES Routine 08/15/2023 4:00 PM EDT COMPREHENSIVE ORAL EVALUATION - NEW OR ESTABLISHED PATIENT Routine 08/15/2023 4:00 PM EDT HIV 1/2 ANTIGEN/ANTIBODY, FOURTH GENERATION W/RFL Routine 03/30/2022 10:45 AM EST LIPID PANEL, STANDARD Routine 12/24/2021 10:22 AM EDT ZZZ HISTORICAL HEPATITIS C AB W/REFL TO HCV RNA, QN, PCR Routine 06/23/2021 10:32 AM EDT from Last 3 Months or Most Recently Relevant to Health Maintenance Results * HIV-1/2 Antigen and Antibodies, Fourth Generation, with Reflexes (03/30/2022 10:45 AM EST) [facility] HIV Antigen/Antibody, 4th Generation NON-REAC TIVE NON-REAC TIVE [facility] [employer] [facility] Comment: HIV-1 antigen and HIV-1/HIV-2 antibodies were not detected. There is no laboratory evidence of HIV infection. PLEASE NOTE: This information has been disclosed to you from records whose confidentiality may be protected by state law. ??If your state requires such protection, then the state law prohibits you from making any further disclosure of the information without the specific written consent of the person to whom it pertains, or as otherwise permitted by law. A general authorization for the release of medical or other information is NOT sufficient for this purpose. ?? For additional information please refer to http://education.Social Pulse.[facility]/faq/LCP645 (This link is being provided for informational/ educational purposes only.) The performance of this assay has not been clinically validated in patients less than 2 years old. 03/30/2022 10:4 5 AM EST 03/30/2022 10:45 AM EST Narrative [facility] - 03/30/2022 8:07 PM EST FASTING:NO FASTING: NO Leo Madison MD LAB BLOOD ORDERABLES Final Result [facility] [address] [place] [address] [employer] [facility] [address], ([address]) [place] [address] * (ABNORMAL) LIPID PANEL, STANDARD (12/24/2021 10:22 AM EDT) Chol/HDLC Ratio 5.2(H) <5.0 (calc) CONVERTED LEGACY LABS Cholesterol, Total 193 <200 mg/dL CONVERTED LEGACY LABS HDL Cholesterol 37(L) > OR = 40 mg/dL CONVERTED LEGACY LABS LDL Cholesterol 116(H) mg/dL (calc) CONVERTED LEGACY LABS Comment: Reference range: <100 ?? Desirable range <100 mg/dL for primary prevention; ?? <70 mg/dL for patients with CHD or diabetic patients ?? with > or = 2 CHD risk factors. ?? LDL-C is now calculated using the Darrick-Lewis ?? calculation, which is a validated novel method providing ?? better accuracy than the Friedewald equation in the ?? estimation of LDL-C. ?? Darrick SS et al. MICHEL. 2013;310(19): 3728-3319 ?? (http://education.Sophono/faq/AOV817) Non-HDL Cholesterol 156(H) <130 mg/dL (calc) CONVERTED LEGACY LABS Comment: For patients with diabetes plus 1 major ASCVD risk ?? factor, treating to a non-HDL-C goal of <100 mg/dL ?? (LDL-C of <70 mg/dL) is considered a therapeutic ?? option. Triglycerides 278(H) <150 mg/dL CONVE RTED LEGACY LABS Comment: ?? If a non-fasting specimen was collected, consider repeat triglyceride testing on a fasting specimen if clinically indicated. ?? Lorie et al. J. of Clin. Lipidol. 2015;9:129-169. ?? 12/24/2021 10:2 2 AM EDT [facility] LAB BLOOD ORDERABLES Final Re sult Performing Organization Address City/[facility]/ZIP Co de Phone Number CONVERTED LEGACY LABS * HEPATITIS C AB W/REFL TO HCV RNA, QN, PCR (06/23/2021 10:32 AM EDT) HEPATITIS C ANTIBODY NON-REACT ROSA NON-REACT ROSA [facility] INDEX 0.02 <1.00 [facility] Comment: ?? HCV antibody was non-reactive. There is no laboratory ?? evidence of HCV infection. ?? In most cases, no further action is required. However, if recent HCV exposure is suspected, a test for HCV RNA (test code 18015) is suggested. ?? For additional information please refer to http://education.Helidyne/faq/LMJ37f8 (This link is being provided for informational/ educational purposes only.) ?? 06/23/2021 10:3 2 AM EDT Kira DUGAN HISTORICAL/NON ORDERABLE LABS Final Result Performing Organization Address [facility] Co de Phone Number [facility] [address] from Last 3 Months or Most Recently Relevant to Health Maintenance Insurance [employer] H[employer] FULL DENTAL-[facility] MEDICAID LIMITED ADULT DENTAL - HSN FULL (MEDICAID) Care Teams Oracle Identity Management Consultant Relationship Specialty Start Date End Date Elda Arciniega FNP [address] [place] [phone] PCP - General Family Medicine 10/19/21
--- OUTSIDE RECORDS SUMMARY | 2024-06-15 01:01 | XMS_ITS | Clinical Summary ---
Author Organization [facility] Address [address] [place] [address] Care Team Providers Care School Guidance Counselor Name Role Phone Vandana Kapadia Primary Care Provider [phone] Allergies No known active allergies Medications gabapentin (NEURONTIN) 100 mg capsule Take 2 capsules (200 mg total) by mouth at bed time. 60 capsule 1 12/08/2023 Active Active Problems Problem Noted Date Diagnosed Date Tinea pedis 06/29/2022 06/29/2022 Right lower lobe pulmonary nodule 03/30/2022 06/29/2022 Odynophagia 02/25/2022 06/29/2022 Overview (06/29/2022): Last Assessment & Plan: Patient of [facility], here for a sick visit, seen at [facility] most recently yesterday on 02/24/2021 after patient presented due to severe thoracic chest pain that radiates into his throat, shoulders and back, Prior to that pt has been seen on numerous occassions at [facility] 12/27, 01/16 and 02/12 and he [...] ESR,HIV test Pt has an appointment at [facility] in 2 weeks, but pt tells me he feels he cannot wait until then. I have asked our Nurse to contact [facility] to see if they have a cancellation so he could be seen sooner. Pt has been placed on a waiting list In the meantime I have sent to his Pharmacy Sucralfate to use 3 to 4 x day. I have schedule an appointment with PCP soon to follow up on Barium Swallow and Chest CT Pt agreeable with plan Unintentional weight loss 02/25/20222022 Overview (06/29/2022): Last Assessment & Plan: See Under dysphagia A/P Chest pain of unknown etiology 02/04/2022 0 06/29/2022 Overview (06/29/2022): ? ? Negative barium swallow 03/01/[address] [facility] ? ? EGD 03/22/2022-esophageal inlet patch presents, chronic gastric inflammation otherwise unremarkable. Biopsies negative. ? ? Completed 10 day course of h.pylori tx ? ? Chest CT form 02/25/22 with incidental finding of 2-3mm R lower lobe pulmonary nodule. No follow up indicated per Amado guidelines. Otherwise CT negative. Last Assessment & Plan: See Under dysphagia A/P Assessment & Plan (09/14/2022 2:03 PM EDT): It is unclear to me what is going on with him. There are some elements of reflux disease especially with the burning sensation, however he repeatedly describes it as itching which does not really fit with anything. He also describes having the burning sensation in his left chest which is a very unusual place for reflux related symptoms to refer to, especially without any epigastric symptoms. At some point, I did question whether he has postnasal drip and that can explain the scratchy feeling in his throat, the constant clearing of his throat however it will not explain the pain in his left chest. 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 Regardless, he is not ingesting the pain but he could be inhaling these chemicals. He does not really have any prominent respiratory symptoms, he does report cough but that seems to be secondary to this a sensation he is describing in his chest. I think a repeat endoscopy makes sense and he is already scheduled for one in 2 days. If there is a lot of inflammation there, then it should be acid related problems I will treat him with high-dose PPI. If that is not the case, I might opt to treat him with with the neuromodulators. If, despite treatment, symptoms are persisting, he may need to see a ENT physician or air conditioning supervisor to investigate other etiologies. I explained this to the patient and his daughter and they are in agreement. Pterygium 01/27/2022 06/29/2022 Social History Tobacco Use Types Packs/Day Years Used Date Smoking Tobacco: Former Cigarettes Smokeless Tobacco: Never Tobacco Cessation:Counseling Given: Not Answered Alcohol Use Standard Drinks/Week Comments Not Currently 0 (1 standard drink = 0.6 oz pur e alcohol) Sex and Gender Information Value Date Recorded Sex Assigned at Male 08/12/2023 10:37 AM EDT Legal Sex Male 3:15 PM EST Gender Identity Not on file Sexual Orientation Not on file Last Filed Vital Signs Vital Sign Reading Time Taken Comments Blood Pressure 125/83 12/08/2023 8:20 AM EDT Pulse 83 12/08/2023 8:20 AM EDT Temperature 36.3 ??C (97.3 ??F) 04/08/2023 8:28 AM ES T Respiratory Rate 18 12/08/2023 8:20 AM EDT Oxygen Saturation 99% 04/08/2023 8:28 AM EST Inhaled Oxygen Concentration - - Weight 63.1 kg (139 lb 3.2 oz) 12/08/2023 8:20 A M EDT Height 160 cm (5' 3 ) 04/08/2023 8:28 AM EST Body Mass Index 24.66 04/08/2023 8:28 AM EST Plan of Treatment Health Maintenance Due Date Last Done Comments Hepatitis C Screening 1986 Varicella Vaccines (1 of 2 - 13+ 2-dose series) 1999 Hepatitis B Vaccines (3 of 3 - 19+ 3-dose series) 03/08/2012 01/12/2012, 04/13/2011 DTaP,Tdap,and Td Vaccines (1 - Tdap) 02/22/2015 02/21/2015, 02/21/2015, 03/30/2011 COVID-19 Vaccine ( - 2023-2 5 season) 2023 Alcohol/Substance Use Screening 02/22/2024 12/08/2023 Depression Screening and Follow-Up 02/22/2024 Social Drivers of Health Annual Screening 02/22/2024 Influenza Vaccine (Season Ended) 2024 03/01/2013, 01/12/2012, 03/30/2011 RSV Vaccine (60+ years old and patients) (1 - 1-dose 75+ series) 2061 HIV Screening Completed 03/30/2022, 03/30/2022, 06/23/2021 Pneumococcal Vaccine: Pediatric (0-5 Years) and At-Risk Patients (6-50 Years) Aged Out No longer eligible based on patient's age to complete this topic Insurance [employer] HSNO/FREE CARE Care Teams School Guidance Counselor Relationship Specialty Start Date End Date Vandana Kapadia [address] [place] [phone] PCP - General Family Medicine 06/28/22
--- OUTSIDE RECORDS SUMMARY | 2024-06-15 01:01 | XMS_ITS | Encounter Summary ---
Author Organization [facility] Address [address] 7[address] [place] [address] Care Team Providers Care Chief Nurse Anesthetist Name Role Phone Elda Arciniega [facility] Primary Care Provider [phone] Reason for Visit * Reason Onset Date Comments Nurse Triage 09/06/2022 Encounter Details Date Type Department Care Team ([facility] st Contact Info) Description 09/06/2022 Telephone [facility] [address] [place], [place] [phone] [facility] [address] [place] [address] Nurse Triage Social History Tobacco Use Types Packs/Day Years [...] suspected to have Coronavirus/COVID-19? No / Unsure 08/16/2022 3:42 PM EDT documented as of this encounter Miscellaneous Notes * Telephone Encounter - Calista Goddard RN - 09/06/2022 12:51 PM EDT Triage call with [place] K[place] [id number] Pt reports a chest pain consisting of a burning sensation in the throat and left chest. Pt describes it as feeling itchy inside as well. Pt reports a sour taste in the mouth at times and when this is strong it makes it hard to breath. Pt reports continues to take prilosec as prescribed but, it isn't doing anything for this discomfort. Pt is advised to come to [facility] today to be seen by provider and Pt agrees . Pt is given hours open til 8pm. Protocol Used: Chest Pain (Adult) Protocol-Based Disposition: See in Office or Video Visit Today Video visit not offered Positive Triage Question: * All other patients with chest pain (Exception: fleeting chest pain lasting a few seconds) * All higher-acuity triage questions were negative Care Advice Discussed: * Reassurance and Education - Fleeting Chest Pains * Reasons To Call Back - Chest pain increases in frequency, duration or severity - Chest pain lasts over 5 minutes - Chest pains persist over 3 days - Difficulty breathing or unusual sweating occurs - Fever over 100.4 F (38.0 C) - You become worse * Telephone Encounter - Gregor Ann - 09/06/2022 12:32 PM EDT Symptom: Chest Pain - Adult Outcome: Transfer to a nurse or provider NOW! Reason: Trouble breathing The caller accepted this outcome Please contact pt at [phone] Bulgarian Speaker documented in this encounter Plan of Treatment Not on file documented as of this encounter Visit Diagnoses Not on filedocumented in this encounter Additional Health Concerns Assessment Noted Time PHQ-9 Depression Total Score: 0 05/20/19 23 10:16 AM EDT documented as of this encounter Care Teams Chief Nurse Anesthetist Relationship Specialty Start Date End Date Elda Arciniega FNP [address] [place] [id number] PCP - General Family Medicine 10/19/21 documented as of this encounter
--- OUTSIDE RECORDS SUMMARY | 2024-06-15 01:01 | XMS_ITS | Encounter Summary ---
Author Organization [facility] Address [address] [place] [address] Care Team Providers Care Tool And Die Engineer Name Role Phone Vandana Kapadia Primary Care Provider [phone] Reason for Visit * Reason Onset Date Comments PAC Surgery/procedure Scheduling 01/25/2022 Encounter Details Date Type Department Care Team (Late st Contact Info) Description 01/25/2022 Telephone [facility] Patient Access [facility] [address] [place] [id number] Telephone Intake, Staff PAC Surgery/procedure Scheduling Social History Tobacco Use Types Packs/Day Years Used Date Smoking Tobacco: Never Assessed Sex and Gender Information Value Date Recorded Sex Assigned at Male 08/12/2023 10:37 AM EDT Legal Sex Male 3:15 PM EST Gender Identity Not on file Sexual Orientation Not on file documented as of this encounter Miscellaneous Notes * Telephone Encounter - Kimmie Garcia - 01/25/2022 9:32 AM EST Pt needs to have endoscopy scheduled documented in this encounter Plan of Treatment Not on file documented as of this encounter Visit Diagnoses Not on filedocumented in this encounter Care Teams Tool And Die Engineer Relationship Specialty Start Date End Date Vandana Kapadia [address] [place] [id number] PCP - General Family Medicine 06/28/22 documented as of this encounter
--- OUTSIDE RECORDS SUMMARY | 2024-06-15 01:01 | XMS_ITS | Encounter Summary ---
Author Organization [employer] [facility] Address [address] [place] [address] Care Team Providers Care Machine Etcher Name Role Phone Elda Arciniega [facility] Primary Care Provider [phone] Reason for Visit * Reason Onset Date Comments triage 04/09/2022 Encounter Details Date Type Department Care Team ([facility] st Contact Info) Description 04/09/2022 Telephone [facility] [address] [place], [place] [phone] [facility] [address] [place], [place] [phone] triage Social History Tobacco Use Types Packs/Day Years Used Date Smoking Tobacco: Never Smokeless Tobacco: Never Alcohol Use Standard [...] suspected to have Coronavirus/COVID-19? No / Unsure 04/05/2022 11:12 AM EST documented as of this encounter Miscellaneous Notes * Telephone Encounter - Calista Goddard RN - 04/21/2022 3:30 PM EST Coatings Inspector contacted by Pharmacist Suyapa. Pt scheduled for HDF 04/22 but, Pt not admitted to hospital, seen in ED and by high school computer science teacher. [facility]ings [facility] Clinical Information Systems Director [place] [id number] made call to Pt. HDF apt 04/22 canceled and explained to Pt the need for cancellation. Pt rescheduled for Ed follow up h-pylori and acid reflux 05/04 @ 345pm and Pt agreed with changed schedule. Pt advised to return to ED if symptoms continue or get worse and Ptagreed. Updated pharmacist with change * Telephone Encounter - Promise Partida RN - 04/09/2022 3:14 PM EST Called pt. Back because I found an earlier appt. For 04/22/22 at 1030am with PCP for HDF appt. From [place]07/22 [facility] [place] H.[place]-acid reflux. Called via [employer] [facility] [phone]. Pt. Will resend RX request. * Telephone Encounter - Promise Partida RN - 04/09/2022 2:38 PM EST Called pt. Via [employer] [phone] Rafiq. Pt. States that he has been having heart burn feelings. He states at last office visit he was supposed to get a referral to a specialist to have his nerves tested or to a specialist to test his swallowing. Pt. Was recently also admitted to [facility] in 03/17/22 and 04/07/22 for H.Pylori infection. Pt. States that provider at [facility] states he needs to get referrals for further testing ordered by PCP. Please look into this as I have told pt. To go to walk in in the meantime or go back to [facility] ED to get assessment of mid chest burning sx. Pt. Denies vomiting.Denies diarrhea. States he feels a burning sensation in his chest. Pt. Wants to know if referral was made for him to see specialist.Please have team nurse call pt. With information on referrals needed. In the meantime, pt. Will go back to [facility] ED if he needs to be seen. FU appt. Made with PCP for 04/22/22 at 1030am. * Telephone Encounter - Noris Aguirre - 04/09/2022 2:01 PM EST Patient calling to report heart burn . Patient speaks pashto. Advised triage nurse will call patient back. documented in this encounter Plan of Treatment Not on file documented as of this encounter Visit Diagnoses Not on filedocumented in this encounter Care Teams Machine Etcher Relationship Specialty Start Date End Date Elda Arciniega FNP [address] [place] [phone] PCP - General Family Medicine 10/19/21 documented as of this encounter
== END 2024-06-15 00:59 | disposition left against medical advice (07) ==
PROVIDERS: Emergency Provider Emergency Medicine
DX: H57.12 Ocular pain, left eye (principal); Z53.21 Procedure and treatment not carried out due to patient leaving prior to being seen by health care provider
CPT/HCPCS: 99281

== ENCOUNTER 2024-07-19 17:39 | Outpatient (REF) | payer MEDICAID, OTHER, SELFPAY ==
--- OUTSIDE RECORDS SUMMARY | 2024-07-19 17:41 | XMS_ITS | Referral Summary ---
Author Organization [facility] Address [address] [place] [address] Care Team Providers Care Social Media Intern Name Role Phone Vandana Kapadia Primary Care Provider [phone] Allergies No known active allergies Medications gabapentin (NEURONTIN) 100 mg capsule Take 2 capsules (200 mg total) by mouth at bed time. 60 capsule 1 12/08/2023 Active Active Problems Problem Noted Date Diagnosed Date Tinea pedis 06/29/2022 06/29/2022 Right lower lobe pulmonary nodule 03/30/2022 06/29/2022 Odynophagia 02/25/2022 06/29/2022 Overview (06/29/2022): Last Assessment & Plan: Patient of [facility], here for a sick visit, seen at [facility] most recently yesterday on 02/24/2021 after patient presented due to severe thoracic chest pain that radiates into his throat, shoulders and back, Prior to that pt has been seen on numerous occassions at [facility] 12/27, 01/16 and [...] ESR,HIV test Pt has an appointment at [facility] in 2 weeks, but pt tells me he feels he cannot wait until then. I have asked our Nurse to contact [facility] to see if they have a cancellation [...] ? ? Negative barium swallow 03/01/2022 through [facility] ? ? EGD 03/22/2022-esophageal inlet patch [...] in his left chest. 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 I explained this [...] 04/08/2023 8:28 AM EST Plan of Treatment Not on file [place] [place] [address] HSNO/FREE CARE Care Teams Social Media Intern Relationship Specialty Start Date End Date Vandana Kapadia [address] [place] [id number] PCP - General Family Medicine 06/28/22
[2024-07-22 12:43] LABS: H Pylori Breath Test Negative (Negative)
== END 2024-07-19 17:40 | disposition home or self-care (01) ==
LOC: HO.HHCLNP 17:39
PROVIDERS: Visit Provider Family Medicine
DX: R20.8 Other disturbances of skin sensation (principal); R07.89 Other chest pain
CPT/HCPCS: 83013